=== PATIENT | male | born 1950 | race Caucasian/White ===

== ENCOUNTER 2018-10-26 00:03 | Emergency (ER) | payer OTHER, BC ==
--- OUTSIDE RECORDS SUMMARY | 2018-10-26 00:06 | XMS REPORT | Clinical Summary ---
:1950 Author Organization [facility] Address [address] [place] [id number] Care Team Providers Name Role Phone Unavailable Primary Care Provider Unavailable Allergies Active Allergy Reactions Severity Noted Date Comments Milk Containing Products 07/24/2018 Medications Not on file Active Problems Problem Noted Date Pancreatic cancer 08/27/2018 Encounters Date Type Specialty Care Team Description 08/30/2018 Hospital Encounter Hematology and Iftikhar Perera Malignant neoplasm Oncology MD Alfred of pancreas, unspecified location of malignancy (HCC) (Primary Dx) 08/30/2018 Orders Only Hematology and Iftikhar Perera Oncology MD Alfred after 10/25/2017 Social History Tobacco Use Types Packs/Day Years Used Date Never Assessed Sex Assigned at Date Recorded Not on file Job Start Date Occupation Industry Not on file Not on file Not on file Travel History Travel Start Travel End No recent travel history available. Last Filed Vital Signs Vital Sign Reading Time Taken Blood Pressure 132/77 08/30/2018 1:04 PM CDT Pulse 78 08/30/2018 1:04 PM CDT Temperature 36.4 C (97.5 F) 08/30/2018 1:04 PM CDT Respiratory Rate 17 08/30/2018 1:04 PM CDT Oxygen Saturation 97% 08/30/2018 1:04 PM CDT Inhaled Oxygen Concentration - - Weight 71.7 kg (158 lb 1.1 oz) 08/30/2018 1:04 PM CDT Height 182.9 cm (6') 08/30/2018 1:04 PM CDT Body Mass Index 21.44 08/30/2018 1:04 PM CDT Plan of Treatment Health Maintenance Due Date Last Done Comments COLON CANCER SCREENING 2002 SHINGLES VACCINES (#1) 2002 65+ PNEUMOCOCCAL VACCINE (1 of 2 - PCV13) 2017 PNEUMOCOCCAL POLYSACCHARIDE VACCINE AGE 65 AND OVER 2017 INFLUENZA VACCINE 12/30/2018 Procedures Procedure Name Priority Date/Time Associated Diagnosis Comments HC COMPLETE BLD STAT 08/30/2018 1:02 PM Malignant neoplasm Results for this COUNT W/AUTO DIFF CDT of pancreas, procedure are in unspecified location the results of malignancy (HCC) section. after 10/25/2017 Results CBC with platelet and differential (08/30/2018 1:02 PM CDT) WBC 8.88 4.50 - 11.00 k/uL [facility] RBC 3.68 (L) 4.40 - 6.00 m/uL [facility] HGB 11.0 (L) 14.0 - 18.0 g/dL [facility] HCT 34.0 (L) 41.0 - 51.0 % [facility] MCV 92.4 82.0 - 100.0 fL [facility] MCH 29.9 27.0 - 34.0 pg [facility] MCHC 32.4 31.0 - 37.0 g/dL [facility] RDW - SD 43.5 37.0 - 55.0 fL [facility] MPV 9.6 8.8 - 13.2 fL [facility] Platelet count 216 150 - 400 k/uL [facility] Neutrophils 78.1 (H) 39.0 - 69.0 % [facility] Lymphocytes 12.2 (L) 25.0 - 45.0 % [facility] Monocytes 8.0 0.0 - 10.0 % [facility] Eosinophils 1.2 0.0 - 5.0 % [facility] Basophils 0.5 0.0 - 1.0 % [facility] Specimen Blood Performing Organization Address City/State/Zipcode Phone Number [facility] DEPARTMENT OF PATHOLOGY AND [address] [place] [id number] [facility] [address] [place] [address] after 10/25/2017 Insurance Payer Benefit Plan / Subscriber ID Effective Dates Phone Address Type Group MEDICARE MEDICARE PART A xxxxxxxxxxx 2017-Present [place], [place] Medicare AND B BCBS BCBS PAR/TRAD xxxxxxxxxxxx 2017-Present Indemnity PLAN Advance Directives Patient has advance care planning documents on file. For more information, please contact:Magnus Cheung[address] [place] [address]
--- OUTSIDE RECORDS SUMMARY | 2018-10-26 00:07 | XMS REPORT | Clinical Summary ---
:1950 Author Organization [facility] Address [address] [place] [address] Care Team Providers Name Role Phone Quinn Potts MD Primary Care Provider Allergies Active Allergy Reactions Severity Noted Date Comments Milk Containing Products 07/24/2018 Medications Medication Sig Dispensed Refills Start End Date Status Date levothyroxine Take 100 mcg 0 Active (SYNTHROID, LEVOTHROID) by mouth 100 MCG tablet Every morning on an empty stomach. calcium Take 1 tablet 0 Active carbonate-vitamin D3 by mouth 2 (OSCAL-D) 500 (two) times mg(1,250mg) -200 unit daily with per tablet breakfast and dinner. omega-3 fatty acids-fish Take 1 g by 0 Active oil 340-1,000 mg Cap per mouth daily. capsule aspirin 81 MG EC tablet Take 81 mg by 0 Active mouth daily. cholecalciferol (VITAMIN Take 400 0 Active D3) 400 unit Tab tablet Units by mouth daily. promethazine (PHENERGAN) Take 25 mg by 0 Active 25 MG tablet mouth every 6 (six) hours as needed for Nausea. ondansetron (ZOFRAN) 4 Take 4 mg by 0 Active MG tablet mouth 2 (two) times daily as needed for Nausea. temazepam (RESTORIL) 15 Take 15 mg by 0 Active mg capsule mouth every night as needed for Sleep. irbesartan (AVAPRO) 150 Take 150 mg 0 07/27/19 Discontinued MG tablet by mouth 19 daily. hydroCHLOROthiazide Take 25 mg by 0 07/27/19 Discontinued (HYDRODIURIL) 25 MG mouth daily. 19 tablet rosuvastatin (CRESTOR) 5 Take 5 mg by 0 07/27/19 Discontinued MG tablet mouth daily. 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 Pancreatic mass 07/24/2018 Jaundice 07/24/2018 Encounters Date Type Specialty Care Team Description 10/12/2018 Hospital Encounter Computed Tomography Xavier Velazquez Malignant neoplasm MD [facility] of head of pancreas 1, [facility] (HCC) Ct Room 10/04/2018 Outside Orders Central Scheduling Xavier Velazquez Malignant neoplasm MD [facility] of head of pancreas (HCC) (Primary Dx) 08/09/2018 Hospital Encounter Radiology Cristopher Pena Cancer of head of MD Armando pancreas (HCC) 08/05/2018 Outside Orders Central Scheduling Cristopher Pena Cancer of head of MD Armando pancreas (HCC) (Primary Dx) 07/26/2018 Anesthesia Event Gastroenterology Bernard Larry MD 07/26/2018 Surgery Gastroenterology Kalin Duff, LATASHA GAONA 07/25/2018 Travel 07/24/2018 - Hospital Encounter Oncology Aayush, Ara 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 Last Filed Vital Signs Vital Sign Reading Time Taken Blood Pressure 123/80 08/09/2018 9:30 AM CDT Pulse 60 08/09/2018 9:30 AM CDT Temperature 36.7 C (98.1 F) 08/09/2018 9:15 AM CDT Respiratory Rate 19 08/09/2018 9:30 AM CDT Oxygen Saturation 100% 08/09/2018 9:30 AM CDT Inhaled Oxygen Concentration - - Weight 72.6 kg (160 lb) 07/25/2018 12:25 AM COGENERATION TECHNICIAN Height 182.9 cm (6') 07/25/2018 12:25 AM COGENERATION TECHNICIAN Body Mass Index 21.7 07/25/2018 12:25 AM COGENERATION TECHNICIAN Plan of Treatment Not on file Implants Implanted Type Area Wash Test Checker Device Shelf Model / Identifier Expiration Date Serial / Lot Stent Bili Rx Wallflx 10x80 - [id number] Stents-Pe [employer] [id number] / Implanted: Qty: 1 on 07/26/2018 by Kalin Duff MD ripheral / Procedures Procedure Name Priority Date/Time Associated Comments Diagnosis CT ABDOMEN Routine 10/12/2018 10:43 Malignant neoplasm Results for this WITH/WITHOUT CONTRAST AM CDT of head of pancreas procedure are in (HCC) the results section. POCT-CREATININE Routine 10/12/2018 10:16 Results for this AM CDT procedure are in the results section. IR PORT-A-CATH Routine 08/09/2018 9:05 Cancer of head of Results for this PLACEMENT AM CDT pancreas (HCC) procedure are in the results section. CBC W/PLT COUNT & Routine 08/09/2018 6:35 Results for this AUTO DIFFERENTIAL AM CDT procedure are in the results section. CBC W/PLT COUNT & Routine 08/09/2018 6:35 Results for this AUTO DIFFERENTIAL AM CDT procedure are in the results section. PROTHROMBIN TIME/INR Routine 08/09/2018 6:35 Results for this AM CDT procedure are in the results section. RHYTHM STRIP - SCAN 07/29/2018 2:20 PM COGENERATION TECHNICIAN CBC W/PLT COUNT & Routine 07/27/2018 4:53 Results for this AUTO DIFFERENTIAL AM COGENERATION TECHNICIAN procedure are in the results section. HEPATIC FUNCTION Routine 07/27/2018 4:53 Results for this PANEL AM COGENERATION TECHNICIAN procedure are in the results section. CBC W/PLT COUNT & Routine 07/27/2018 4:53 Results for this AUTO DIFFERENTIAL AM COGENERATION TECHNICIAN procedure are in the results section. MAGNESIUM Routine 07/27/2018 4:53 Results for this AM COGENERATION TECHNICIAN procedure are in the results section. BASIC METABOLIC PANEL Routine 07/27/2018 4:53 Results for this (7) AM COGENERATION TECHNICIAN procedure are in the results section. FL ERCP Routine 07/26/2018 5:15 Results for this PM COGENERATION TECHNICIAN procedure are in the results section. REPORT OF PROCEDURE - 07/26/2018 5:05 ENDOSCOPY URL PM COGENERATION TECHNICIAN REPORT OF PROCEDURE - 07/26/2018 5:02 ENDOSCOPY URL PM COGENERATION TECHNICIAN FINE NEEDLE ASPIRATE Routine 07/26/2018 4:39 Results for this (FNA) REQUEST PM COGENERATION TECHNICIAN procedure are in the results section. FINE NEEDLE AP Routine 07/26/2018 4:39 Results for this ASPIRATION BY PM COGENERATION TECHNICIAN procedure are in CLINICIAN the results section. PROCEDURE W/ C-ARM 07/26/2018 4:00 Bile duct PM COGENERATION TECHNICIAN obstruction UPPER ENDOSCOPY,FNA 07/26/2018 4:00 Bile duct W/ULTRASOUND PM COGENERATION TECHNICIAN obstruction ERCP 07/26/2018 4:00 Bile duct PM COGENERATION TECHNICIAN obstruction CBC W/PLT COUNT & Routine 07/26/2018 3:53 Results for this AUTO DIFFERENTIAL AM COGENERATION TECHNICIAN procedure are in the results section. HEPATIC FUNCTION Routine 07/26/2018 3:53 Results for this PANEL AM COGENERATION TECHNICIAN procedure are in the results section. CBC W/PLT COUNT & Routine 07/26/2018 3:53 Results for this AUTO DIFFERENTIAL AM COGENERATION TECHNICIAN procedure are in the results section. MAGNESIUM Routine 07/26/2018 3:53 Results for this AM COGENERATION TECHNICIAN procedure are in the results section. BASIC METABOLIC PANEL Routine 07/26/2018 3:53 Results for this (7) AM COGENERATION TECHNICIAN procedure are in the results section. CBC W/PLT COUNT & Routine 07/25/2018 4:55 Results for this AUTO DIFFERENTIAL AM COGENERATION TECHNICIAN procedure are in the results section. HEPATIC FUNCTION Routine 07/25/2018 4:55 Results for this PANEL AM COGENERATION TECHNICIAN procedure are in the results section. CBC W/PLT COUNT & Routine 07/25/2018 4:55 Results for this AUTO DIFFERENTIAL AM COGENERATION TECHNICIAN procedure are in the results section. MAGNESIUM Routine 07/25/2018 4:55 Results for this AM COGENERATION TECHNICIAN procedure are in the results section. BASIC METABOLIC PANEL Routine 07/25/2018 4:55 Results for this (7) AM COGENERATION TECHNICIAN procedure are in the results section. CBC W/PLT COUNT & STAT 07/24/2018 6:27 Results for this AUTO DIFFERENTIAL PM COGENERATION TECHNICIAN procedure are in the results section. HEPATIC FUNCTION STAT 07/24/2018 6:27 Results for this PANEL PM COGENERATION TECHNICIAN procedure are in the results section. LIPASE STAT 07/24/2018 6:27 Results for this PM COGENERATION TECHNICIAN procedure are in the results section. BASIC METABOLIC PANEL STAT 07/24/2018 6:27 Results for this (7) PM COGENERATION TECHNICIAN procedure are in the results section. CBC W/PLT COUNT & STAT 07/24/2018 6:27 Results for this AUTO DIFFERENTIAL PM COGENERATION TECHNICIAN procedure are in the results section. after 10/25/[address] abdomen without & with IV contrast (10/12/2018 10:43 AM CDT) Specimen Narrative Performed At FINAL REPORT [facility] EXAM: CT Abdomen WITHOUT and WITH contrast INDICATION: Pancreatic [id number] COMPARISON: Outside CT July 14, 2018 TECHNIQUE:Abdomen was scanned utilizing a multidetector helical scanner from the lung base to the iliac crest before and after administration of IV contrast. Coronal and sagittal reformations were obtained. Pancreas mass protocol was performed. Scan was performed pre- through the liver, arterial phase through the liver and venous phase through the abdomen. IV CONTRAST: 150 mL of Omnipaque 300 ORAL CONTRAST: Water COMPLICATIONS: None RADIATION DOSE: Total DLP: 940 mGy*cm Estimated effective dose: (DLP x 0.015 x size factor) mSv CTDIvol has been reviewed. It is below the limits set by the Radiation Protocol Committee (RPC). FINDINGS: LINES and TUBES: None LOWER THORAX:Emphysematous change. No concerning nodule or mass. HEPATOBILIARY:Pneumobilia. Common bile duct stent with debris in and surrounding the stent. Intrahepatic dilatation. Scattered hypodensities within the liver of which some appear to reflect cysts. In the posterior right hepatic lobe on image 43 a 1 cm lesion indeterminate. GALLBLADDER: Not visualized. SPLEEN: No splenomegaly. PANCREAS: Pancreatic ductal dilatation. Within the body at midline a 1.3 cm cystic lesion and a 0.9 cm cystic lesion seen on image 40 and 44. These have increased in size. Extending inferiorly and medially from the pancreatic head/uncinate process ill-defined 2.5 cm lesion axial image 61 and coronal image 35. Difficult to measure and comparison CT due to phase of contrast. No involvement of the superior mesenteric artery or vein. No involvement of the portal vein. The hepatic arteries arise from the superior mesenteric artery Adenopathy: No enlarged lymph nodes ADRENALS: No adrenal nodules KIDNEYS/URETERS: Kidneys enhance symmetrically.No hydronephrosis. No cystic or solid mass lesions.No stones. GI TRACT: No abnormal distention, wall thickening, or evidence of bowel obstruction. LYMPH NODES: Peripancreatic lymph node adjacent to the SMA axial image 71 measures 0.8 cm in short axis dimension and is increased. Lymph node adjacent to the aorta image 63 measures 1.3 cm in short axis dimension and increased from 1 cm. Lymph node adjacent to the aorta on image 67 measures 1 cm in short axis dimension and increased from 0.8 cm. VESSELS: Unremarkable. PERITONEUM / RETROPERITONEUM: No free air or fluid. BONES: Unremarkable. SOFT TISSUES: Unremarkable. IMPRESSION: 1.Pancreatic adenocarcinoma without vascular involvement. Increase in size of the peripancreatic lymph nodes. 2.Common bile duct stent with luminal debris. Mild intrahepatic dilatation and pneumobilia. 3.Hypodense liver lesions mostly cysts. The 1 cm right hepatic lobe lesion is indeterminate. Signed: Sancho Knight MD Report Verified Date/Time:10/13/2018 11:25:26 Procedure Note Interface, External Ris In - 10/13/2018 11:27 AM CDT FINAL REPORT EXAM: CT Abdomen WITHOUT and WITH contrast INDICATION: Pancreatic adenocarcinoma C25.0 COMPARISON: Outside CT July 14, 2018 TECHNIQUE: Abdomen was scanned utilizing a multidetector helical scanner from the lung base to the iliac crest before and after administration of IV contrast. Coronal and sagittal reformations were obtained. Pancreas mass protocol was performed. Scan was performed pre- through the liver, arterial phase through the liver and venous phase through the abdomen. IV CONTRAST: 150 mL of Omnipaque 300 ORAL CONTRAST: Water COMPLICATIONS: None RADIATION DOSE: Total DLP: 940 mGy*cm Estimated effective dose: (DLP x 0.015 x size factor) mSv CTDIvol has been reviewed. It is below the limits set by the Radiation Protocol Committee (RPC). FINDINGS: LINES and TUBES: None LOWER THORAX: Emphysematous change. No concerning nodule or mass. HEPATOBILIARY: Pneumobilia. Common bile duct stent with debris in and surrounding the stent. Intrahepatic dilatation. Scattered hypodensities within the liver of which some appear to reflect cysts. In the posterior right hepatic lobe on image 43 a 1 cm lesion indeterminate. GALLBLADDER: Not visualized. SPLEEN: No splenomegaly. PANCREAS: Pancreatic ductal dilatation. Within the body at midline a 1.3 cm cystic lesion and a 0.9 cm cystic lesion seen on image 40 and 44. These have increased in size. Extending inferiorly and medially from the pancreatic head/uncinate process ill-defined 2.5 cm lesion axial image 61 and coronal image 35. Difficult to measure and comparison CT due to phase of contrast. No involvement of the superior mesenteric artery or vein. No involvement of the portal vein. The hepatic arteries arise from the superior mesenteric artery Adenopathy: No enlarged lymph nodes ADRENALS: No adrenal nodules KIDNEYS/URETERS: Kidneys enhance symmetrically. No hydronephrosis. No cystic or solid mass lesions. No stones. GI TRACT: No abnormal distention, wall thickening, or evidence of bowel obstruction. LYMPH NODES: Peripancreatic lymph node adjacent to the SMA axial image 71 measures 0.8 cm in short axis dimension and is increased. Lymph node adjacent to the aorta image 63 measures 1.3 cm in short axis dimension and increased from 1 cm. Lymph node adjacent to the aorta on image 67 measures 1 cm in short axis dimension and increased from 0.8 cm. VESSELS: Unremarkable. PERITONEUM / RETROPERITONEUM: No free air or fluid. BONES: Unremarkable. SOFT TISSUES: Unremarkable. IMPRESSION: 1.Pancreatic adenocarcinoma without vascular involvement. Increase in size of the peripancreatic lymph nodes. 2.Common bile duct stent with luminal debris. Mild intrahepatic dilatation and pneumobilia. 3.Hypodense liver lesions mostly cysts. The 1 cm right hepatic lobe lesion is indeterminate. Signed: Sacnho Knight MD Report Verified Date/Time: 10/13/2018 11:25:26 Performing Organization Address City/[facility] Phone Number [employer] POC-Creatinine (10/12/2018 10:16 AM CDT) POC-Creatinine 1.1Comment: TESTED AT [facility] 0.6 - 1.3 mg/dL [facility] [address] [facility] [address] POC-EGFR 67 mL/min/1.73M2 [facility] Specimen Blood Performing Organization Address City/[facility]/Zipcode Phone Number [facility] [address] [place] [address] CENTER IR Port-a-Cath Placement (08/09/2018 9:05 AM CDT) Specimen Narrative Performed At FINAL REPORT [employer] Right internal jugular chest port insertion History: Pancreatic cancer. Modality: Sonography and fluoroscopy. Sedation: Versed 1.0 mg and fentanyl 50 mcg given intravenously for conscious sedation.Vital signs were monitored throughout the procedure by a nurse, and remained stable. Physician intra-service time was 20 minutes. Youth Support Worker:Jozef Pryor MD [employer] Supervisor:None. Approach: Right internal jugular vein Estimated blood loss:< 5 cc. Specimen: None. Fluoroscopy Time: 0.1 min. Reference Air Kerma (Ka, r): 0.1 mGy. Technique: Informed written consent was obtained. Discussion of risks, benefits, and alternatives were made with the patient. The patient expressed understanding and agreed to proceed.A universal timeout was performed prior to starting the procedure.All elements maximal sterile barrier technique was utilized for this procedure, including utilization of sterile scrub solution for skin prep, a large sterile sheet to cover the areas of the patient that were not prepped, and hand hygiene, mask, head covering, and sterile gown for performing radiologist and scrub technologist. The skin was anesthetized with 2% lidocaine.Ultrasound evaluation showed a patent and compressible right internal jugular vein, which was punctured under direct real-time ultrasound guidance with a micropuncture needle.An ultrasound image was saved to PACS. A 0.018 inch wire was placed through the needle into the right atrium. A 4 Tajik micropuncture sheath was placed. A subcutaneous tunnel and pocket were created in the right anterior chest wall by blunt dissection.The pocket was flushed with antibiotic solution. A 6F Bard port was placed within the pocket and the catheter brought through the tunnel. The catheter was cut at 21 cm. A peel-away sheath was placed in the right IJ vein and the catheter was advanced through the sheath, with its distal tip terminating in the cavoatrial junction. The peel-away sheath was removed. The port was flushed and aspirated easily following placement.The skin incision was closed with 3-0 running subcuticular Monocryl and Steri-Strips.The small jugular incision site was closed using Steri-Strips.The patient tolerated the procedure well and left the department in the same condition. Patient received 1 gram of Vancomycin intravenously pre-procedure. Results:Spot radiograph of the chest demonstrates the new right IJ Port-A-Cath to lie in the expected position with its tip overlying the cavoatrial junction. Impression: Successful, uncomplicated placement of a right internal jugular chest port. The port is ready for immediate use. Signed: Jozef Pryor MD Report Verified Date/Time:08/09/2018 11:08:23 Reading Location: [facility] P048 Angio Body Reading Room Procedure Note Interface, External Ris In - 08/09/2018 11:10 AM CDT FINAL REPORT Right internal jugular chest port insertion History: Pancreatic cancer. Modality: Sonography and fluoroscopy. Sedation: Versed 1.0 mg and fentanyl 50 mcg given intravenously for conscious sedation. Vital signs were monitored throughout the procedure by a nurse, and remained stable. Physician intra-service time was 20 minutes. Youth Support Worker: Jozef Pryor MD [employer] Supervisor: None. Approach: Right internal jugular vein Estimated blood loss: < 5 cc. Specimen: None. Fluoroscopy Time: 0.1 min. Reference Air Kerma (Ka, r): 0.1 mGy. Technique: Informed written consent was obtained. Discussion of risks, benefits, and alternatives were made with the patient. The patient expressed understanding and agreed to proceed. A universal timeout was performed prior to starting the procedure. All elements maximal sterile barrier technique was utilized for this procedure, including utilization of sterile scrub solution for skin prep, a large sterile sheet to cover the areas of the patient that were not prepped, and hand hygiene, mask, head covering, and sterile gown for performing radiologist and scrub technologist. The skin was anesthetized with 2% lidocaine. Ultrasound evaluation showed a patent and compressible right internal jugular vein, which was punctured under direct real-time ultrasound guidance with a micropuncture needle. An ultrasound image was saved to PACS. A 0.018 inch wire was placed through the needle into the right atrium. A 4 Tajik micropuncture sheath was placed. A subcutaneous tunnel and pocket were created in the right anterior chest wall by blunt dissection. The pocket was flushed with antibiotic solution. A 6F Bard port was placed within the pocket and the catheter brought through the tunnel. The catheter was cut at 21 cm. A peel-away sheath was placed in the right IJ vein and the catheter was advanced through the sheath, with its distal tip terminating in the cavoatrial junction. The peel-away sheath was removed. The port was flushed and aspirated easily following placement. The skin incision was closed with 3-0 running subcuticular Monocryl and Steri-Strips. The small jugular incision site was closed using Steri-Strips. The patient tolerated the procedure well and left the department in the same condition. Patient received 1 gram of Vancomycin intravenously pre-procedure. Results: Spot radiograph of the chest demonstrates the new right IJ Port-A-Cath to lie in the expected position with its tip overlying the cavoatrial junction. Impression: Successful, uncomplicated placement of a right internal jugular chest port. The port is ready for immediate use. Signed: Jozef Pryor MD Report Verified Date/Time: 08/09/2018 11:08:23 Reading Location: [facility] P048 Angio Body Reading Room Performing Organization Address City/State/Zipcode Phone Number GE RIS CBC with platelet count + automated diff (08/09/2018 6:35 AM CDT)Only the most recent of5 resultswithin the time period is included. WBC 5.6 3.5 - 10.5 K/L [facility] RBC 3.83 (L) 4.63 - 6.08 M/L [facility] Hemoglobin 12.0 (L) 13.7 - 17.5 GM/DL [facility] Hematocrit 36.9 (L) 40.1 - 51.0 % [facility] MCV 96.3 (H) 79.0 - 92.2 fL [facility] MCH 31.3 25.7 - 32.2 pg [facility] MCHC 32.5 32.3 - 36.5 GM/DL [facility] RDW 13.5 11.6 - 14.4 % [facility] Platelets 292 150 - 450 K/CU MM [facility] MPV 8.8 (L) 9.4 - 12.4 fL [facility] nRBC 0 0 - 0 /100 WBC [facility] % Neutros 68 % [facility] % Lymphs 20 % [facility] % Monos 8 % [facility] % Eos 3 % [facility] % Baso 0 % [facility] # Neutros 3.77 1.78 - 5.38 K/L [facility] # Lymphs 1.12 (L) 1.32 - 3.57 K/L [facility] # Monos 0.46 0.30 - 0.82 K/L [facility] # Eos 0.18 0.04 - 0.54 K/L [facility] # Baso 0.01 0.01 - 0.08 K/L [facility] Immature Granulocytes-Relative 0 0 - 1 % [facility] Specimen Blood Performing Organization Address City/[facility] Phone Number [address] [address] CENTER Prothrombin time/INR (08/09/2018 6:35 AM CDT) Protime 13.9 11.7 - 14.7 seconds [facility] INR 1.0 <=5.9 [facility] Specimen Blood Narrative Performed At RECOMMENDED COUMADIN/WARFARIN INR THERAPY [facility] RANGES STANDARD DOSE: 2.0 - 3.0 Includes: PROPHYLAXIS for venous thrombosis, systemic embolization; TREATMENT for venous thrombosis and/or pulmonary embolus. HIGH RISK: Target INR is 2.5-3.5 for patients with mechanical heart valves. Performing Organization Address City/[facility] Phone Number [address] [address] CENTER RHYTHM STRIP - SCAN (07/29/2018 2:20 PM COGENERATION TECHNICIAN) Narrative Performed At Magnesium (07/27/2018 4:53 AM COGENERATION TECHNICIAN)Only the most recent of3 resultswithin the time period is included. Magnesium 2.0 1.6 - 2.6 mg/dL [facility] Specimen Blood Performing Organization Address City/[facility] Hospitalcode Phone Number [address] [address] [place] Hepatic function panel (07/27/2018 4:53 AM COGENERATION TECHNICIAN)Only the most recent of4 resultswithin the time period is included. Protein, Total 5.3 (L) 6.0 - 8.3 gm/dL [facility] Albumin 3.3 (L) 3.5 - 5.0 g/dL [facility] Total Bilirubin 7.9 (H) 0.2 - 1.2 mg/dL [facility] Bilirubin, Direct 5.2 (H) 0.1 - 0.5 mg/dL [facility] Alkaline Phosphatase 231 (H) 40 - 150 U/L [facility] AST 61 (H) 5 - 34 U/L [facility] ALT 264 (H) 6 - 55 U/L [facility] Specimen Blood Narrative Performed At Specimen moderately icteric [facility] [facility] Performing Organization Address City/State/Zipcode Phone Number [address] [phone] [place] Basic Metabolic Panel (07/27/2018 4:53 AM COGENERATION TECHNICIAN)Only the most recent of4 resultswithin the time period is included. Sodium 135 (L) 136 - 145 meq/L [facility] Potassium 4.4 3.5 - 5.1 meq/L [facility] Chloride 107 98 - 107 meq/L [facility] CO2 23 22 - 29 meq/L [facility] BUN 12 7 - 21 mg/dL [facility] Creatinine 1.03 0.57 - 1.25 mg/dL [facility] Glucose 99 70 - 105 mg/dL [facility] Calcium 9.3 8.4 - 10.2 mg/dL [facility] EGFR 72Comment: ESTIMATED GFR IS mL/min/1.73 sq m [facility] NOT ACCURATE CREATININE [facility] CENTER CLEARANCE IN PREDICTING GLOMERULAR FILTRATION RATE. ESTIMATED GFR IS NOT APPLICABLE FOR DIALYSIS PATIENTS. Specimen Blood Narrative Performed At Specimen moderately icteric [facility] Performing Organization Address City/[facility]/Zipcode Phone Number [facility] [address] [place], [place] [phone] CENTER [place] ERCP (07/26/2018 5:15 PM COGENERATION TECHNICIAN) Specimen Narrative Performed At PROCEDURE PERFORMED IN O.R. - PLEASE REFER TO THE INTRAOPERATIVE GE RIS REPORT. Procedure Note Interface, External Ris In - 07/28/2018 12:51 PM COGENERATION TECHNICIAN PROCEDURE PERFORMED IN O.R. - PLEASE REFER TO THE INTRAOPERATIVE REPORT. Performing Organization Address [facility] Phone Number GE RIS REPORT OF PROCEDURE - ENDOSCOPY URL (07/26/2018 5:05 PM COGENERATION TECHNICIAN) Narrative Performed At REPORT OF PROCEDURE - ENDOSCOPY URL (07/26/2018 5:02 PM COGENERATION TECHNICIAN) Narrative Performed At FINE NEEDLE ASPIRATE (FNA) REQUEST (07/26/2018 4:39 PM COGENERATION TECHNICIAN) Cytology See Separate Report [facility] Specimen Fine Needle Aspirate Performing Organization Address [facility]/Zipcode Phone Number [facility] [address] [place] [address] [phone] CENTER Fine Needle Aspirate by Clinician (07/26/2018 4:39 PM COGENERATION TECHNICIAN) Case Report Medical Cytology Report Case: [id number] [facility] Authorizing Provider:Kalin Duff MD Collected: 07/26/2018 1639 [facility] Ordering Location: [address] Received: 07/27/2018 0940 SERVICE Pathologist: Prema Jaquez MD Specimen:Pancreas, pancreas head mass in CRR ADDENDUM 2 The addendum is being issued to report the results MSI testing by PCR performed at the request of oncologist. [facility] The diagnosis remains unchanged. [facility] The testing could not be performed as no suitable normal control was submitted for testing. Please see the scanned report for details. ADDENDUM The addendum is being issued to report the results of immunohistochemistry (IHC) testing for Mismatch Repair (MMR) Proteins, which has been performed at the request of the oncologist. The diagnosis remains unchanged. [facility] IHC testing for all four MMR proteins was performed on selected block with appropriate controls. RESULTS MLH1: Intact nuclear expression MSH2: Intact nuclear expression MSH6: Intact nuclear expression (weak and focal) PMS2: Intact nuclear expression IHC Interpretation No loss of nuclear expression of MMR proteins: low probability of microsatellite instability-high (MSI-H)# Immunohistochemistry disclaimer: The immunohistochemistry test was developed and its performance characteristics determined by [facility], Pathology Laboratory. It has not been cleared or approved by the U.S. Food and Drug Administration. The FDA has determined that such clearance or approval is not necessary. The test is used for clinical purposes. It should not be regarded as investigational or for research. This laboratory is certified under the Clinical Laboratory Improvement Amendments of 1988 (CLIA-88) as qualified to perform high complexity clinical laboratory testing. Additional CPT code: 69512, 86183 x3 DIAGNOSIS PANCREAS HEAD MASS FNA BY CLINICIAN (CYTOSPINS AND CELL BLOCK OF ASPIRATE): [facility] - POSITIVE FOR MALIGNANCY [facility] - ADENOCARCINOMA, SEE COMMENT Signing Pathologist Direct Phone Line: [phone] COMMENT - Cell block shows invasive [facility] moderately to poorly [facility] adenocarcinoma with desmoplastic stroma. CPT Code(s) 90707, 74315 [facility] CLINICAL DATA (3.8 X 3.1 cm) irregular mass [facility] in the pancreatic head [facility] SPECIMEN SOURCE PANCREAS HEAD MASS FNA [facility] GROSS DESCRIPTION 40 mls in cytorich red; 4 cytospins, cell block [facility] Collected: [id number] [facility] Received: [id number] Gross assessment was [facility] performed at [place], Department [facility] Pathology, [address] [place] [phone], Technical component was [facility] performed at [place], Department [facility] Pathology, [address] [place] [phone], Professional component [facility] was performed at [place], Department of [facility] Pathology, [address] [place] [phone], Specimen Fine Needle Aspirate Narrative Performed At Performing Organization Address City/State/Zipcode Phone Number [address] [address] [phone] CENTER Lipase (07/24/2018 6:27 PM COGENERATION TECHNICIAN) Lipase 19 8 - 78 U/L [facility] Specimen Blood Narrative Performed At Specimen markedly icteric [facility] Performing Organization Address City/State/Zipcode Phone Number [address] [address] [phone] [place] after 10/25/2017 Insurance Payer Benefit Plan / Subscriber ID Type Phone Address Group MEDICARE MEDICARE A B xxxxxxxxxxx Medicare BLUE CROSS/BLUE [place] INDEMNITY [place] xxxxxxxxxxxx [facility] [phone] [address] [place] [address] Advance Directives For more information, please contact:[address] [phone] Code Status Date Activated Date Inactivated Comments Full Code 07/24/2018 11:24 PM 07/27/2018 9:45 PM This code status was determined by: Patient
--- OUTSIDE RECORDS SUMMARY | 2018-10-26 00:07 | XMS REPORT ---
:1950 Author Organization [facility] Address [address] [place] [address] Care Team Providers Name Role Phone KETTY BUCHANAN Unavailable Unavailable VIRAL RODARTE Unavailable Unavailable GALEN, FANY URBINA Unavailable Unavailable Problems This patient has no known problems. Allergies, Adverse Reactions, Alerts This patient has no known allergies or adverse reactions. Medications This patient has no known medications. Results Test Description Test Time Test Comments Text Results Atomic Results Result Comments CT, ABDOMEN, / 2018-10-13 11:25:00 FINAL REPORT WITH IV CONTRAST EXAM: CT Abdomen WITHOUT and WITH contrast INDICATION: Pancreatic adenocarcinoma C25.0 COMPARISON: Outside CT July 14, 2018TECHNIQUE: Abdomen was scanned utilizing a multidetector helical [...] Increase in size of the peripancreatic lymph nodes.2.Common bile duct stent with luminal debris. Mild intrahepatic dilatation and pneumobilia.3.Hypodense liver lesions mostly cysts. The 1 cm right hepatic lobe lesion is indeterminate. Signed: Sancho Knight MDReport Verified Date/Time: 10/13/2018 11:25:26 -CREATININE 2018-10-12 10:20:00 Test Item Value Reference Range Comments POC-CREATININE (BEAKER) (test 1.1 mg/dL 0.6-1.3 TESTED AT [facility] 7200 ciaq=6829) [facility] [address] POC-EGFR (BEAKER) (test 67 mL/min/1.73M2 exnm=4880) FINE NEEDLE ASPIRATION BY [id number] 08:47:00Medical Cytology Report Case: [id number] Authorizing Provider: Kalin Duff MD Collected: 2018 1639 Ordering Location: [address] Received : 07/27/2018 0940 SERVICE Pathologist: Prema Jaquez MD Specimen: Pancreas, pancreas head mass in CRR The addendum is being issued to report the results MSI testing by PCR performed at the request of oncologist.The diagnosis remains unchanged. The testing could not be performed as no suitable normal control was submitted for testing. Please see the scanned report for details.Addendum electronically signed by Dru Alcantara MD on 09/03/2018 at 8:47 AMThe addendum is being issued to report the results of immunohistochemistry (IHC) testing for Mismatch Repair (MMR) Proteins, which has been performed at the request of the oncologist. The diagnosis remains unchanged.IHC testing for all four MMR proteins was performed on selected block with appropriate controls.RESULTSMLH1: Intact nuclear expressionMSH2: Intact nuclear expressionMSH6: Intact nuclear expression (weak and focal)PMS2: Intact nuclear expressionIHC InterpretationNo loss of nuclear expression of MMR proteins: low probability of microsatellite instability-high (MSI-H)#Immunohistochemistry disclaimer:The immunohistochemistry test was developed and its performance characteristics determined by [facility], Pathology Laboratory. It has not been cleared [...] qualified to perform high complexity clinical laboratory testing.Additional CPT code:86339, 27150 [id number] electronically signed by Tamanna Salinas MD on 08/13/2018 at12:24 PMPANCREAS HEAD MASS FNA BY CLINICIAN (CYTOSPINS AND CELL BLOCK OF ASPIRATE): - POSITIVE FORMALIGNANCY - ADENOCARCINOMA, SEE COMMENT Signing Pathologist Direct Phone Line: [phone] signed by Prema Jaquez MD on 07/28/2018 at 12:13 PM- Cell block shows invasive moderately to poorly adenocarcinoma with desmoplastic stroma.06261, 69752(3.8 X 3.1 cm) irregular mass in the pancreatic headPANCREAS HEAD MASS FNA40 mls in cytorich red; 4 cytospins, cell blockCollected: [id number]: [id number] [place] [facility], Department of Pathology, [address] [place] [address], [facility] [place] [facility], Department of Pathology, [address] [place] [address], [facility] [place] [facility], Department of Pathology, [address] [place] [address], ORR, TUNNEL CATH CENTRAL INS W/PORT [id number] 11:08: 00Reason for Exam:->C25.0FINAL REPORT Right internal jugular chest port insertion History: Pancreatic cancer. Modality: Sonography and fluoroscopy. Sedation: Versed 1.0 mg and fentanyl 50 mcg given intravenously for conscious sedation. Vital signs were monitored throughout the procedure by a nurse, and remained stable. Physician intra-service time was 20 minutes. Scanner Operator: Jozef Pryor MD Dent Remover: None. Approach: Right internal jugular vein Estimated blood loss: < 5 cc. Specimen: None. Fluoroscopy Time: 0.1 min.Reference Air Kerma (Ka, r): 0.1 mGy. Technique: [...] jugular vein, which was punctured under direct real- time ultrasound guidance with a micropuncture needle. An ultrasound image was saved to PACS. A 0.018 inch wire was placed through the needle into the right atrium. A 4 [place] Konger micropuncture sheath was placed. A subcutaneous tunnel [...] placement. The skin incision was closed with 3- 0 running subcuticular Monocryl and Steri-Strips. Thesmall jugular incision site was closed using Steri-Strips. The patient tolerated the procedure welland left the department in the same condition. Patient received 1 gram of Vancomycin intravenously pre-procedure. Results: Spot radiograph of the chest demonstrates the new right IJ Port-A-Cath to lie in the expected position with its tip overlying the cavoatrial junction. Impression: Successful, uncomplicated placement of a right internal jugular chest port. The port is ready for immediate use. Signed: Jozef Pryor Verified Date/Time: 08/09 11:08:23 Reading Location: [place] [address] Angio Body Reading Room PROTHROMBIN TIME/[id number] 06:55:00 Test Item Value Reference Range Comments PROTIME (BEAKER) (test lkak=252) 13.9 seconds 11.7-14.7 INR (BEAKER) (test ixnv=461) 1.0 <=5.9 RECOMMENDED COUMADIN/WARFARIN INR THERAPY RANGESSTANDARD DOSE: 2.0 - 3.0 Includes: PROPHYLAXIS forvenous thrombosis, systemic embolization; TREATMENT for venous thrombosis and/or pulmonary embolus.HIGH RISK: Target INR is 2.5-3.5 for patients with mechanical heart valves.CBC W/PLT COUNT & AUTO [id number] 06:43:00 Test Item Value Reference Range Comments WHITE BLOOD CELL COUNT (BEAKER) (test fhvn=286) 5.6 K/ L 3.5-10.5 RED BLOOD CELL COUNT (BEAKER) (test rnzf=152) 3.83 M/ L 4.63-6.08 HEMOGLOBIN (BEAKER) (test uqji=570) 12.0 GM/DL 13.7-17.5 HEMATOCRIT (BEAKER) (test ccmn=463) 36.9 % 40.1-51.0 MEAN CORPUSCULAR VOLUME (BEAKER) (test zhai=574) 96.3 fL 79.0-92.2 MEAN CORPUSCULAR HEMOGLOBIN (BEAKER) (test 31.3 pg 25.7-32.2 kfpr=259) MEAN CORPUSCULAR HEMOGLOBIN CONC (BEAKER) (test 32.5 GM/DL 32.3-36.5 bubl=234) RED CELL DISTRIBUTION WIDTH (BEAKER) (test 13.5 % 11.6-14.4 dwne=442) PLATELET COUNT (BEAKER) (test vghw=966) 292 K/CU MM 150-450 MEAN PLATELET VOLUME (BEAKER) (test ibua=215) 8.8 fL 9.4-12.4 NUCLEATED RED BLOOD CELLS (BEAKER) (test 0 /100 WBC 0-0 ieic=521) NEUTROPHILS RELATIVE PERCENT (BEAKER) (test 68 % frzg=174) LYMPHOCYTES RELATIVE PERCENT (BEAKER) (test 20 % qjcg=934) MONOCYTES RELATIVE PERCENT (BEAKER) (test 8 % ukrd=262) EOSINOPHILS RELATIVE PERCENT (BEAKER) (test 3 % fzer=913) BASOPHILS RELATIVE PERCENT (BEAKER) (test 0 % bfgb=366) NEUTROPHILS ABSOLUTE COUNT (BEAKER) (test 3.77 K/ L 1.78-5.38 ahaj=019) LYMPHOCYTES ABSOLUTE COUNT (BEAKER) (test 1.12 K/ L 1.32-3.57 rrbp=960) MONOCYTES ABSOLUTE COUNT (BEAKER) (test 0.46 K/ L 0.30-0.82 vkqm=889) EOSINOPHILS ABSOLUTE COUNT (BEAKER) (test 0.18 K/ L 0.04-0.54 aluh=991) BASOPHILS ABSOLUTE COUNT (BEAKER) (test 0.01 K/ L 0.01-0.08 ovqz=991) IMMATURE GRANULOCYTES-RELATIVE PERCENT (BEAKER) 0 % 0-1 (test kwri=7850) FL, [id number] 12:51:00INTRA OP IMAGINGReason for exam:->ABNORMAL IMAGINGPROCEDURE PERFORMED IN O.R. - PLEASE REFER TO THE INTRAOPERATIVE REPORT. FINE NEEDLE ASPIRATE (FNA) [id number] 11:02:00 Test Item Value Reference Range Comments CYTOLOGY RESULT POINTER (BEAKER) (test See Separate Report evrl=4685) [id number] 05:31:00 Test Item Value Reference Range Comments MAGNESIUM (BEAKER) (test ucfl=838) 2.0 mg/dL 1.6-2.6 BASIC METABOLIC [id number] 05:31:00 Test Item Value Reference Range Comments SODIUM (BEAKER) (test 135 meq/L 136-145 ebli=299) POTASSIUM (BEAKER) (test 4.4 meq/L 3.5-5.1 nqek=759) CHLORIDE (BEAKER) (test 107 meq/L 98-107 nwfh=097) CO2 (BEAKER) (test 23 meq/L 22-29 qaqg=686) BLOOD UREA NITROGEN 12 mg/dL 7-21 (BEAKER) (test hdgb=657) CREATININE (BEAKER) (test 1.03 mg/dL 0.57-1.25 aiuf=751) GLUCOSE RANDOM (BEAKER) 99 mg/dL 70-105 (test clme=545) CALCIUM (BEAKER) (test 9.3 mg/dL 8.4-10.2 sjrb=132) EGFR (BEAKER) (test 72 mL/min/1.73 sq m ESTIMATED GFR IS NOT kmwd=7655) ACCURATE CREATININE CLEARANCE IN PREDICTING GLOMERULAR FILTRATION RATE. ESTIMATED GFR IS NOT APPLICABLE FOR DIALYSIS PATIENTS. Specimen moderately ictericHEPATIC FUNCTION [id number] 05:31:00 Test Item Value Reference Range Comments TOTAL PROTEIN (BEAKER) (test cpzy=842) 5.3 gm/dL 6.0-8.3 ALBUMIN (BEAKER) (test hdwj=9808) 3.3 g/dL 3.5-5.0 BILIRUBIN TOTAL (BEAKER) (test khgn=489) 7.9 mg/dL 0.2-1.2 BILIRUBIN DIRECT (BEAKER) (test utlq=623) 5.2 mg/dL 0.1-0.5 ALKALINE PHOSPHATASE (BEAKER) (test lukz=360) 231 U/L 40-150 AST (SGOT) (BEAKER) (test ycxu=530) 61 U/L 5-34 ALT (SGPT) (BEAKER) (test wrno=868) 264 U/L 6-55 Specimen moderately ictericCBC W/PLT COUNT & AUTO [id number] 05: 07:00 Test Item Value Reference Range Comments WHITE BLOOD CELL COUNT (BEAKER) (test jtrj=904) 3.2 K/ L 3.5-10.5 RED BLOOD CELL COUNT (BEAKER) (test rtep=837) 3.34 M/ L 4.63-6.08 HEMOGLOBIN (BEAKER) (test sxtq=288) 10.5 GM/DL 13.7-17.5 HEMATOCRIT (BEAKER) (test qtkm=087) 32.9 % 40.1-51.0 MEAN CORPUSCULAR VOLUME (BEAKER) (test bmix=278) 98.5 fL 79.0-92.2 MEAN CORPUSCULAR HEMOGLOBIN (BEAKER) (test 31.4 pg 25.7-32.2 lmse=379) MEAN CORPUSCULAR HEMOGLOBIN CONC (BEAKER) (test 31.9 GM/DL 32.3-36.5 nmsr=560) RED CELL DISTRIBUTION WIDTH (BEAKER) (test 14.2 % 11.6-14.4 cmhf=663) PLATELET COUNT (BEAKER) (test ggzt=897) 221 K/CU MM 150-450 MEAN PLATELET VOLUME (BEAKER) (test ucck=987) 10.3 fL 9.4-12.4 NUCLEATED RED BLOOD CELLS (BEAKER) (test 0 /100 WBC 0-0 jrmb=241) NEUTROPHILS RELATIVE PERCENT (BEAKER) (test 74 % vibu=382) LYMPHOCYTES RELATIVE PERCENT (BEAKER) (test 17 % ooyo=561) MONOCYTES RELATIVE PERCENT (BEAKER) (test 8 % xims=373) EOSINOPHILS RELATIVE PERCENT (BEAKER) (test 1 % zpto=309) BASOPHILS RELATIVE PERCENT (BEAKER) (test 0 % jmmu=070) NEUTROPHILS ABSOLUTE COUNT (BEAKER) (test 2.37 K/ L 1.78-5.38 luma=498) LYMPHOCYTES ABSOLUTE COUNT (BEAKER) (test 0.55 K/ L 1.32-3.57 bcrq=400) MONOCYTES ABSOLUTE COUNT (BEAKER) (test 0.26 K/ L 0.30-0.82 zfzz=251) EOSINOPHILS ABSOLUTE COUNT (BEAKER) (test 0.02 K/ L 0.04-0.54 iwhq=429) BASOPHILS ABSOLUTE COUNT (BEAKER) (test 0.01 K/ L 0.01-0.08 wrbl=283) IMMATURE GRANULOCYTES-RELATIVE PERCENT (BEAKER) 0 % 0-1 (test pqtg=2493) [id number] 05:52:00 Test Item Value Reference Range Comments MAGNESIUM (BEAKER) (test acvs=261) 2.1 mg/dL 1.6-2.6 BASIC METABOLIC [id number] 05:52:00 Test Item Value Reference Range Comments SODIUM (BEAKER) (test 136 meq/L 136-145 kxfl=586) POTASSIUM (BEAKER) (test 3.9 meq/L 3.5-5.1 hmcb=702) CHLORIDE (BEAKER) (test 104 meq/L 98-107 yiom=552) CO2 (BEAKER) (test 25 meq/L 22-29 aakx=094) BLOOD UREA NITROGEN 13 mg/dL 7-21 (BEAKER) (test oast=130) CREATININE (BEAKER) (test 1.08 mg/dL 0.57-1.25 dklj=585) GLUCOSE RANDOM (BEAKER) 84 mg/dL 70-105 (test emcs=951) CALCIUM (BEAKER) (test 9.2 mg/dL 8.4-10.2 qedt=413) EGFR (BEAKER) (test 69 mL/min/1.73 sq m ESTIMATED GFR IS NOT ilxm=0975) ACCURATE CREATININE CLEARANCE IN PREDICTING GLOMERULAR FILTRATION RATE. ESTIMATED GFR IS NOT APPLICABLE FOR DIALYSIS PATIENTS. Specimen moderately ictericHEPATIC FUNCTION [id number] 05:52:00 Test Item Value Reference Range Comments TOTAL PROTEIN (BEAKER) (test nxay=597) 5.2 gm/dL 6.0-8.3 ALBUMIN (BEAKER) (test hitz=0354) 3.3 g/dL 3.5-5.0 BILIRUBIN TOTAL (BEAKER) (test xkdc=503) 10.6 mg/dL 0.2-1.2 BILIRUBIN DIRECT (BEAKER) (test gwqx=902) 7.1 mg/dL 0.1-0.5 ALKALINE PHOSPHATASE (BEAKER) (test wiov=705) 242 U/L 40-150 AST (SGOT) (BEAKER) (test gunb=886) 80 U/L 5-34 ALT (SGPT) (BEAKER) (test yqas=747) 321 U/L 6-55 Specimen moderately ictericCBC W/PLT COUNT & AUTO [id number] 05: 35:00 Test Item Value Reference Range Comments WHITE BLOOD CELL COUNT (BEAKER) (test tslv=812) 3.8 K/ L 3.5-10.5 RED BLOOD CELL COUNT (BEAKER) (test cgzz=251) 3.34 M/ L 4.63-6.08 HEMOGLOBIN (BEAKER) (test piai=804) 10.4 GM/DL 13.7-17.5 HEMATOCRIT (BEAKER) (test iqzu=954) 31.9 % 40.1-51.0 MEAN CORPUSCULAR VOLUME (BEAKER) (test vuhw=078) 95.5 fL 79.0-92.2 MEAN CORPUSCULAR HEMOGLOBIN (BEAKER) (test 31.1 pg 25.7-32.2 uxxc=034) MEAN CORPUSCULAR HEMOGLOBIN CONC (BEAKER) (test 32.6 GM/DL 32.3-36.5 dmci=402) RED CELL DISTRIBUTION WIDTH (BEAKER) (test 13.7 % 11.6-14.4 blya=401) PLATELET COUNT (BEAKER) (test nvra=772) 215 K/CU MM 150-450 MEAN PLATELET VOLUME (BEAKER) (test iljp=770) 10.9 fL 9.4-12.4 NUCLEATED RED BLOOD CELLS (BEAKER) (test 0 /100 WBC 0-0 hzaq=119) NEUTROPHILS RELATIVE PERCENT (BEAKER) (test 66 % wsed=796) LYMPHOCYTES RELATIVE PERCENT (BEAKER) (test 19 % pbgx=938) MONOCYTES RELATIVE PERCENT (BEAKER) (test 11 % mfwm=170) EOSINOPHILS RELATIVE PERCENT (BEAKER) (test 3 % oeds=129) BASOPHILS RELATIVE PERCENT (BEAKER) (test 0 % orts=943) NEUTROPHILS ABSOLUTE COUNT (BEAKER) (test 2.52 K/ L 1.78-5.38 gyuk=058) LYMPHOCYTES ABSOLUTE COUNT (BEAKER) (test 0.74 K/ L 1.32-3.57 bbbt=782) MONOCYTES ABSOLUTE COUNT (BEAKER) (test 0.43 K/ L 0.30-0.82 cwtl=434) EOSINOPHILS ABSOLUTE COUNT (BEAKER) (test 0.11 K/ L 0.04-0.54 mwyv=781) BASOPHILS ABSOLUTE COUNT (BEAKER) (test 0.01 K/ L 0.01-0.08 mtng=300) IMMATURE GRANULOCYTES-RELATIVE PERCENT (BEAKER) 0 % 0-1 (test lhoz=1734) [id number] 06:48:00 Test Item Value Reference Range Comments MAGNESIUM (BEAKER) (test lhgj=288) 2.0 mg/dL 1.6-2.6 BASIC METABOLIC [id number] 06:48:00 Test Item Value Reference Range Comments SODIUM (BEAKER) (test 133 meq/L 136-145 bdew=932) POTASSIUM (BEAKER) (test 3.9 meq/L 3.5-5.1 iktz=578) CHLORIDE (BEAKER) (test 98 meq/L 98-107 tgia=933) CO2 (BEAKER) (test 25 meq/L 22-29 fpwi=276) BLOOD UREA NITROGEN 18 mg/dL 7-21 (BEAKER) (test hatj=018) CREATININE (BEAKER) (test 1.09 mg/dL 0.57-1.25 znjv=323) GLUCOSE RANDOM (BEAKER) 78 mg/dL 70-105 (test rtcb=429) CALCIUM (BEAKER) (test 9.5 mg/dL 8.4-10.2 ivyv=664) EGFR (BEAKER) (test 68 mL/min/1.73 sq m ESTIMATED GFR IS NOT riey=5678) ACCURATE CREATININE CLEARANCE IN PREDICTING GLOMERULAR FILTRATION RATE. ESTIMATED GFR IS NOT APPLICABLE FOR DIALYSIS PATIENTS. Specimen moderately ictericHEPATIC FUNCTION [id number] 06:48:00 Test Item Value Reference Range Comments TOTAL PROTEIN (BEAKER) (test vgvb=412) 5.5 gm/dL 6.0-8.3 ALBUMIN (BEAKER) (test omyq=8157) 3.4 g/dL 3.5-5.0 BILIRUBIN TOTAL (BEAKER) (test kcfh=288) 11.6 mg/dL 0.2-1.2 BILIRUBIN DIRECT (BEAKER) (test jbfe=455) 7.7 mg/dL 0.1-0.5 ALKALINE PHOSPHATASE (BEAKER) (test fdqg=890) 275 U/L 40-150 AST (SGOT) (BEAKER) (test hgsm=842) 99 U/L 5-34 ALT (SGPT) (BEAKER) (test azhf=144) 417 U/L 6-55 Specimen moderately ictericCBC W/PLT COUNT & AUTO [id number] 05: 54:00 Test Item Value Reference Range Comments WHITE BLOOD CELL COUNT (BEAKER) (test ypfx=215) 5.3 K/ L 3.5-10.5 RED BLOOD CELL COUNT (BEAKER) (test iure=774) 3.95 M/ L 4.63-6.08 HEMOGLOBIN (BEAKER) (test rwcl=110) 12.2 GM/DL 13.7-17.5 HEMATOCRIT (BEAKER) (test kbai=494) 37.2 % 40.1-51.0 MEAN CORPUSCULAR VOLUME (BEAKER) (test cxwf=452) 94.2 fL 79.0-92.2 MEAN CORPUSCULAR HEMOGLOBIN (BEAKER) (test 30.9 pg 25.7-32.2 xcik=682) MEAN CORPUSCULAR HEMOGLOBIN CONC (BEAKER) (test 32.8 GM/DL 32.3-36.5 hvnb=639) RED CELL DISTRIBUTION WIDTH (BEAKER) (test 13.3 % 11.6-14.4 pbrd=493) PLATELET COUNT (BEAKER) (test bswm=347) 231 K/CU MM 150-450 MEAN PLATELET VOLUME (BEAKER) (test jqmh=922) 10.7 fL 9.4-12.4 NUCLEATED RED BLOOD CELLS (BEAKER) (test 0 /100 WBC 0-0 nkdi=413) NEUTROPHILS RELATIVE PERCENT (BEAKER) (test 70 % lbgv=176) LYMPHOCYTES RELATIVE PERCENT (BEAKER) (test 18 % oexr=407) MONOCYTES RELATIVE PERCENT (BEAKER) (test 10 % etli=369) EOSINOPHILS RELATIVE PERCENT (BEAKER) (test 2 % ayii=230) BASOPHILS RELATIVE PERCENT (BEAKER) (test 0 % jlsw=760) NEUTROPHILS ABSOLUTE COUNT (BEAKER) (test 3.75 K/ L 1.78-5.38 btri=074) LYMPHOCYTES ABSOLUTE COUNT (BEAKER) (test 0.93 K/ L 1.32-3.57 vnwj=689) MONOCYTES ABSOLUTE COUNT (BEAKER) (test 0.53 K/ L 0.30-0.82 kgpi=681) EOSINOPHILS ABSOLUTE COUNT (BEAKER) (test 0.08 K/ L 0.04-0.54 ojzx=469) BASOPHILS ABSOLUTE COUNT (BEAKER) (test 0.02 K/ L 0.01-0.08 mvgd=562) IMMATURE GRANULOCYTES-RELATIVE PERCENT (BEAKER) 0 % 0-1 (test xvjc=0893) BASIC METABOLIC [id number] 21:28:00 Test Item Value Reference Range Comments SODIUM (BEAKER) (test 129 meq/L 136-145 eqay=397) POTASSIUM (BEAKER) (test 3.8 meq/L 3.5-5.1 zxzb=110) CHLORIDE (BEAKER) (test 91 meq/L 98-107 esbt=842) CO2 (BEAKER) (test 23 meq/L 22-29 wovd=017) BLOOD UREA NITROGEN 21 mg/dL 7-21 (BEAKER) (test zmnq=019) CREATININE (BEAKER) (test 1.22 mg/dL 0.57-1.25 ucxb=064) GLUCOSE RANDOM (BEAKER) 86 mg/dL 70-105 (test vjbu=640) CALCIUM (BEAKER) (test 10.5 mg/dL 8.4-10.2 lvjb=796) EGFR (BEAKER) (test 60 mL/min/1.73 sq m ESTIMATED GFR IS NOT vlfq=3317) ACCURATE CREATININE CLEARANCE IN PREDICTING GLOMERULAR FILTRATION RATE. ESTIMATED GFR IS NOT APPLICABLE FOR DIALYSIS PATIENTS. Specimen markedly ictericHEPATIC FUNCTION [id number] 21:28:00 Test Item Value Reference Range Comments TOTAL PROTEIN (BEAKER) (test gxvc=381) 6.8 gm/dL 6.0-8.3 ALBUMIN (BEAKER) (test dplp=7892) 4.1 g/dL 3.5-5.0 BILIRUBIN TOTAL (BEAKER) (test fewa=006) 13.9 mg/dL 0.2-1.2 BILIRUBIN DIRECT (BEAKER) (test mbef=257) 8.9 mg/dL 0.1-0.5 ALKALINE PHOSPHATASE (BEAKER) (test wevc=531) 337 U/L 40-150 AST (SGOT) (BEAKER) (test hfnm=198) 135 U/L 5-34 ALT (SGPT) (BEAKER) (test zesq=411) 556 U/L 6-55 Specimen markedly [id number] 21:28:00 Test Item Value Reference Range Comments LIPASE (BEAKER) (test azid=629) 19 U/L 8-78 Specimen markedly ictericCBC W/PLT COUNT & AUTO [id number] 20:58 :00 Test Item Value Reference Range Comments WHITE BLOOD CELL COUNT (BEAKER) (test nslx=674) 6.3 K/ L 3.5-10.5 RED BLOOD CELL COUNT (BEAKER) (test jfjx=044) 4.18 M/ L 4.63-6.08 HEMOGLOBIN (BEAKER) (test hcak=611) 13.0 GM/DL 13.7-17.5 HEMATOCRIT (BEAKER) (test jskq=493) 38.6 % 40.1-51.0 MEAN CORPUSCULAR VOLUME (BEAKER) (test qpyg=751) 92.3 fL 79.0-92.2 MEAN CORPUSCULAR HEMOGLOBIN (BEAKER) (test 31.1 pg 25.7-32.2 zylu=789) MEAN CORPUSCULAR HEMOGLOBIN CONC (BEAKER) (test 33.7 GM/DL 32.3-36.5 nxlo=168) RED CELL DISTRIBUTION WIDTH (BEAKER) (test 13.3 % 11.6-14.4 tjyi=138) PLATELET COUNT (BEAKER) (test okpm=505) 296 K/CU MM 150-450 MEAN PLATELET VOLUME (BEAKER) (test dfqp=904) 11.4 fL 9.4-12.4 NUCLEATED RED BLOOD CELLS (BEAKER) (test 0 /100 WBC 0-0 stmq=588) NEUTROPHILS RELATIVE PERCENT (BEAKER) (test 78 % qhej=178) LYMPHOCYTES RELATIVE PERCENT (BEAKER) (test 11 % klcg=742) MONOCYTES RELATIVE PERCENT (BEAKER) (test 9 % mchl=492) EOSINOPHILS RELATIVE PERCENT (BEAKER) (test 1 % zyml=286) BASOPHILS RELATIVE PERCENT (BEAKER) (test 0 % hnqg=802) NEUTROPHILS ABSOLUTE COUNT (BEAKER) (test 4.92 K/ L 1.78-5.38 xilh=548) LYMPHOCYTES ABSOLUTE COUNT (BEAKER) (test 0.72 K/ L 1.32-3.57 yxvg=968) MONOCYTES ABSOLUTE COUNT (BEAKER) (test 0.59 K/ L 0.30-0.82 plbl=499) EOSINOPHILS ABSOLUTE COUNT (BEAKER) (test 0.03 K/ L 0.04-0.54 inwu=012) BASOPHILS ABSOLUTE COUNT (BEAKER) (test 0.02 K/ L 0.01-0.08 mmgx=705) IMMATURE GRANULOCYTES-RELATIVE PERCENT (BEAKER) 0 % 0-1 (test zgmq=9051)
[2018-10-26] MEDS ORDERED: ONDANSETRON 4 MG/2 ML VIAL ONE (00:49)
[2018-10-26] MEDS ORDERED: NA CHLORIDE 0.9% 1,000 ML ONE ×2 (00:49→04:02)
[2018-10-26 01:24] LABS: Urine Blood NEGATIVE (NEG); Urine Glucose NEGATIVE (NEG); Urine Protein NEGATIVE (NEG)
[2018-10-26 01:29] LABS: Absolute Lymphocytes (CBC) 0.4 K/uL (0.7-4.9); Absolute Monocytes 0.9 K/uL (0.1-1.3); Absolute Neutrophil 23.7 K/uL (1.8-8.0); Basophils % 0.9 % (0-1.3); Hematocrit 35.4 % (39.6-49.0); Lymphocytes % 1.8 % (15.3-44.8); MPV 7.7 fL (7.6-11.3); Monocytes % 3.6 % (3.3-12.3); RBC Red Blood Cell Count 3.87 M/uL (4.33-5.43)
[2018-10-26 01:32] LABS: Urine Bacteria <20 /HPF (NONE SEEN); Urine Culture Reflex Order NOT NEEDED; Urine RBC <5 /HPF (NONE SEEN)
[2018-10-26 01:38] LABS: Albumin 3.4 g/dL (3.4-5.0); Bilirubin Direct 0.8 mg/dL (0-0.2); Bilirubin Total 1.6 mg/dL (0.2-1.0); Potassium 3.4 mmol/L (3.5-5.1)
[2018-10-26 01:41] LABS: Platelet Estimate ADEQ
[2018-10-26 01:42] LABS: Blood Morphology Comment NOT SEEN (NOT SEEN)
--- NOTE | 2018-10-26 03:36 | ER ---
Nurse's Notes [facility] Name: Mario Santos Age: 68 yrs Sex: Male : 1950 Arrival Date: 10/26/2018 Time: 00:04 Bed 6 Private MD: Quinn Potts T Diagnosis: Upper abdominal pain, unspecified;Abnormal findings on diagnostic imaging of liver and biliary tract Presentation: 10/26 00:18 Presenting complaint: Patient states: i have pancreatic CA and on chemotherapy. i had mg2 chemo session was October 19, 2018. tonight after eating dinner, had some chocolate ice cream i started to vomit and my stomach hurts. i took reglan pills but to no avail. Transition of care: patient was not received from another setting of care. Onset of symptoms was October 25, 2018 at 19:00. Risk Assessment: Do you want to hurt yourself or someone else? Patient reports no desire to harm self or others. Initial Sepsis Screen: Does the patient meet any 2 criteria? No. Patient's initial sepsis screen is negative. Does the patient have a suspected source of infection? No. Patient's initial sepsis screen is negative. Care prior to arrival: None. 00:18 Method Of Arrival: Ambulatory mg2 00:18 Acuity: AJ 3 mg2 Triage Assessment: 03:30 General: Appears in no apparent distress. comfortable. GI: Reports vomiting. cc3 Historical: - Allergies: 00:25 lactose; mg2 - Home Meds: 00:25 Letitia 180 mg Oral tab [Active]; aspirin 81 mg Oral TbEC [Active]; atorvastatin 10 mg mg2 Oral tab [Active]; hydrochlorothiazide 25 mg Oral tab [Active]; levothyroxine 100 mcg tab [Active]; valsartan 160 mg Oral tab [Active]; - PMHx: 00:25 Hyperlipidemia; Hypertension; Hypothyroidism; mg2 - PSHx: 00:25 Cholecystectomy; wrist surgery; mg2 - Immunization history:: Flu vaccine is up to date. - Social history:: Smoking status: Patient/guardian denies using tobacco, Patient/guardian denies using alcohol, street drugs, IV drugs. - Ebola Screening: : No symptoms or risks identified at this time. Screenin:44 Abuse screen: Denies threats or abuse. Denies injuries from another. Nutritional rr5 screening: No deficits noted. Tuberculosis screening: No symptoms or risk factors identified. Fall Risk IV access (20 points). Total Lopez Fall Scale indicates No Risk (0-24 pts). Assessment: 01:34 General: Appears uncomfortable, Behavior is calm, cooperative, appropriate for age. ea Pain: Denies pain. Neuro: Level of Consciousness is awake, alert, obeys commands, Oriented to person, place, time, situation. Cardiovascular: Patient's skin is warm and dry. Respiratory: Airway is patent Respiratory effort is even, unlabored, Respiratory pattern is regular, symmetrical. GI: Abdomen is non-distended. Derm: Skin is dry, Skin is pale, Skin temperature is warm. Musculoskeletal: Circulation, motion, and sensation intact. 01:40 Reassessment: laboratory staff jack called relayed WBC 25.3. ED provider aware. rr5 02:00 Reassessment: Patient appears in no apparent distress at this time. Patient and/or rr5 family updated on plan of care and expected duration. Pain level reassessed. Patient is alert, oriented x 3, equal unlabored respirations, skin warm/dry/pink. reassess by ED provider, explained the plan of care. 03:00 Reassessment: Patient appears in no apparent distress at this time. No changes from rr5 previously documented assessment. awaiting for accepting facility for transfer. asleep on bed comfortably. 04:05 Reassessment: Patient appears in no apparent distress at this time. Patient and/or cc3 family updated on plan of care and expected duration. Pain level reassessed. Patient is alert, oriented x 3, equal unlabored respirations, skin warm/dry/pink. Patient for transfer to [facility], report called and handed over to RN Maria T Mercado for continuity of care. 04:30 Reassessment: Patient appears in no apparent distress at this time. Patient and/or cc3 family updated on plan of care and expected duration. Pain level reassessed. Patient is alert, oriented x 3, equal unlabored respirations, skin warm/dry/pink. [facility] came for patient transport. Patient left ER vitally stable by EMS stretcher. Patient denies pain at this time. Patient states feeling better. Vital Signs: 00:21 BP 108 / 71; Pulse 73; Resp 18; Temp 98.1; Pulse Ox 100% on R/A; Weight 63.5 kg; Height mg2 6 ft. 0 in. (182.88 cm); Pain 3/10; 01:45 BP 163 / 65; Pulse 89; Resp 19; Pulse Ox 97% ; rr5 03:00 BP 150 / 96; Pulse 97; Resp 16; Pulse Ox 97% on R/A; rr5 00:21 Body Mass Index 18.99 (63.50 kg, 182.88 cm) mg2 ED Course: 00:04 Patient arrived in ED. es 00:06 Quinn Potts MD is Private Physician. es 00:10 Emanuel Johnson, MELLISA is Primary Nurse. mg2 00:13 Gustabo Becker MD is Attending Physician. gs 00:21 Triage completed. mg2 00:25 Arm band placed on. mg2 01:09 CT Stone Protocol In Process Unspecified. EDMS 01:15 Initial lab(s) drawn, by me, sent to lab. Inserted saline lock: 20 gauge in right rr5 forearm, using aseptic technique. Blood collected. 03:30 Patient has correct armband on for positive identification. Placed in gown. Bed in low cc3 position. Call light in reach. Side rails up X2. quality assurance monitor body on. Pulse ox on. NIBP on. 04:05 No provider procedures requiring assistance completed. Patient transferred, IV remains cc3 in place. Administered Medications: 01:15 Drug: NS 0.9% 1000 ml Route: IV; Rate: 1 bolus; Site: right forearm; rr5 01:18 Drug: Zofran 4 mg Route: IVP; Site: right antecubital; ea 03:30 Follow up: Response: No adverse reaction; Nausea is decreased cc3 03:50 Drug: NS 0.9% 1000 ml Route: IV; Rate: 125 ml/hr; Site: right forearm; cc3 04:30 Follow up: Response: No adverse reaction; IV Status: Infusion continued upon transfer; cc3 IV Intake: 125ml 03:55 Drug: cefOXitin 1 grams Route: IVPB; Infused Over: 30 mins; Site: right forearm; cc3 04:05 Follow up: Response: No adverse reaction; IV Status: Completed infusion; IV Intake: [id number] Intake: 04:05 IV: 10ml; Total: 10ml. cc3 04:30 IV: 125ml; Total: 135ml. cc3 Outcome: 03:34 ER care complete, transfer ordered by . 04:30 Transferred by ground EMS to [facility], [facility], Transfer form completed. cc3 04:30 Condition: stable 04:30 Instructed on the need for transfer, Demonstrated understanding of instructions. 04:49 Patient left the ED. cc3 Signatures: Dispatcher [employer] Naomi Luna Elena RN RN Gustabo Silva MD MD gs Gardose, Michele, RN RN mg2 Cordel, Charlene cc3 Desean Hdz RN RN rr5
--- NOTE | 2018-10-26 03:36 | EDPHYS ---
Physician Documentation [facility] Name: Mario Santos Age: 68 yrs Sex: Male : 1950 Arrival Date: 10/26/2018 Time: 00:04 Bed 6 Private MD: Quinn Potts T ED Physician Gustabo Becker HPI: 10/26 03:23 This 68 yrs old Male presents to ER via Ambulatory with complaints of gs Vomiting. 03:23 The patient presents to the emergency department with nausea, vomiting, abdominal pain. gs 03:27 Onset: The symptoms/episode began/occurred acutely, just prior to arrival. Possible gs causes: unknown. The symptoms are aggravated by nothing. The symptoms are alleviated by nothing. Associated signs and symptoms: Pertinent negatives: dysuria, fever, GI bleeding. Severity of symptoms: At their worst the symptoms were severe in the emergency department the symptoms are unchanged. The patient has not experienced similar symptoms in the past. treated for pancreatic cancer last chemo 1 month ago, biliary stent 07/20. Historical: - Allergies: 00:25 lactose; mg2 - Home Meds: 00:25 Letitia 180 mg Oral tab [Active]; aspirin 81 mg Oral TbEC [Active]; atorvastatin 10 mg mg2 Oral tab [Active]; hydrochlorothiazide 25 mg Oral tab [Active]; levothyroxine 100 mcg tab [Active]; valsartan 160 mg Oral tab [Active]; - PMHx: 00:25 Hyperlipidemia; Hypertension; Hypothyroidism; mg2 - PSHx: 00:25 Cholecystectomy; wrist surgery; mg2 - Immunization history:: Flu vaccine is up to date. - Social history:: Smoking status: Patient/guardian denies using tobacco, Patient/guardian denies using alcohol, street drugs, IV drugs. - Ebola Screening: : No symptoms or risks identified at this time. ROS: 03:27 All other systems are negative. gs Exam: 03:27 Head/Face: Normocephalic, atraumatic. Eyes: Pupils equal round and reactive to light, gs extra-ocular motions intact. Lids and lashes normal. Conjunctiva and sclera are non-icteric and not injected. Cornea within normal limits. Periorbital areas with no swelling, redness, or edema. ENT: Nares patent. No nasal discharge, no septal abnormalities noted. Tympanic membranes are normal and external auditory canals are clear. Oropharynx with no redness, swelling, or masses, exudates, or evidence of obstruction, uvula midline. Mucous membranes moist. Neck: Trachea midline, no thyromegaly or masses palpated, and no cervical lymphadenopathy. Supple, full range of motion without nuchal rigidity, or vertebral point tenderness. No Meningismus. Chest/axilla: Normal chest wall appearance and motion. Nontender with no deformity. No lesions are appreciated. Cardiovascular: Regular rate and rhythm with a normal S1 and S2. No gallops, murmurs, or rubs. Normal PMI, no JVD. No pulse deficits. Respiratory: Lungs have equal breath sounds bilaterally, clear to auscultation and percussion. No rales, rhonchi or wheezes noted. No increased work of breathing, no retractions or nasal flaring. Abdomen/GI: Soft, non-tender, with normal bowel sounds. No distension or tympany. No guarding or rebound. No evidence of tenderness throughout. Back: No spinal tenderness. No costovertebral tenderness. Full range of motion. Skin: Warm, dry with normal turgor. Normal color with no rashes, no lesions, and no evidence of cellulitis. MS/ Extremity: Pulses equal, no cyanosis. Neurovascular intact. Full, normal range of motion. Neuro: Awake and alert, GCS 15, oriented to person, place, time, and situation. Cranial nerves II-XII grossly intact. Motor strength 5/5 in all extremities. Sensory grossly intact. Cerebellar exam normal. Normal gait. 03:27 Constitutional: The patient appears alert, awake, uncomfortable. Vital Signs: 00:21 BP 108 / 71; Pulse 73; Resp 18; Temp 98.1; Pulse Ox 100% on R/A; Weight 63.5 kg; Height mg2 6 ft. 0 in. (182.88 cm); Pain 3/10; 01:45 BP 163 / 65; Pulse 89; Resp 19; Pulse Ox 97% ; rr5 03:00 BP 150 / 96; Pulse 97; Resp 16; Pulse Ox 97% on R/A; rr5 00:21 Body Mass Index 18.99 (63.50 kg, 182.88 cm) mg2 MDM: 00:26 Patient medically screened. 03:27 Differential diagnosis: gastritis, cholecystitis, pancreatitis, gastroenteritis. Data gs reviewed: vital signs, nurses notes, lab test result(s), radiologic studies. Response to treatment: the patient's symptoms have mildly improved after treatment. ED course: possible malfunction biliary stent will send to [facility] for eval dr paula will see at [facility]. 10/26 00:27 Order name: Basic Metabolic Panel; Complete Time: 01:39 10/26 00:27 Order name: CBC with Diff; Complete Time: 01:47 10/26 00:27 Order name: Hepatic Function; Complete Time: :39 10/26 00:27 Order name: Lipase; Complete Time: 01:39 10/26 00:27 Order name: Urine Microscopic Only; Complete Time: :39 10/26 01:14 Order name: Urine Dipstick--Ancillary (enter results); Complete Time: :39 mw2 10/26 00:27 Order name: IV Saline Lock; Complete Time: 01:19 10/26 00:27 Order name: Labs collected and sent; Complete Time: 01:19 10/26 00:27 Order name: CT Stone Protocol 10/26 01:43 Order name: Manual Differential; Complete Time: 01:47 EDMS 10/26 00:27 Order name: Urine Dipstick-Ancillary (obtain specimen); Complete Time: 01:20 gs Administered Medications: 01:15 Drug: NS 0.9% 1000 ml Route: IV; Rate: 1 bolus; Site: right forearm; rr5 01:18 Drug: Zofran 4 mg Route: IVP; Site: right antecubital; ea 03:30 Follow up: Response: No adverse reaction; Nausea is decreased cc3 03:50 Drug: NS 0.9% 1000 ml Route: IV; Rate: 125 ml/hr; Site: right forearm; cc3 04:30 Follow up: Response: No adverse reaction; IV Status: Infusion continued upon transfer; cc3 IV Intake: 125ml 03:55 Drug: cefOXitin 1 grams Route: IVPB; Infused Over: 30 mins; Site: right forearm; cc3 04:05 Follow up: Response: No adverse reaction; IV Status: Completed infusion; IV Intake: [id number] Disposition: 10/26/18 03:[address] [facility]. Diagnosis are Upper abdominal pain, unspecified, Abnormal findings on diagnostic imaging of liver and biliary tract. - Reason for transfer: Higher level of care. - Accepting physician is timmy. - Condition is Stable. - Problem is new. - Symptoms have improved. Signatures: Dispatcher [employer] Aleyda Sánchez, RN Gustabo Grier ea, MD MD gs Gardose, Michele, RN RN [facility] Meghan Chavez cc3 Desean Hdz RN RN rr5 Corrections: (The following items were deleted from the chart) 04:49 03:34 10/26/2018 03:[address] [facility]. Diagnosis is cc3 Upper abdominal pain, unspecified; Abnormal findings on diagnostic imaging of liver and biliary tract. Reason for transfer: Higher level of care. Accepting physician is timmy. Condition is Stable. Problem is new. Symptoms have improved. gs
[2018-10-26] MEDS ORDERED: CEFOXITIN/SWI 1gm 1 GM/10 ML SYR ONE (04:01)
--- NOTE | 2018-10-26 10:07 | RAD REPORT ---
EXAM DESCRIPTION: CT - Stone Protocol - 10/26/2018 1:06 am ADDENDUM #1 ADDENDUM: THIS REPORT CONTAINS FINDINGS THAT MAY BE CRITICAL TO PATIENT'S CARE: The findings were verbally discussed via telephone conference with Gustabo Becker by Dr. Licea on 1:34 AM CDT. The results were acknowledged and understood. Electronically signed by: Sarbjit Licea DO 10/26/2018 1:34 AM CDT End of Addendum EXAM DESCRIPTION: CT Abdomen and Pelvis Without Intravenous Contrast CLINICAL HISTORY: The patient is 68 years old and is Male; ABD PAIN TECHNIQUE: Axial computed tomography images of the abdomen and pelvis without intravenous contrast. Sagittal and coronal reformatted images were created and reviewed. This CT exam was performed usi ng one or more of the following dose reduction techniques: automated exposure control, adjustment o f the mA and/or kV according to patient size, and/or use of iterative reconstruction technique. COMPARISON: CT abdomen and pelvis with IV contrast dated July 14, 2018. FINDINGS: LUNG BASES: Unremarkable. No mass. No consolidation. ABDOMEN: LIVER: Periportal edema is also present. GALLBLADDER AND BILE DUCTS: Interval placement of biliary stent with advanced biliary ductal dilat ation and pneumobilia the stents appears to extend from the mid CBD into the duodenum. There is a Prior cholecystectomy. PANCREAS: Unremarkable. No ductal dilation. SPLEEN: Unremarkable. No splenomegaly. ADRENALS: Unremarkable. No mass. KIDNEYS AND URETERS: Unremarkable. No obstructing stones. No hydronephrosis. STOMACH AND BOWEL: Colonic diverticulosis without CT evidence of acute diverticulitis. Mild to moderate stool burden. No obstruction. PELVIS: APPENDIX: No findings to suggest acute appendicitis. BLADDER: The bladder is decompressed. No stones. REPRODUCTIVE: Unremarkable as visualized. ABDOMEN and PELVIS: INTRAPERITONEAL SPACE: Unremarkable. No free air. No significant fluid collection. BONES/JOINTS: Advanced bilateral hip osteoarthritis. No acute fracture. No dislocation. SOFT TISSUES: Unremarkable. VASCULATURE: Unremarkable. No abdominal aortic aneurysm. LYMPH NODES: Unremarkable. No enlarged lymph nodes. IMPRESSION: 1. Interval placement of biliary stent with advanced biliary ductal dilatation, pneumo bilia and periportal edema. Correlate with appropriate stent placement. 2. Moderate stool burden. Cortical constipation. 3. Mild colonic diverticulosis without CT evidence of acute diverticulitis. 4. Advanced bilateral hip osteoarthritis. Electronically signed by: Sarbjit Licea DO 10/26/2018 1:29 AM CDT Due to temporary technical issues with the PACS/Fluency reporting system, reports are being signed by the in house radiologist as a courtesy to ensure prompt reporting. The interpreting radiologist is f ully responsible for the content of the report.
== END 2018-10-26 04:49 | disposition short-term general hospital (02) ==
LOC: ER 00:03
DX: R10.10 Upper abdominal pain, unspecified (principal); R93.2 Abnormal findings on diagnostic imaging of liver and biliary tract; R11.2 Nausea with vomiting, unspecified; E78.5 Hyperlipidemia, unspecified; E03.9 Hypothyroidism, unspecified; I10 Essential (primary) hypertension
CPT/HCPCS: 85025; 80048; 36415; 80076; 83690; 76377; 74176; 99285; J7030 ×2; J2405; 81003; 81015

== ENCOUNTER 2019-06-23 17:33 | Emergency (ER) | payer OTHER, BC ==
--- OUTSIDE RECORDS SUMMARY | 2019-06-23 17:40 | XMS REPORT ---
:1950 [facility] [address] [place] [address] Care Team Providers Name Role Phone VIRAL MEDINA Unavailable Unavailable REG SALVADOR Unavailable Unavailable MARGARITA MOFFETT Unavailable Unavailable JAZMIN REYES Unavailable Unavailable KETTY BUCHANAN Unavailable Unavailable VIRAL PENA Unavailable Unavailable JESSICA WELLER Unavailable Unavailable GALEN, FANY CIARA Unavailable Unavailable Problems This patient has no known problems. Allergies, Adverse Reactions, Alerts This patient has no known allergies or adverse reactions. Medications This patient has no known medications. Results Test Description Test Time Test Comments Text Results Atomic Results Result Comments CBC W/PLT COUNT & AUTO DIFFERENTIAL 2019-06-15 07:17:00 Test Item Value Reference Range Comments WHITE BLOOD CELL COUNT (BEAKER) (test jfuf=138) 7.2 K/ L 3.5-10.5 RED BLOOD CELL COUNT (BEAKER) (test jwen=208) 3.89 M/ L 4.63-6.08 HEMOGLOBIN (BEAKER) (test ozzv=864) 12.3 GM/DL 13.7-17.5 HEMATOCRIT (BEAKER) (test pqfh=556) 37.5 % 40.1-51.0 MEAN CORPUSCULAR VOLUME (BEAKER) (test slge=109) 96.4 fL 79.0-92.2 MEAN CORPUSCULAR HEMOGLOBIN (BEAKER) (test ckqt=663) 31.6 pg 25.7-32.2 MEAN CORPUSCULAR HEMOGLOBIN CONC (BEAKER) (test wjjh=808) 32.8 GM/DL 32.3- 36.5 RED CELL DISTRIBUTION WIDTH (BEAKER) (test wxkd=006) 16.4 % 11.6-14.4 PLATELET COUNT (BEAKER) (test fpzf=973) 318 K/CU MM 150-450 MEAN PLATELET VOLUME (BEAKER) (test qxax=655) 8.9 fL 9.4-12.4 NUCLEATED RED BLOOD CELLS (BEAKER) (test akik=093) 0 /100 WBC 0-0 NEUTROPHILS RELATIVE PERCENT (BEAKER) (test tqqs=100) 81 % LYMPHOCYTES RELATIVE PERCENT (BEAKER) (test gcwg=926) 13 % MONOCYTES RELATIVE PERCENT (BEAKER) (test ybfn=852) 6 % EOSINOPHILS RELATIVE PERCENT (BEAKER) (test cwxx=188) 0 % BASOPHILS RELATIVE PERCENT (BEAKER) (test ajyp=242) 0 % NEUTROPHILS ABSOLUTE COUNT (BEAKER) (test vhbp=212) 5.79 K/ L 1.78-5.38 LYMPHOCYTES ABSOLUTE COUNT (BEAKER) (test puou=405) 0.94 K/ L 1.32-3.57 MONOCYTES ABSOLUTE COUNT (BEAKER) (test lvzq=258) 0.40 K/ L 0.30-0.82 EOSINOPHILS ABSOLUTE COUNT (BEAKER) (test kkqs=685) 0.01 K/ L 0.04-0.54 BASOPHILS ABSOLUTE COUNT (BEAKER) (test sirg=941) 0.01 K/ L 0.01-0.08 IMMATURE GRANULOCYTES-RELATIVE PERCENT (BEAKER) (test 0 % 0-1 hdbv=5502) [id number] 07:09:00 Test Item Value Reference Range Comments PARTIAL THROMBOPLASTIN TIME (BEAKER) (test 29.8 seconds 22.5-36.0 xtnc=984) PROTHROMBIN TIME/[id number] 07:08:00 Test Item Value Reference Range Comments PROTIME (BEAKER) (test ziqz=429) 16.0 seconds 11.9-14.2 INR (BEAKER) (test pofw=784) 1.3 <=5.9 Effective 10/27/2018: PT Reference Range ChangeNew: 11.9-14.2 Previous: 11.7- 14.7RECOMMENDED COUMADIN/WARFARIN INR THERAPY RANGESSTANDARD DOSE: 2.0-3.0 Includes: PROPHYLAXIS for venous thrombosis, systemic embolization; TREATMENT for venous thrombosis and/or pulmonary embolus.HIGH RISK: Target INR is2.5-3.5 for patients wiht mechanical heart valves.FUNGUS CULTURE + [id number] 11: 37:00 Test Item Value Reference Range Comments CULTURE (BEAKER) (test orsl=3344) 3+ [place] glabrata FUNGUS SMEAR (BEAKER) (test No fungi seen ggzp=3063) BODY FLUID CULTURE + GRAM [id number] 13:48:00 Test Item Value Reference Range Comments CULTURE (BEAKER) (test [place] GLABRATA 2+ [place] teyo=1994) glabrata 5-Flurocytosine (test Susceptible 0-4 , pjxw=572) Intermediate <0 or >4 , Resistant >16 Amphotericin B (test Susceptible >0-0 , No ryht=618) Interpretations Established <=0 or >0 Caspofungin acetate Susceptible 0-0.12 , Non (test jdan=556) Fluconazole (test Susceptible 0-0 , Dose pibo=082) Dependent Susceptible <0 or >0 , Resi Itraconazole (test Susceptible 0-0.125 , zvgj=963) Dose Dependent Susceptible <0 or >.125 Micafungin (test Susceptible 0-0.06 , Non xqjs=624) Posaconazole (test Susceptible >0-0 , No drvd=951) Interpretations Established <=0 or >0 Voriconazole (test ikxa=430) CULTURE (BEAKER) (test [place] ALBICANS <1+ [place] eeqr=7382) albicans 5-Flurocytosine (test Susceptible 0-4 , dpzr=458) Intermediate <0 or >4 , Resistant >16 Amphotericin B (test Susceptible >0-0 , No trwv=6164) Interpretations Established <=0 or >0 Caspofungin acetate Susceptible 0-0.25 , Non (test itzj=503) Fluconazole (test Susceptible 0-2 , Dose fhox=670) Dependent Susceptible <0 or >2 , Resi Itraconazole (test Susceptible 0-0.125 , gtos=835) Dose Dependent Susceptible <0 or >.125 Micafungin (test Susceptible 0-0.25 , Non gxsp=570) Posaconazole (test Susceptible >0-0 , No jqnd=8260) Interpretations Established <=0 or >0 Voriconazole (test Susceptible 0-0.12 , Dose jvlo=212) Dependent Susceptible <0 or >.12 , GRAM STAIN RESULT 3+ White blood (BEAKER) (test cells seen rmab=7937) GRAM STAIN RESULT No organisms seen (BEAKER) (test blik=[id number]) BASIC METABOLIC [id number] 07:09:00 Test Item Value Reference Range Comments SODIUM (BEAKER) (test 135 meq/L 136-145 bxsz=893) POTASSIUM (BEAKER) (test 3.8 meq/L 3.5-5.1 Specimen slightly fxjn=609) hemolyzed CHLORIDE (BEAKER) (test 103 meq/L 98-107 uwvz=388) CO2 (BEAKER) (test 27 meq/L 22-29 znja=744) BLOOD UREA NITROGEN 9 mg/dL 7-21 (BEAKER) (test hoht=024) CREATININE (BEAKER) (test 0.74 mg/dL 0.57-1.25 Specimen slightly ocxo=117) hemolyzed GLUCOSE RANDOM (BEAKER) 114 mg/dL 70-105 (test xgny=142) CALCIUM (BEAKER) (test 8.7 mg/dL 8.4-10.2 wuwl=593) EGFR (BEAKER) (test 106 mL/min/1.73 sq m ESTIMATED GFR IS NOT sdlb=9254) ACCURATE CREATININE CLEARANCE IN PREDICTING GLOMERULAR FILTRATION RATE. ESTIMATED GFR IS NOT APPLICABLE FOR DIALYSIS PATIENTS. CBC W/PLT COUNT & AUTO [id number] 06:35:00 Test Item Value Reference Range Comments WHITE BLOOD CELL COUNT (BEAKER) (test kxyt=230) 4.7 K/ L 3.5-10.5 RED BLOOD CELL COUNT (BEAKER) (test ovtv=147) 3.04 M/ L 4.63-6.08 HEMOGLOBIN (BEAKER) (test zzci=815) 9.6 GM/DL 13.7-17.5 HEMATOCRIT (BEAKER) (test avcj=131) 29.0 % 40.1-51.0 MEAN CORPUSCULAR VOLUME (BEAKER) (test ctgs=113) 95.4 fL 79.0-92.2 MEAN CORPUSCULAR HEMOGLOBIN (BEAKER) (test 31.6 pg 25.7-32.2 ycix=832) MEAN CORPUSCULAR HEMOGLOBIN CONC (BEAKER) (test 33.1 GM/DL 32.3-36.5 jjbb=759) RED CELL DISTRIBUTION WIDTH (BEAKER) (test 15.0 % 11.6-14.4 slcz=091) PLATELET COUNT (BEAKER) (test mgya=820) 234 K/CU MM 150-450 MEAN PLATELET VOLUME (BEAKER) (test fjzo=547) 9.6 fL 9.4-12.4 NUCLEATED RED BLOOD CELLS (BEAKER) (test 0 /100 WBC 0-0 adpn=866) NEUTROPHILS RELATIVE PERCENT (BEAKER) (test 67 % auxx=074) LYMPHOCYTES RELATIVE PERCENT (BEAKER) (test 25 % qncc=480) MONOCYTES RELATIVE PERCENT (BEAKER) (test 6 % hgye=604) EOSINOPHILS RELATIVE PERCENT (BEAKER) (test 1 % zyin=105) BASOPHILS RELATIVE PERCENT (BEAKER) (test 1 % nkkv=899) NEUTROPHILS ABSOLUTE COUNT (BEAKER) (test 3.16 K/ L 1.78-5.38 idpv=727) LYMPHOCYTES ABSOLUTE COUNT (BEAKER) (test 1.18 K/ L 1.32-3.57 zpyi=106) MONOCYTES ABSOLUTE COUNT (BEAKER) (test 0.26 K/ L 0.30-0.82 gumt=617) EOSINOPHILS ABSOLUTE COUNT (BEAKER) (test 0.06 K/ L 0.04-0.54 enwz=534) BASOPHILS ABSOLUTE COUNT (BEAKER) (test 0.03 K/ L 0.01-0.08 fqaa=461) IMMATURE GRANULOCYTES-RELATIVE PERCENT (BEAKER) 0 % 0-1 (test bacl=2830) BASIC METABOLIC [id number] 07:10:00 Test Item Value Reference Range Comments SODIUM (BEAKER) (test 134 meq/L 136-145 cflu=584) POTASSIUM (BEAKER) (test 3.7 meq/L 3.5-5.1 ehvt=020) CHLORIDE (BEAKER) (test 102 meq/L 98-107 owju=226) CO2 (BEAKER) (test 28 meq/L 22-29 mity=913) BLOOD UREA NITROGEN 8 mg/dL 7-21 (BEAKER) (test ommn=392) CREATININE (BEAKER) (test 0.75 mg/dL 0.57-1.25 myjp=944) GLUCOSE RANDOM (BEAKER) 92 mg/dL 70-105 (test cyja=545) CALCIUM (BEAKER) (test 9.0 mg/dL 8.4-10.2 pxmq=110) EGFR (BEAKER) (test 104 mL/min/1.73 sq m ESTIMATED GFR IS NOT rehc=8063) ACCURATE CREATININE CLEARANCE IN PREDICTING GLOMERULAR FILTRATION RATE. ESTIMATED GFR IS NOT APPLICABLE FOR DIALYSIS PATIENTS. CBC W/PLT COUNT & AUTO [id number] 06:51:00 Test Item Value Reference Range Comments WHITE BLOOD CELL COUNT (BEAKER) (test addz=834) 4.8 K/ L 3.5-10.5 RED BLOOD CELL COUNT (BEAKER) (test mjyg=586) 3.09 M/ L 4.63-6.08 HEMOGLOBIN (BEAKER) (test ibsm=348) 9.6 GM/DL 13.7-17.5 HEMATOCRIT (BEAKER) (test vjae=279) 30.0 % 40.1-51.0 MEAN CORPUSCULAR VOLUME (BEAKER) (test ynnp=404) 97.1 fL 79.0-92.2 MEAN CORPUSCULAR HEMOGLOBIN (BEAKER) (test 31.1 pg 25.7-32.2 jshp=229) MEAN CORPUSCULAR HEMOGLOBIN CONC (BEAKER) (test 32.0 GM/DL 32.3-36.5 yapv=245) RED CELL DISTRIBUTION WIDTH (BEAKER) (test 15.1 % 11.6-14.4 sugl=657) PLATELET COUNT (BEAKER) (test sicm=541) 264 K/CU MM 150-450 MEAN PLATELET VOLUME (BEAKER) (test wpwf=426) 9.9 fL 9.4-12.4 NUCLEATED RED BLOOD CELLS (BEAKER) (test 0 /100 WBC 0-0 gzfl=239) NEUTROPHILS RELATIVE PERCENT (BEAKER) (test 64 % yypm=077) LYMPHOCYTES RELATIVE PERCENT (BEAKER) (test 30 % lxnc=866) MONOCYTES RELATIVE PERCENT (BEAKER) (test 4 % nnjj=560) EOSINOPHILS RELATIVE PERCENT (BEAKER) (test 2 % jupi=579) BASOPHILS RELATIVE PERCENT (BEAKER) (test 0 % rwdd=376) NEUTROPHILS ABSOLUTE COUNT (BEAKER) (test 3.09 K/ L 1.78-5.38 wqpo=533) LYMPHOCYTES ABSOLUTE COUNT (BEAKER) (test 1.45 K/ L 1.32-3.57 fllr=045) MONOCYTES ABSOLUTE COUNT (BEAKER) (test 0.19 K/ L 0.30-0.82 jflm=052) EOSINOPHILS ABSOLUTE COUNT (BEAKER) (test 0.08 K/ L 0.04-0.54 azfh=848) BASOPHILS ABSOLUTE COUNT (BEAKER) (test 0.01 K/ L 0.01-0.08 pnop=210) IMMATURE GRANULOCYTES-RELATIVE PERCENT (BEAKER) 0 % 0-1 (test xgci=0950) CBC W/PLT COUNT & AUTO [id number] 06:34:00 Test Item Value Reference Range Comments WHITE BLOOD CELL COUNT (BEAKER) (test omdo=089) 5.1 K/ L 3.5-10.5 RED BLOOD CELL COUNT (BEAKER) (test msqr=662) 3.12 M/ L 4.63-6.08 HEMOGLOBIN (BEAKER) (test xxeq=133) 9.7 GM/DL 13.7-17.5 HEMATOCRIT (BEAKER) (test lgux=194) 30.2 % 40.1-51.0 MEAN CORPUSCULAR VOLUME (BEAKER) (test tsde=057) 96.8 fL 79.0-92.2 MEAN CORPUSCULAR HEMOGLOBIN (BEAKER) (test 31.1 pg 25.7-32.2 lbdr=094) MEAN CORPUSCULAR HEMOGLOBIN CONC (BEAKER) (test 32.1 GM/DL 32.3-36.5 hbwg=064) RED CELL DISTRIBUTION WIDTH (BEAKER) (test 15.1 % 11.6-14.4 nify=880) PLATELET COUNT (BEAKER) (test nbuk=014) 259 K/CU MM 150-450 MEAN PLATELET VOLUME (BEAKER) (test znnd=783) 9.7 fL 9.4-12.4 NUCLEATED RED BLOOD CELLS (BEAKER) (test 0 /100 WBC 0-0 gfnx=590) NEUTROPHILS RELATIVE PERCENT (BEAKER) (test 75 % uhhh=298) LYMPHOCYTES RELATIVE PERCENT (BEAKER) (test 20 % gpet=395) MONOCYTES RELATIVE PERCENT (BEAKER) (test 2 % ezad=710) EOSINOPHILS RELATIVE PERCENT (BEAKER) (test 2 % htam=719) BASOPHILS RELATIVE PERCENT (BEAKER) (test 0 % aasl=184) NEUTROPHILS ABSOLUTE COUNT (BEAKER) (test 3.84 K/ L 1.78-5.38 blts=864) LYMPHOCYTES ABSOLUTE COUNT (BEAKER) (test 1.04 K/ L 1.32-3.57 utnp=302) MONOCYTES ABSOLUTE COUNT (BEAKER) (test 0.10 K/ L 0.30-0.82 gcyg=670) EOSINOPHILS ABSOLUTE COUNT (BEAKER) (test 0.09 K/ L 0.04-0.54 kxff=921) BASOPHILS ABSOLUTE COUNT (BEAKER) (test 0.02 K/ L 0.01-0.08 lqnz=762) IMMATURE GRANULOCYTES-RELATIVE PERCENT (BEAKER) 0 % 0-1 (test gego=0346) BASIC METABOLIC [id number] 06:30:00 Test Item Value Reference Range Comments SODIUM (BEAKER) (test 135 meq/L 136-145 hvew=399) POTASSIUM (BEAKER) (test 3.7 meq/L 3.5-5.1 tzyg=430) CHLORIDE (BEAKER) (test 104 meq/L 98-107 hokb=658) CO2 (BEAKER) (test 23 meq/L 22-29 takw=517) BLOOD UREA NITROGEN 6 mg/dL 7-21 (BEAKER) (test hwzc=174) CREATININE (BEAKER) (test 0.69 mg/dL 0.57-1.25 iktw=265) GLUCOSE RANDOM (BEAKER) 86 mg/dL 70-105 (test cikh=165) CALCIUM (BEAKER) (test 9.1 mg/dL 8.4-10.2 fiow=262) EGFR (BEAKER) (test 115 mL/min/1.73 sq m ESTIMATED GFR IS NOT plvl=7047) ACCURATE CREATININE CLEARANCE IN PREDICTING GLOMERULAR FILTRATION RATE. ESTIMATED GFR IS NOT APPLICABLE FOR DIALYSIS PATIENTS. [id number] 12:52:00 Test Item Value Reference Range Comments PARTIAL THROMBOPLASTIN TIME (BEAKER) (test 91.2 seconds 22.5-36.0 kpwk=746) BASIC METABOLIC [id number] 07:11:00 Test Item Value Reference Range Comments SODIUM (BEAKER) (test 136 meq/L 136-145 noly=490) POTASSIUM (BEAKER) (test 3.7 meq/L 3.5-5.1 gtdy=278) CHLORIDE (BEAKER) (test 105 meq/L 98-107 igfk=022) CO2 (BEAKER) (test 27 meq/L 22-29 rogh=751) BLOOD UREA NITROGEN 9 mg/dL 7-21 (BEAKER) (test yzsh=145) CREATININE (BEAKER) (test 0.70 mg/dL 0.57-1.25 kdkp=803) GLUCOSE RANDOM (BEAKER) 84 mg/dL 70-105 (test worb=842) CALCIUM (BEAKER) (test 8.7 mg/dL 8.4-10.2 miqd=612) EGFR (BEAKER) (test 113 mL/min/1.73 sq m ESTIMATED GFR IS NOT ksrt=2452) ACCURATE CREATININE CLEARANCE IN PREDICTING GLOMERULAR FILTRATION RATE. ESTIMATED GFR IS NOT APPLICABLE FOR DIALYSIS PATIENTS. PT/[id number] 06:27:00 Test Item Value Reference Range Comments PROTIME (BEAKER) (test tyzj=346) 14.2 seconds 11.9-14.2 INR (BEAKER) (test icbq=671) 1.2 <=5.9 PARTIAL THROMBOPLASTIN TIME (BEAKER) (test 84.0 seconds 22.5-36.0 cwje=421) Effective 10/27/2018: PT Reference Range ChangeNew: 11.9-14.2 Previous: 11.7- 14.7RECOMMENDED COUMADIN/WARFARIN INR THERAPY RANGESSTANDARD DOSE: 2.0-3.0 Includes: PROPHYLAXIS for venous thrombosis, systemic embolization; TREATMENT for venous thrombosis and/or pulmonary embolus.HIGH RISK: Target INR is2.5-3.5 for patients wiht mechanical heart valves.CBC W/PLT COUNT & AUTO [id number] 06:12:00 Test Item Value Reference Range Comments WHITE BLOOD CELL COUNT (BEAKER) (test noew=748) 5.1 K/ L 3.5-10.5 RED BLOOD CELL COUNT (BEAKER) (test xaum=485) 2.95 M/ L 4.63-6.08 HEMOGLOBIN (BEAKER) (test nzjv=410) 9.2 GM/DL 13.7-17.5 HEMATOCRIT (BEAKER) (test hfqj=858) 29.1 % 40.1-51.0 MEAN CORPUSCULAR VOLUME (BEAKER) (test lqiz=043) 98.6 fL 79.0-92.2 MEAN CORPUSCULAR HEMOGLOBIN (BEAKER) (test 31.2 pg 25.7-32.2 oquo=135) MEAN CORPUSCULAR HEMOGLOBIN CONC (BEAKER) (test 31.6 GM/DL 32.3-36.5 tiwv=542) RED CELL DISTRIBUTION WIDTH (BEAKER) (test 15.5 % 11.6-14.4 gmnf=100) PLATELET COUNT (BEAKER) (test iezv=290) 260 K/CU MM 150-450 MEAN PLATELET VOLUME (BEAKER) (test puxm=877) 9.6 fL 9.4-12.4 NUCLEATED RED BLOOD CELLS (BEAKER) (test 0 /100 WBC 0-0 gcwm=499) NEUTROPHILS RELATIVE PERCENT (BEAKER) (test 75 % sryn=942) LYMPHOCYTES RELATIVE PERCENT (BEAKER) (test 21 % amwx=615) MONOCYTES RELATIVE PERCENT (BEAKER) (test 2 % mzhu=797) EOSINOPHILS RELATIVE PERCENT (BEAKER) (test 1 % gdbm=811) BASOPHILS RELATIVE PERCENT (BEAKER) (test 0 % teeq=039) NEUTROPHILS ABSOLUTE COUNT (BEAKER) (test 3.83 K/ L 1.78-5.38 dgsa=432) LYMPHOCYTES ABSOLUTE COUNT (BEAKER) (test 1.05 K/ L 1.32-3.57 pieh=817) MONOCYTES ABSOLUTE COUNT (BEAKER) (test 0.11 K/ L 0.30-0.82 jfrz=272) EOSINOPHILS ABSOLUTE COUNT (BEAKER) (test 0.07 K/ L 0.04-0.54 mtci=142) BASOPHILS ABSOLUTE COUNT (BEAKER) (test 0.02 K/ L 0.01-0.08 isww=795) IMMATURE GRANULOCYTES-RELATIVE PERCENT (BEAKER) 0 % 0-1 (test dsuo=3032) [id number] 23:51:00 Test Item Value Reference Range Comments PARTIAL THROMBOPLASTIN TIME (BEAKER) (test 58.0 seconds 22.5-36.0 ionw=740) [id number] 17:03:00 Test Item Value Reference Range Comments PARTIAL THROMBOPLASTIN TIME (BEAKER) (test 33.0 seconds 22.5-36.0 zttj=316) U/S, DRAINAGE, W/ CATH [id number] 16:20:00Reason for exam:-> perihepatic abscess - ID requests aspiration to be sent for culture and drain placement.FINAL REPORT PROCEDURE: Drain Placement CLINICAL HISTORY: perihepatic abscess- ID requests aspiration to be sent for culture and drain placement. QUARTER INSPECTOR: Jefferson Swift DO, JD ANESTHESIA: Conscious sedation was provided by radiology nursing using constant hemodynamic monitoring for 7 Minutes. Versed IV 1 mg, Fentanyl IV 50 mcg. DEVICE: 12 Fr Drainage Catheter DOSE REDUCTION: The examination was performed according to the departmental dose-optimization program, which includes automated exposure control, adjustment of the mA and/or kV according to patient size and/or useof iterative reconstruction technique. Estimated Blood Loss: < 5cc Samples : As below. PROCEDURE: The risks, benefits, and alternatives to the procedure were discussed with the patient/healthcare proxy. All questions were answered and informed consent was obtained. A universal timeout was performed prior to starting the procedure. For the prevention of infection all elements of maximal sterile barrier technique, hand hygiene, skin preparation and sterile techniques were followed. Preliminary ultrasound imaging of the perihepatic collection was performed to delineate a safe path to the areaof interest. Lidocaine was used for cutaneous anesthesia. Under imaging guidance the drain was advanced into the collection. Approximately 70 mL of pus was aspirated and a sample sent for analysis. Thedrain was thoroughly irrigated with normal saline. The drain was connected to drainage and secured to the skin with a suture and a dry sterile dressing was applied. The patient tolerated the procedure well and was returned to the holding area/floor in stable condition. IMPRESSION:Successful ultrasoundguided perihepatic collection drain placement. Signed: Jefferson Swift MDReport Verified Date/Time: 05/20/2019 16:20:35 Reading Location: [place] [address] Angio Body Reading Room [id number] 06:56:00 Test Item Value Reference Range Comments PARTIAL THROMBOPLASTIN TIME (BEAKER) (test 80.6 seconds 22.5-36.0 qtah=359) [id number] 03:46:00 Test Item Value Reference Range Comments PARTIAL THROMBOPLASTIN TIME (BEAKER) (test 122.8 seconds 22.5-36.0 zgca=890) [id number] 03:45:00 Test Item Value Reference Range Comments MAGNESIUM (BEAKER) (test snjv=020) 2.2 mg/dL 1.6-2.6 BASIC METABOLIC [id number] 03:45:00 Test Item Value Reference Range Comments SODIUM (BEAKER) (test 137 meq/L 136-145 tcrj=586) POTASSIUM (BEAKER) (test 3.4 meq/L 3.5-5.1 vyoo=840) CHLORIDE (BEAKER) (test 103 meq/L 98-107 xhwc=122) CO2 (BEAKER) (test 28 meq/L 22-29 ejse=561) BLOOD UREA NITROGEN 15 mg/dL 7-21 (BEAKER) (test kdlb=749) CREATININE (BEAKER) (test 0.77 mg/dL 0.57-1.25 glty=182) GLUCOSE RANDOM (BEAKER) 100 mg/dL 70-105 (test xwcp=424) CALCIUM (BEAKER) (test 8.9 mg/dL 8.4-10.2 qglq=406) EGFR (BEAKER) (test 101 mL/min/1.73 sq m ESTIMATED GFR IS NOT ixje=3166) ACCURATE CREATININE CLEARANCE IN PREDICTING GLOMERULAR FILTRATION RATE. ESTIMATED GFR IS NOT APPLICABLE FOR DIALYSIS PATIENTS. PROTHROMBIN [id number] 03:42:00 Test Item Value Reference Range Comments PROTIME (BEAKER) (test ltju=980) 15.0 seconds 11.9-14.2 INR (BEAKER) (test ascp=843) 1.2 <=5.9 Effective 10/27/2018: PT Reference Range ChangeNew: 11.9-14.2 Previous: 11.7- 14.7RECOMMENDED COUMADIN/WARFARIN INR THERAPY RANGESSTANDARD DOSE: 2.0-3.0 Includes: PROPHYLAXIS for venous thrombosis, systemic embolization; TREATMENT for venous thrombosis and/or pulmonary embolus.HIGH RISK: Target INR is2.5-3.5 for patients wiht mechanical heart valves.CBC W/PLT COUNT & AUTO [id number] 03:29:00 Test Item Value Reference Range Comments WHITE BLOOD CELL COUNT (BEAKER) (test kkob=210) 6.0 K/ L 3.5-10.5 RED BLOOD CELL COUNT (BEAKER) (test zcse=000) 2.99 M/ L 4.63-6.08 HEMOGLOBIN (BEAKER) (test ngvi=246) 9.4 GM/DL 13.7-17.5 HEMATOCRIT (BEAKER) (test wnyj=798) 28.7 % 40.1-51.0 MEAN CORPUSCULAR VOLUME (BEAKER) (test zkrh=741) 96.0 fL 79.0-92.2 MEAN CORPUSCULAR HEMOGLOBIN (BEAKER) (test 31.4 pg 25.7-32.2 gfys=216) MEAN CORPUSCULAR HEMOGLOBIN CONC (BEAKER) (test 32.8 GM/DL 32.3-36.5 mhyi=521) RED CELL DISTRIBUTION WIDTH (BEAKER) (test 15.5 % 11.6-14.4 kyns=563) PLATELET COUNT (BEAKER) (test xuef=463) 281 K/CU MM 150-450 MEAN PLATELET VOLUME (BEAKER) (test cnsb=132) 9.6 fL 9.4-12.4 NUCLEATED RED BLOOD CELLS (BEAKER) (test 0 /100 WBC 0-0 biye=227) NEUTROPHILS RELATIVE PERCENT (BEAKER) (test 78 % ryps=386) LYMPHOCYTES RELATIVE PERCENT (BEAKER) (test 17 % tgky=913) MONOCYTES RELATIVE PERCENT (BEAKER) (test 4 % zxfl=637) EOSINOPHILS RELATIVE PERCENT (BEAKER) (test 0 % aekj=095) BASOPHILS RELATIVE PERCENT (BEAKER) (test 0 % pkvj=173) NEUTROPHILS ABSOLUTE COUNT (BEAKER) (test 4.71 K/ L 1.78-5.38 pwgw=035) LYMPHOCYTES ABSOLUTE COUNT (BEAKER) (test 1.02 K/ L 1.32-3.57 hqaj=821) MONOCYTES ABSOLUTE COUNT (BEAKER) (test 0.26 K/ L 0.30-0.82 kyba=603) EOSINOPHILS ABSOLUTE COUNT (BEAKER) (test 0.01 K/ L 0.04-0.54 hebq=170) BASOPHILS ABSOLUTE COUNT (BEAKER) (test 0.02 K/ L 0.01-0.08 dtwk=193) IMMATURE GRANULOCYTES-RELATIVE PERCENT (BEAKER) 0 % 0-1 (test ptyk=8310) [id number] 20:27:00 Test Item Value Reference Range Comments PARTIAL THROMBOPLASTIN TIME (BEAKER) (test 71.3 seconds 22.5-36.0 kcnh=577) [id number] 19:21:00 Test Item Value Reference Range Comments PARTIAL THROMBOPLASTIN TIME (BEAKER) (test 126.0 seconds 22.5-36.0 lrdr=839) [id number] 17:32:00 Test Item Value Reference Range Comments PARTIAL THROMBOPLASTIN TIME (BEAKER) (test 142.3 seconds 22.5-36.0 wixw=669) CT, [id number] 16:40:00FINAL REPORT TECHNIQUE: CT of the abdomen and pelvis WITH intravenous contrast and WITHOUT oral contrast. Dose modulation, iterative reconstruction, and/or weight-based adjustment of the mA/kV was utilized to reduce the radiation dose to as low as reasonably achievable. INDICATION: evaluation of perihepatic abscess prior to IR drainage - discussed with radiology. COMPARISON: [facility] 05/05/2019. FINDINGS: LOWER THORAX: The interventricular septum is mildly thickened. Bibasilar emphysema. HEPATOBILIARY: Prior cholecystomy. A plastic and metallic common bile duct stents are in place. There are multiple (greater than 30 masses scattered throughout the liver, majority of which have increased in size with examples as follow:*A segment VII mass measures 1.7 cm on axial image 14, previously 1.5 cm. *A mass in segment measures 2.7 cm on axial image 19, previously 2.2 cm.*A mass in segment measures 1.5 cm on axial image 26, previously 1.2 cm. The subcapsular fluid collection measures 6.4 x 6.8 x 4 cm, previously 8 x 7.4 x 4.7 cm. SPLEEN: No splenomegaly.PANCREAS: There is pancreatic ductal dilation and pancreatic atrophy with a likely pancreatic head mass which measures 1.7 x 2.7 cm, essentially unchanged. A cystic area off of the pancreatic body measures 1.5 cm and is unchanged. ADRENALS: No adrenal nodules.KIDNEYS/URETERS: No hydronephrosis or masses. A right lower pole nonobstructing stone is punctate. A left lower pole simple renal cyst measures 1.3 cm. PELVIC ORGANS/ BLADDER: Unremarkable. PERITONEUM/RETROPERITONEUM: Trace free fluid in the pelvis. No free air.LYMPH NODES: No lymphadenopathy.VESSELS: Unremarkable. GI TRACT: The third portion of the duodenum is thickened with a stent in place. The thickening is more apparent than on the prior examination. BONES AND SOFT TISSUES: Moderate to severe degenerative changes of the hips. Moderate degenerative disc changesat L5-S1. IMPRESSION: 1.The subcapsular hepatic abscess has decreased in size to 6.4 x 6.8 x 4 cm from 8 x 7.4 x 4.7 cm. 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 3.The pancreatic head mass is unchanged. There is new wall thickening around the stent in the third portion of the duodenum. 4.Plastic and metallic common bile duct stents are in place with pneumobilia which suggests patency. 5.A right lower pole nonobstructing renal stone is punctate. Signed: Timoteo Maria MDReport Verified Date/Time: 2018 16:40:08 Reading Location: [facility] C013Y CT Body Reading Room [id number] 10:54:00 Test Item Value Reference Range Comments PARTIAL THROMBOPLASTIN TIME (BEAKER) (test 35.3 seconds 22.5-36.0 udsb=292) [id number] 02:54:00 Test Item Value Reference Range Comments MAGNESIUM (BEAKER) (test lfcu=349) 2.4 mg/dL 1.6-2.6 BASIC METABOLIC [id number] 02:54:00 Test Item Value Reference Range Comments SODIUM (BEAKER) (test 135 meq/L 136-145 yyzl=838) POTASSIUM (BEAKER) (test 4.8 meq/L 3.5-5.1 hnfj=983) CHLORIDE (BEAKER) (test 96 meq/L 98-107 zgpo=409) CO2 (BEAKER) (test 31 meq/L 22-29 qbmt=551) BLOOD UREA NITROGEN 28 mg/dL 7-21 (BEAKER) (test rpie=821) CREATININE (BEAKER) (test 1.15 mg/dL 0.57-1.25 roid=976) GLUCOSE RANDOM (BEAKER) 113 mg/dL 70-105 (test lmlm=224) CALCIUM (BEAKER) (test 9.9 mg/dL 8.4-10.2 xwoz=058) EGFR (BEAKER) (test 64 mL/min/1.73 sq m ESTIMATED GFR IS NOT znzt=8667) ACCURATE CREATININE CLEARANCE IN PREDICTING GLOMERULAR FILTRATION RATE. ESTIMATED GFR IS NOT APPLICABLE FOR DIALYSIS PATIENTS. [id number] 02:51:00 Test Item Value Reference Range Comments PARTIAL THROMBOPLASTIN TIME (BEAKER) (test 45.7 seconds 22.5-36.0 phcc=817) 6 hours after starting heparin infusion and as indicated per sliding scaleCBC W/ PLT COUNT & AUTO [id number] 02:43:00 Test Item Value Reference Range Comments WHITE BLOOD CELL COUNT (BEAKER) (test mhxw=490) 13.4 K/ L 3.5-10.5 RED BLOOD CELL COUNT (BEAKER) (test rbmr=627) 3.46 M/ L 4.63-6.08 HEMOGLOBIN (BEAKER) (test tjue=262) 10.8 GM/DL 13.7-17.5 HEMATOCRIT (BEAKER) (test obsv=411) 32.6 % 40.1-51.0 MEAN CORPUSCULAR VOLUME (BEAKER) (test xkvf=780) 94.2 fL 79.0-92.2 MEAN CORPUSCULAR HEMOGLOBIN (BEAKER) (test 31.2 pg 25.7-32.2 sjha=037) MEAN CORPUSCULAR HEMOGLOBIN CONC (BEAKER) (test 33.1 GM/DL 32.3-36.5 qykn=611) RED CELL DISTRIBUTION WIDTH (BEAKER) (test 15.5 % 11.6-14.4 hlmo=334) PLATELET COUNT (BEAKER) (test lxnf=080) 451 K/CU MM 150-450 MEAN PLATELET VOLUME (BEAKER) (test icst=373) 9.6 fL 9.4-12.4 NUCLEATED RED BLOOD CELLS (BEAKER) (test 0 /100 WBC 0-0 edjj=907) NEUTROPHILS RELATIVE PERCENT (BEAKER) (test 77 % iuaw=872) LYMPHOCYTES RELATIVE PERCENT (BEAKER) (test 14 % wyeo=371) MONOCYTES RELATIVE PERCENT (BEAKER) (test 8 % zvxw=310) EOSINOPHILS RELATIVE PERCENT (BEAKER) (test 0 % newc=290) BASOPHILS RELATIVE PERCENT (BEAKER) (test 0 % hpdh=332) NEUTROPHILS ABSOLUTE COUNT (BEAKER) (test 10.36 K/ L 1.78-5.38 syuv=571) LYMPHOCYTES ABSOLUTE COUNT (BEAKER) (test 1.87 K/ L 1.32-3.57 stqx=895) MONOCYTES ABSOLUTE COUNT (BEAKER) (test 1.08 K/ L 0.30-0.82 qeti=423) EOSINOPHILS ABSOLUTE COUNT (BEAKER) (test 0.00 K/ L 0.04-0.54 hkvs=569) BASOPHILS ABSOLUTE COUNT (BEAKER) (test 0.02 K/ L 0.01-0.08 vdxa=165) IMMATURE GRANULOCYTES-RELATIVE PERCENT (BEAKER) 0 % 0-1 (test bwic=3242) [id number] 18:35:00 Test Item Value Reference Range Comments PARTIAL THROMBOPLASTIN TIME (BEAKER) (test 33.2 seconds 22.5-36.0 ycbx=098) PROTHROMBIN TIME/[id number] 18:34:00 Test Item Value Reference Range Comments PROTIME (BEAKER) (test yxel=434) 17.9 seconds 11.9-14.2 INR (BEAKER) (test lhzy=187) 1.6 <=5.9 Effective 10/27/2018: PT Reference Range ChangeNew: 11.9-14.2 Previous: 11.7- 14.7RECOMMENDED COUMADIN/WARFARIN INR THERAPY RANGESSTANDARD DOSE: 2.0-3.0 Includes: PROPHYLAXIS for venous thrombosis, systemic embolization; TREATMENT for venous thrombosis and/or pulmonary embolus.HIGH RISK: Target INR is2.5-3.5 for patients wiht mechanical heart valves.[id number] 18:33:00 Test Item Value Reference Range Comments MAGNESIUM (BEAKER) (test 2.3 mg/dL 1.6-2.6 Specimen slightly hemolyzed tnca=785) [id number] 18:33:00 Test Item Value Reference Range Comments PHOSPHORUS (BEAKER) (test 3.6 mg/dL 2.3-4.7 Specimen slightly hemolyzed opyp=403) COMPREHENSIVE METABOLIC [id number] 18:33:00 Test Item Value Reference Range Comments TOTAL PROTEIN (BEAKER) 7.0 gm/dL 6.0-8.3 Specimen slightly (test vtpw=025) hemolyzed ALBUMIN (BEAKER) (test 3.7 g/dL 3.5-5.0 Specimen slightly miin=9768) hemolyzed ALKALINE PHOSPHATASE 114 U/L 40-150 (BEAKER) (test oyfb=931) BILIRUBIN TOTAL (BEAKER) 1.2 mg/dL 0.2-1.2 Specimen slightly (test oihw=225) hemolyzed SODIUM (BEAKER) (test 132 meq/L 136-145 ofdr=771) POTASSIUM (BEAKER) (test 4.9 meq/L 3.5-5.1 Specimen slightly xwzb=229) hemolyzed CHLORIDE (BEAKER) (test 93 meq/L 98-107 tzzz=960) CO2 (BEAKER) (test 26 meq/L 22-29 ozsk=509) BLOOD UREA NITROGEN 30 mg/dL 7-21 (BEAKER) (test feme=297) CREATININE (BEAKER) (test 1.20 mg/dL 0.57-1.25 Specimen slightly ndwg=963) hemolyzed GLUCOSE RANDOM (BEAKER) 106 mg/dL 70-105 (test lkgz=156) CALCIUM (BEAKER) (test 10.4 mg/dL 8.4-10.2 dwgt=646) AST (SGOT) (BEAKER) (test 20 U/L 5-34 Specimen slightly zrtc=954) hemolyzed ALT (SGPT) (BEAKER) (test 7 U/L 6-55 Specimen slightly mklw=687) hemolyzed EGFR (BEAKER) (test 61 mL/min/1.73 sq m ESTIMATED GFR IS NOT reyh=6224) ACCURATE CREATININE CLEARANCE IN PREDICTING GLOMERULAR FILTRATION RATE. ESTIMATED GFR IS NOT APPLICABLE FOR DIALYSIS PATIENTS. CBC W/PLT COUNT & AUTO [id number] 18:16:00 Test Item Value Reference Range Comments WHITE BLOOD CELL COUNT (BEAKER) (test ibnp=013) 11.9 K/ L 3.5-10.5 RED BLOOD CELL COUNT (BEAKER) (test hdvj=654) 3.63 M/ L 4.63-6.08 HEMOGLOBIN (BEAKER) (test ljna=183) 11.4 GM/DL 13.7-17.5 HEMATOCRIT (BEAKER) (test ffky=749) 34.4 % 40.1-51.0 MEAN CORPUSCULAR VOLUME (BEAKER) (test asqf=082) 94.8 fL 79.0-92.2 MEAN CORPUSCULAR HEMOGLOBIN (BEAKER) (test 31.4 pg 25.7-32.2 xlmm=347) MEAN CORPUSCULAR HEMOGLOBIN CONC (BEAKER) (test 33.1 GM/DL 32.3-36.5 chho=328) RED CELL DISTRIBUTION WIDTH (BEAKER) (test 15.3 % 11.6-14.4 rqmj=507) PLATELET COUNT (BEAKER) (test srvl=576) 578 K/CU MM 150-450 MEAN PLATELET VOLUME (BEAKER) (test lgyu=298) 9.4 fL 9.4-12.4 NUCLEATED RED BLOOD CELLS (BEAKER) (test 0 /100 WBC 0-0 antu=348) NEUTROPHILS RELATIVE PERCENT (BEAKER) (test 78 % hixp=905) LYMPHOCYTES RELATIVE PERCENT (BEAKER) (test 11 % gvfh=620) MONOCYTES RELATIVE PERCENT (BEAKER) (test 11 % msxx=532) EOSINOPHILS RELATIVE PERCENT (BEAKER) (test 0 % ejio=312) BASOPHILS RELATIVE PERCENT (BEAKER) (test 0 % izeo=060) NEUTROPHILS ABSOLUTE COUNT (BEAKER) (test 9.28 K/ L 1.78-5.38 gaoq=432) LYMPHOCYTES ABSOLUTE COUNT (BEAKER) (test 1.31 K/ L 1.32-3.57 ceea=653) MONOCYTES ABSOLUTE COUNT (BEAKER) (test 1.26 K/ L 0.30-0.82 qrga=602) EOSINOPHILS ABSOLUTE COUNT (BEAKER) (test 0.00 K/ L 0.04-0.54 tgdf=051) BASOPHILS ABSOLUTE COUNT (BEAKER) (test 0.01 K/ L 0.01-0.08 ffcf=985) IMMATURE GRANULOCYTES-RELATIVE PERCENT (BEAKER) 1 % 0-1 (test qqou=0891) CT, [id number] 13:21:00FINAL REPORT CT of the chest, abdomen and pelvis, with contrast Clinical History: Adenocarcinoma of head of pancreas Technique: CT of the chest, abdomen and pelvis is performedwith intravenous contrast administration. This exam was performed according to our departmental dose optimization program which includes automated exposure control, adjustment of the mA and/or kV according to patient' s size and/or use of iterative reconstructive technique. Comparison Film: March 24, 2019, March 05, 2019 Discussion: A filling defect is seen in the distal right main pulmonary artery extending to the right lower lobar arteries. There is also a small eccentrically located embolus straddling the bifurcation of the left main pulmonary artery. There is a right-sided Port-A-Cath. Visualized thyroid gland is normal. No supraclavicular, axillary, or mediastinal lymphadenopathy. Heart and pericardium are unremarkable. There is mhpu-ht-bwzmibek pulmonary emphysema. No new consolidation.There are a few nonspecific tiny pulmonary nodules, without significant interval change. No pleural effusion. Central airways are patent. Interval placement of two new biliary stents extending into theleft and right hepatic ducts. Pneumobilia is again seen, without significant ductal dilatation. There are multiple hypoenhancing lesions in the liver, compatible with metastasis and they have become larger since the previous exam. For example, a 2.1 cm lesion in the posterior right lobe (image 59, series 3) previously measured 1.5 cm a perihepatic air and fluid collection is larger, now measuring 5 x7.3 cm. Hepatic vasculature is patent. A stent has been placed in the transverse portion of the duodenum. Ill-defined uncinate process and head mass is again seen. Unchanged pancreatic body and tail parenchymal atrophy and main duct dilatation. Stable cyst in the pancreatic body. Spleen, adrenal glands are unremarkable. Kidneys demonstrate no hydronephrosis, mass or radiopaque stone. No bowel obstruction. However, there is a large amount of fecal content in the left colon, suggesting constipation. Small bowel is nonspecifically fluid- filled. No significant bowel wall thickening is identified. In the pelvis, bladder, prostate and seminal vesicles are unremarkable. No new adenopathy. No ascites. No suspicious bony lesion is identified. Impression: Interval development of bilateral pulmonary emboli,as described, the one in the left main pulmonary artery appears subacute. This finding is discussed with Dr. Buchanan at 5:10 PM, May 05, 2019. Interval progression of hepatic metastasis. Two additional biliary stents have been placed, no significant ductal dilatation. Interval enlargement of right perihepatic abscess. Grossly unchanged appearance of infiltrative mass in the pancreatic head and uncinate process. Interval placement of stent in transverse duodenum. No evidence of bowel obstruction. Findings suggest constipation. Signed: Deuce Hamm MDRort Verified Date/Time: 05/06/2019 13:21:26 Reading Location: [facility] C013X [facility] Consult Reading Room Electronically signed by: DEUCE HAMM M.D. on 2018 01:21 PMCT, CHEST, WITH IV [id number] 13:21:00FINAL REPORT CT of the chest, abdomen and pelvis, with contrast Clinical History: Adenocarcinoma of head of pancreas Technique: CT of the chest, abdomen and pelvis is performedwith intravenous contrast administration. This exam was performed according to our departmental dose optimization program which includes automated exposure control, adjustment of the mA and/or kV according to patient's size and/or use of iterative reconstructive technique. Comparison Film: March 24, 2019, March 05, 2019 Discussion: A filling defect is seen in the distal right main pulmonary artery extending to the right lower lobar arteries. There is also a small eccentrically located embolus straddling the bifurcation of the left main pulmonary artery. There is a right- sided Port-A-Cath. Visualized thyroid gland is normal. No supraclavicular, axillary, or mediastinal lymphadenopathy. Heart and pericardium are unremarkable. There is oubp-ab-extovnoi pulmonary emphysema. No new consolidation.There are a few nonspecific tiny pulmonary nodules, without significant interval change. No pleural effusion. Central airways are patent. Interval placement of two new biliary stents extending into theleft and right hepatic ducts. Pneumobilia is again seen, without significant ductal dilatation. There are multiple hypoenhancing lesions in the liver, compatible with metastasis and they have become larger since the previous exam. For example , a 2.1 cm lesion in the posterior right lobe (image 59, series 3) previously measured 1.5 cm a perihepatic air and fluid collection is larger, now measuring 5 x7.3 cm. Hepatic vasculature is patent. A stent has been placed in the transverse portion of the duodenum. Ill-defined uncinate process and head mass is again seen. Unchanged pancreatic body and tail parenchymal atrophy and main duct dilatation. Stable cyst in the pancreatic body. Spleen, adrenal glands are unremarkable. Kidneys demonstrate no hydronephrosis, mass or radiopaque stone. No bowel obstruction. However, there is a large amount of fecal content in the left colon, suggesting constipation. Small bowel is nonspecifically fluid- filled. No significant bowel wall thickening is identified. In the pelvis, bladder, prostate and seminal vesicles are unremarkable. No new adenopathy. No ascites. No suspicious bony lesion is identified. Impression: Interval development of bilateral pulmonary emboli,as described, the one in the left main pulmonary artery appears subacute. This finding is discussed with Dr. Buchanan at 5:10 PM, May 05, 2019. Interval progression of hepatic metastasis. Two additional biliary stents have been placed, no significant ductal dilatation. Interval enlargement of right perihepatic abscess. Grossly unchanged appearance of infiltrative mass in the pancreatic head and uncinate process. Interval placement of stent in transverse duodenum. No evidence of bowel obstruction. Findings suggest constipation. Signed: Deuce Hammepcox north Verified Date/Time: 05/06/2019 13:21:26 Reading Location: [facility] B1 C013X Ortho Consult Reading Room Electronically signed by: DEUCE HAMM M.D. on 2018 01:21 PMFL, [id number] 15:48:00Reason for exam:->pncreatic cancerFINAL REPORT A fluoroscopic unit was utilized for a procedure performed in the operating room. No interpretation was requested. Please refer to the operative report regarding findings. Please refer to PACS for patient radiation dose information. Signed: Walker Mars MDReport Verified Date/Time: 04/07/2019 15:48:51 Reading Location: [address] Radiology Reading Room CT, [id number] 15:52:00Reason for Exam:-> C25.0FINAL REPORT TECHNIQUE: CT of the chest WITH intravenous contrast. CT of the abdomen and pelvis WITHOUT and WITH intravenous contrast and WITHOUT oral contrast. Dose modulation, iterative reconstruction, and/or weight-based adjustment of the mA/kV was utilized to reduce the radiation dose to as low as reasonably achievable. INDICATION: 68-year-old man with malignant neoplasm ofhead of pancreas. COMPARISON: Chest CT 01/13/2019; abdomen and pelvis CT 03/17/2019, 03/01/2019, and 01/13/2019. FINDINGS: LINES/ TUBES: Unchanged right internal jugular chest port. LUNGS AND AIRWAYS: Central airways are patent. Unchanged mild emphysema. Unchanged 2-3 mm nodules in the right upper lobe (axial lung window series images 36, 39, and 98). Unchanged 2- 4 mm nodules in the left upper lobe (axial lung window series images 81, 89, 125 , 139, 147, 159, and 164). 2 mm nodule in the superior segment of the left lower lobe, not clearly visualized on prior exam (axial lung window series image 81). Persistent linear atelectasis and/or scarring in both lung bases.PLEURA: The pleural spaces are clear.HEART AND MEDIASTINUM: The visualized thyroid gland is normal. Mildly increased size of subcentimeterprevascular and paraesophageal lymph nodes, which now measure up to 0.9 cm. Some of the prevascular lymph nodes have developed central hypodensity, suspicious for necrosis (for example, axial series image 29). Slightly increased size of multiple paraesophageal lymph nodes which measure up to 0.9 cm. The heart and pericardium are within normal limits. Unchanged ectatic ascending thoracic aorta measures approximately 4 cm in diameter. HEPATOBILIARY: Scattered hypodense lesions in both lobes of the liver are not significantly changed since 03/01/2019, but are increased in number and size since 01/13/2019. For example, the largest lesion in segment currently measures 1.7 x 1.8 cm and previously measured 1.1 x 1.1 cm on 01/13/2019. Unchanged scattered hepatic cysts measure up to 1.5 x 1.1 cm. Increased severe intrahepatic and extrahepatic biliary ductal dilatation since 03/17/2019 despite the presence of a metallic common duct stent, which appears in expected position. Persistent pneumobilia. Prior cholecystectomy.SPLEEN: No splenomegaly.PANCREAS: Unchanged ill-defined 2.6 x 2.9 cm hypodense mass in the pancreatic head and uncinate process abuts the third duodenal segment. Unchanged upstream pancreatic ductal dilatation up to 1 cm in diameter. No significant change in scattered cystic lesions in the pancreatic body and tail, the largest measures 1.5 x 1.6 cm. ADRENALS: No adrenal nodules.KIDNEYS/URETERS : No hydronephrosis or stones. Unchanged 1.1 x 1.4 cm left renal cyst. Unchanged subcentimeter hypodensities in both kidneys are too small to characterize, but are also likely cysts.PELVIC ORGANS/BLADDER: Bladder is underdistended. Prostate and seminal vesicles are grossly unremarkable. PERITONEUM/RETROPERITONEUM: The air and fluid-containing collection along the capsule of hepatic segment IV has slightly decreased in size from 3.8 x 1.9 x 4.5 cm to 3.5 x 1.8 x 3.7 cm. Trace ascites. No free air.LYMPH NODES: Unchanged mildly prominent and centrally necrotic left retroperitoneal lymph nodes measure up to 1.1 cm.VESSELS: Peripancreatic vessels are patent. Atherosclerotic vascular calcifications in the abdominal aorta and bilateral iliac arteries without aneurysm. GI TRACT: The second duodenal segment is distended with fluid up to 4.2 cm in diameter with apparent luminal narrowing in the third duodenal segment, in the region of the pancreatic mass. Moderate stool throughout the colon. BONESAND SOFT TISSUES: Degenerative changes of the visualized spine and both hips. Soft tissues are unremarkable. IMPRESSION: Chest CT:*New 2 mm pulmonary nodule in the left lower lobe. Other 2-4 mm bilateral pulmonary nodules have not significantly changed.*Mildly increased size of mediastinal lymph nodes with new central necrosis, suspicious for metastases. Abdomen and pelvis CT:*Mildly decreased sizeof the subcapsular hepatic abscess.*Increased severe biliary ductal dilatation since 03/17/2019 withunchanged position of the metallic common duct stent. ERCP may be obtained for further evaluation.*No significant change since 01/13/2019 of the pancreatic head/uncinate process mass as well as retroperitoneal lymphadenopathy. Unchanged cystic lesions in the pancreatic body and tail.*No significant change since 03/17/2019 of the hypodense hepatic lesions, which are suspicious for metastases. These lesions have increased in size and number since 01/13/2019.* Distention of the second duodenal segment with apparent luminal narrowing in the region of the third duodenal segment, in the region of the pancreatic mass. Partial obstruction by the mass cannot be excluded. Signed: Walker Mars MDReport Verified Date/Time: 03/24/2019 15:52:43 Reading Location: [address] Radiology Reading Room CT, CHEST, WITH [id number] 15:52:00Reason for Exam:->C25.0FINAL REPORT TECHNIQUE: CT of the chest WITH intravenous contrast. CT of the abdomen and pelvis WITHOUT and WITH intravenous contrast and WITHOUT oral contrast. Dose modulation, iterative reconstruction, and/or weight-based adjustment of the mA/kV was utilized to reduce the radiation dose to as low as reasonably achievable. INDICATION: 68- year-old man with malignant neoplasm ofhead of pancreas. COMPARISON: Chest CT ; abdomen and pelvis CT 03/17/2019, 03/01/2019, and 01/13/2019. FINDINGS: LINES/TUBES: Unchanged right internal jugular chest port. LUNGS AND AIRWAYS: Central airways are patent. Unchanged mild emphysema. Unchanged 2-3 mm nodules in the right upper lobe (axial lung window series images 36, 39, and 98). Unchanged 2-4 mm nodules in the left upper lobe (axial lung window series images 81, 89, 125, 139, 147, 159, and 164). 2 mm nodule in the superior segment of the left lower lobe, not clearly visualized on prior exam (axial lung window series image 81). Persistent linear atelectasis and/or scarring in both lung bases.PLEURA: The pleural spaces are clear.HEART AND MEDIASTINUM: The visualized thyroid gland is normal. Mildly increased size of subcentimeterprevascular and paraesophageal lymph nodes, which now measure up to 0.9 cm. Some of the prevascular lymph nodes have developed central hypodensity, suspicious for necrosis (for example, axial series image 29). Slightly increased size of multiple paraesophageal lymph nodes which measure up to 0.9 cm. The heart and pericardium are within normal limits. Unchanged ectatic ascending thoracic aorta measures approximately 4 cm in diameter. HEPATOBILIARY: Scattered hypodense lesions in both lobes of the liver are not significantly changed since 03/01/2019, but are increased in number and size since 01/13/2019. For example, the largest lesion in segment currently measures 1.7 x 1.8 cm and previously measured 1.1 x 1.1 cm on 01/13/2019. Unchanged scattered hepatic cysts measure up to 1.5 x 1.1 cm. Increased severe intrahepatic and extrahepatic biliary ductal dilatation since 03/17/2019 despite the presence of a metallic common duct stent, which appears in expected position. Persistent pneumobilia. Prior cholecystectomy.SPLEEN: No splenomegaly.PANCREAS: Unchanged ill-defined 2.6 x 2.9 cm hypodense mass in the pancreatic head and uncinate process abuts the third duodenal segment. Unchanged upstream pancreatic ductal dilatation up to 1 cm in diameter. No significant change in scattered cystic lesions in the pancreatic body and tail, the largest measures 1.5 x 1.6 cm. ADRENALS: No adrenal nodules.KIDNEYS/URETERS : No hydronephrosis or stones. Unchanged 1.1 x 1.4 cm left renal cyst. Unchanged subcentimeter hypodensities in both kidneys are too small to characterize, but are also likely cysts.PELVIC ORGANS/BLADDER: Bladder is underdistended. Prostate and seminal vesicles are grossly unremarkable. PERITONEUM/RETROPERITONEUM: The air and fluid-containing collection along the capsule of hepatic segment IV has slightly decreased in size from 3.8 x 1.9 x 4.5 cm to 3.5 x 1.8 x 3.7 cm. Trace ascites. No free air.LYMPH NODES: Unchanged mildly prominent and centrally necrotic left retroperitoneal lymph nodes measure up to 1.1 cm.VESSELS: Peripancreatic vessels are patent. Atherosclerotic vascular calcifications in the abdominal aorta and bilateral iliac arteries without aneurysm. GI TRACT: The second duodenal segment is distended with fluid up to 4.2 cm in diameter with apparent luminal narrowing in the third duodenal segment, in the region of the pancreatic mass. Moderate stool throughout the colon. BONESAND SOFT TISSUES: Degenerative changes of the visualized spine and both hips. Soft tissues are unremarkable. IMPRESSION: Chest CT:*New 2 mm pulmonary nodule in the left lower lobe. Other 2-4 mm bilateral pulmonary nodules have not significantly changed.*Mildly increased size of mediastinal lymph nodes with new central necrosis, suspicious for metastases. Abdomen and pelvis CT:*Mildly decreased sizeof the subcapsular hepatic abscess.*Increased severe biliary ductal dilatation since 03/17/2019 withunchanged position of the metallic common duct stent. ERCP may be obtained for further evaluation.*No significant change since 01/13/2019 of the pancreatic head/uncinate process mass as well as retroperitoneal lymphadenopathy. Unchanged cystic lesions in the pancreatic body and tail.*No significant change since 03/17/2019 of the hypodense hepatic lesions, which are suspicious for metastases. These lesions have increased in size and number since 01/13/2019.* Distention of the second duodenal segment with apparent luminal narrowing in the region of the third duodenal segment, in the region of the pancreatic mass. Partial obstruction by the mass cannot be excluded. Signed: Walker Mars MDReport Verified Date/Time: 03/24/2019 15:52:43 Reading Location: [address] Radiology Reading Room ANAEROBIC [id number] 19:03:00 Test Item Value Reference Range Comments CULTURE (BEAKER) (test kelu=7607) 1+ [place] glabrata No anaerobes isolatedURINALYSIS W/ REFLEX URINE [id number] 04:46:00 Test Item Value Reference Range Comments COLOR (BEAKER) (test tdwm=567) Yellow CLARITY (BEAKER) (test wzvh=175) Clear SPECIFIC GRAVITY UA (BEAKER) (test bxzb=331) 1.036 1.001-1.035 PH UA (BEAKER) (test gdmy=533) 6.0 5.0-8.0 PROTEIN UA (BEAKER) (test kdhv=878) Negative Negative GLUCOSE UA (BEAKER) (test ybgu=909) Negative Negative KETONES UA (BEAKER) (test pxni=511) 10 mg/dL Negative BILIRUBIN UA (BEAKER) (test izsm=459) Negative Negative BLOOD UA (BEAKER) (test wecn=571) Negative Negative NITRITE UA (BEAKER) (test uxtx=622) Negative Negative LEUKOCYTE ESTERASE UA (BEAKER) (test jmjj=486) Negative Negative UROBILINOGEN UA (BEAKER) (test iovk=761) 0.2 mg/dL 0.2-1.0 RBC UA (BEAKER) (test potf=911) < /HPF WBC UA (BEAKER) (test xark=821) 3 /HPF MUCUS (BEAKER) (test jkhb=2336) Rare SQUAMOUS EPITHELIAL (BEAKER) (test ieuv=890) < /HPF SOURCE(BEAKER) (test cpce=7281) CT, [id number] 02:06:00Reason for exam:->pancreatic adeno. prior abscess drainageWhat is the patient's sedation requirement?->No SedationFINAL REPORT CT, ABDOMEN \\T\\ PELVIS, WITH IV CONTRAST CLINICAL HISTORY: Abdominal infection suspectedpancreatic adeno. prior abscess drainage TECHNIQUE: Multiple axial images ofthe abdomen and pelvis were performed after the uncomplicated administration of IV contrast. [place] sagittal reformats obtained. Oral contrast was not administered. This exam was performed according to our departmental dose-optimization program , which includes automated exposure control, adjustment of the mA and/or kV according to patient size and/or use of the iterative reconstruction technique. COMPARISON: CT abdomen March 05, 2019, CT abdomen pelvis March 01, 2019. FINDINGS:LOWER CHEST: Stable emphysematous changes and bibasilar scarring. LIVER : Multiple hypodense liver lesions, right lobe 1.7 cm lesion, stable. Left lobe 1.4 cm lesion, stable, additional smaller lesions are similar in appearance. No new liver lesions. Subhepatic gas and fluid collection is reduced in size, now 4 x 2 x 3 cm.BILIARY SYSTEM: Intrahepatic ductal dilatation with biliary. Extra hepatic biliary stent.PANCREAS: Pancreatic ductal dilatation with side branch cystic dilatation versus lesion, 1.3 cm. Pancreatic head mixed density lesion with ill-defined borders is similar prior examination, roughly 2 cm in diameter.SPLEEN: No acute findings.ADRENAL GLANDS: Unremarkable.KIDNEYS URETERS : No acute findings. Left kidney lower pole 1.2 cm cyst. GASTROINTESTINAL/ MESENTERY: No bowel obstruction or abnormal wall thickening. Large volume of retained fecal material. No evidence of acute appendicitis. URINARY BLADDER: Enhancing versus hyperdense lesion adjacent to the right UVJ, 2.1 cmREPRODUCTIVE ORGANS: No acute findings. PERITONEUM/RETROPERITONEUM: No free air or free fluid VESSELS: No acute findings. LYMPH NODES:Peripancreatic and periaortic lymphadenopathy including left periaortic 3.2 x 2.7 x 1.1 cm matted lymphadenopathy.SOFT TISSUES: No acute findings.BONES: No suspicious osseous lesion. Stable lumbar spondylosis. Other: None IMPRESSION:Stable pancreatic head mixed density ill-defined lesion, cystic components estimated at 2 cm. There is pancreatic ductal dilatation, regional pathologic lymphadenopathy and stable hepatic lesions concerning for metastasis. Hepatic subcapsular abscess is reduced in size,4 x 3 x 2 cm. New urinary bladder lesion, 2.1 cm, possibly malignancy versus blood clot. Ultrasound may be of benefit for further characterization. Alternatively direct endoscopic visualization should be considered. Correlate for constipation. Signed: Ahsan Wright MDReport Verified Date/Time: 03/17/2019 02:06:52 [id number] 01:04:00 Test Item Value Reference Range Comments LIPASE (BEAKER) (test bsbs=901) 44 U/L 8-78 [id number] 01:04:00 Test Item Value Reference Range Comments AMYLASE (BEAKER) (test fkfe=994) 70 U/L 25-125 BASIC METABOLIC [id number] 01:04:00 Test Item Value Reference Range Comments SODIUM (BEAKER) (test 131 meq/L 136-145 bsla=871) POTASSIUM (BEAKER) (test 3.9 meq/L 3.5-5.1 kevt=598) CHLORIDE (BEAKER) (test 96 meq/L 98-107 eajn=908) CO2 (BEAKER) (test 24 meq/L 22-29 iipt=139) BLOOD UREA NITROGEN 21 mg/dL 7-21 (BEAKER) (test edug=518) CREATININE (BEAKER) (test 1.02 mg/dL 0.57-1.25 clwi=530) GLUCOSE RANDOM (BEAKER) 84 mg/dL 70-105 (test btcr=890) CALCIUM (BEAKER) (test 10.0 mg/dL 8.4-10.2 pzpl=358) EGFR (BEAKER) (test 73 mL/min/1.73 sq m ESTIMATED GFR IS NOT uxst=6699) ACCURATE CREATININE CLEARANCE IN PREDICTING GLOMERULAR FILTRATION RATE. ESTIMATED GFR IS NOT APPLICABLE FOR DIALYSIS PATIENTS. HEPATIC FUNCTION [id number] 01:04:00 Test Item Value Reference Range Comments TOTAL PROTEIN (BEAKER) (test qeqh=834) 7.1 gm/dL 6.0-8.3 ALBUMIN (BEAKER) (test pams=3368) 3.4 g/dL 3.5-5.0 BILIRUBIN TOTAL (BEAKER) (test xktj=040) 1.3 mg/dL 0.2-1.2 BILIRUBIN DIRECT (BEAKER) (test hmxz=194) 0.5 mg/dL 0.1-0.5 ALKALINE PHOSPHATASE (BEAKER) (test urrh=487) 196 U/L 40-150 AST (SGOT) (BEAKER) (test etus=468) 17 U/L 5-34 ALT (SGPT) (BEAKER) (test fzpb=157) 8 U/L 6-55 CBC W/PLT COUNT & AUTO [id number] 00:38:00 Test Item Value Reference Range Comments WHITE BLOOD CELL COUNT (BEAKER) (test ngcx=504) 7.5 K/ L 3.5-10.5 RED BLOOD CELL COUNT (BEAKER) (test wiom=140) 3.44 M/ L 4.63-6.08 HEMOGLOBIN (BEAKER) (test bsot=984) 10.1 GM/DL 13.7-17.5 HEMATOCRIT (BEAKER) (test ltza=519) 31.8 % 40.1-51.0 MEAN CORPUSCULAR VOLUME (BEAKER) (test jbcv=038) 92.4 fL 79.0-92.2 MEAN CORPUSCULAR HEMOGLOBIN (BEAKER) (test 29.4 pg 25.7-32.2 tofz=919) MEAN CORPUSCULAR HEMOGLOBIN CONC (BEAKER) (test 31.8 GM/DL 32.3-36.5 zuah=700) RED CELL DISTRIBUTION WIDTH (BEAKER) (test 19.4 % 11.6-14.4 chto=083) PLATELET COUNT (BEAKER) (test curf=086) 537 K/CU MM 150-450 MEAN PLATELET VOLUME (BEAKER) (test trqi=865) 9.0 fL 9.4-12.4 NUCLEATED RED BLOOD CELLS (BEAKER) (test 0 /100 WBC 0-0 amyc=780) NEUTROPHILS RELATIVE PERCENT (BEAKER) (test 67 % rrqd=997) LYMPHOCYTES RELATIVE PERCENT (BEAKER) (test 20 % kytn=237) MONOCYTES RELATIVE PERCENT (BEAKER) (test 12 % uelb=683) EOSINOPHILS RELATIVE PERCENT (BEAKER) (test 1 % pfdt=219) BASOPHILS RELATIVE PERCENT (BEAKER) (test 1 % rhhg=341) NEUTROPHILS ABSOLUTE COUNT (BEAKER) (test 5.06 K/ L 1.78-5.38 rvbf=285) LYMPHOCYTES ABSOLUTE COUNT (BEAKER) (test 1.46 K/ L 1.32-3.57 mjge=459) MONOCYTES ABSOLUTE COUNT (BEAKER) (test 0.86 K/ L 0.30-0.82 qjfl=398) EOSINOPHILS ABSOLUTE COUNT (BEAKER) (test 0.06 K/ L 0.04-0.54 tsxh=592) BASOPHILS ABSOLUTE COUNT (BEAKER) (test 0.04 K/ L 0.01-0.08 bdho=230) IMMATURE GRANULOCYTES-RELATIVE PERCENT (BEAKER) 0 % 0-1 (test zdjw=1480) BASIC METABOLIC [id number] 06:32:00 Test Item Value Reference Range Comments SODIUM (BEAKER) (test 134 meq/L 136-145 ehxm=560) POTASSIUM (BEAKER) (test 3.8 meq/L 3.5-5.1 quxt=931) CHLORIDE (BEAKER) (test 101 meq/L 98-107 dlac=621) CO2 (BEAKER) (test 28 meq/L 22-29 rqlm=464) BLOOD UREA NITROGEN 7 mg/dL 7-21 (BEAKER) (test gngi=463) CREATININE (BEAKER) (test 0.71 mg/dL 0.57-1.25 napd=863) GLUCOSE RANDOM (BEAKER) 92 mg/dL 70-105 (test cojw=674) CALCIUM (BEAKER) (test 8.9 mg/dL 8.4-10.2 uxuv=546) EGFR (BEAKER) (test 111 mL/min/1.73 sq m ESTIMATED GFR IS NOT bslz=3240) ACCURATE CREATININE CLEARANCE IN PREDICTING GLOMERULAR FILTRATION RATE. ESTIMATED GFR IS NOT APPLICABLE FOR DIALYSIS PATIENTS. CBC W/PLT COUNT & AUTO [id number] 05:40:00 Test Item Value Reference Range Comments WHITE BLOOD CELL COUNT (BEAKER) (test ibdx=652) 8.9 K/ L 3.5-10.5 RED BLOOD CELL COUNT (BEAKER) (test fydd=757) 2.98 M/ L 4.63-6.08 HEMOGLOBIN (BEAKER) (test ojom=928) 8.4 GM/DL 13.7-17.5 HEMATOCRIT (BEAKER) (test hwvg=493) 27.4 % 40.1-51.0 MEAN CORPUSCULAR VOLUME (BEAKER) (test wbyt=577) 91.9 fL 79.0-92.2 MEAN CORPUSCULAR HEMOGLOBIN (BEAKER) (test 28.2 pg 25.7-32.2 evfj=364) MEAN CORPUSCULAR HEMOGLOBIN CONC (BEAKER) (test 30.7 GM/DL 32.3-36.5 uarm=648) RED CELL DISTRIBUTION WIDTH (BEAKER) (test 18.7 % 11.6-14.4 brfh=078) PLATELET COUNT (BEAKER) (test vjvw=778) 309 K/CU MM 150-450 MEAN PLATELET VOLUME (BEAKER) (test wunh=015) 9.1 fL 9.4-12.4 NUCLEATED RED BLOOD CELLS (BEAKER) (test 0 /100 WBC 0-0 gzfz=235) NEUTROPHILS RELATIVE PERCENT (BEAKER) (test 72 % zyct=088) LYMPHOCYTES RELATIVE PERCENT (BEAKER) (test 15 % faum=065) MONOCYTES RELATIVE PERCENT (BEAKER) (test 10 % jyez=914) EOSINOPHILS RELATIVE PERCENT (BEAKER) (test 1 % moha=760) BASOPHILS RELATIVE PERCENT (BEAKER) (test 0 % jznc=948) NEUTROPHILS ABSOLUTE COUNT (BEAKER) (test 6.42 K/ L 1.78-5.38 skiw=744) LYMPHOCYTES ABSOLUTE COUNT (BEAKER) (test 1.37 K/ L 1.32-3.57 ncka=357) MONOCYTES ABSOLUTE COUNT (BEAKER) (test 0.84 K/ L 0.30-0.82 tjks=800) EOSINOPHILS ABSOLUTE COUNT (BEAKER) (test 0.09 K/ L 0.04-0.54 trkw=078) BASOPHILS ABSOLUTE COUNT (BEAKER) (test 0.02 K/ L 0.01-0.08 odov=620) IMMATURE GRANULOCYTES-RELATIVE PERCENT (BEAKER) 2 % 0-1 (test oqbd=9175) CBC W/PLT COUNT & AUTO [id number] 12:20:00 Test Item Value Reference Range Comments WHITE BLOOD CELL COUNT (BEAKER) (test romg=714) 7.0 K/ L 3.5-10.5 RED BLOOD CELL COUNT (BEAKER) (test atan=995) 3.13 M/ L 4.63-6.08 HEMOGLOBIN (BEAKER) (test stjf=565) 8.8 GM/DL 13.7-17.5 HEMATOCRIT (BEAKER) (test vjyz=427) 28.8 % 40.1-51.0 MEAN CORPUSCULAR VOLUME (BEAKER) (test xbix=335) 92.0 fL 79.0-92.2 MEAN CORPUSCULAR HEMOGLOBIN (BEAKER) (test 28.1 pg 25.7-32.2 vpov=179) MEAN CORPUSCULAR HEMOGLOBIN CONC (BEAKER) (test 30.6 GM/DL 32.3-36.5 nket=469) RED CELL DISTRIBUTION WIDTH (BEAKER) (test 18.5 % 11.6-14.4 dmxb=333) PLATELET COUNT (BEAKER) (test bsyt=931) 276 K/CU MM 150-450 MEAN PLATELET VOLUME (BEAKER) (test wnmf=063) 9.1 fL 9.4-12.4 NUCLEATED RED BLOOD CELLS (BEAKER) (test 0 /100 WBC 0-0 niac=143) (MANUAL DIFFERENTIAL)2019-03-09 12:20:00 Test Item Value Reference Range Comments NEUTROPHILS - REL (DIFF) (BEAKER) (test kyma=1977) 67 % LYMPHOCYTES - REL (DIFF) (BEAKER) (test jaiq=5137) 15 % MONOCYTES - REL (DIFF) (BEAKER) (test firo=0896) 13 % EOSINOPHILS - REL (DIFF) (BEAKER) (test udha=9779) 2 % BASOPHILS - REL (DIFF) (BEAKER) (test rnen=8562) 0 % METAMYELOCYTES-REL (DIFF) (BEAKER) (test oijh=822) 1 % 0-0 MYELOCYTES-REL (DIFF) (BEAKER) (test pnfq=6204) 2 % 0-0 NEUTROPHILS - ABS (DIFF) (BEAKER) (test awhs=8108) 4.69 K/ L 1.80-8.00 LYMPHOCYTES - ABS (DIFF) (BEAKER) (test qpay=1675) 1.05 K/ L 1.48-4.50 MONOCYTES - ABS (DIFF) (BEAKER) (test ppqt=0461) 0.91 K/ L 0.00-1.30 EOSINOPHILS - ABS (DIFF) (BEAKER) (test lbis=6214) 0.14 K/ L 0.00-0.50 BASOPHILS - ABS (DIFF) (BEAKER) (test dmrc=1839) 0.00 K/ L 0.00-0.20 METAMYELOCTYES - ABS (DIFF) (BEAKER) (test 0.07 K/ L 0.00-0.00 mymx=478) MYELOCYTES-ABS (DIFF) (BEAKER) (test tamc=8988) 0.14 K/ L 0.00-0.00 TOTAL COUNTED (BEAKER) (test gtlo=5480) 100 WBC MORPHOLOGY (BEAKER) (test wqab=472) Normal PLT MORPHOLOGY (BEAKER) (test bxli=729) Normal ANISOCYTOSIS (BEAKER) (test ysie=346) 1+ few ELLIPTOCYTES (BEAKER) (test pajm=799) 1+ few BODY FLUID CULTURE + GRAM [id number] 10:31:00 Test Item Value Reference Range Comments CULTURE (BEAKER) (test ESCHERICHIA COLI 4+ Escherichia coli aonu=3678) Amikacin (test code=1) Ampicillin + Sulbactam (test code=6) Aztreonam (test code=32) Cefepime (test code=51) Cefoxitin (test code=68) Ceftazidime (test code=27) Ceftriaxone (test code=52) Ertapenem (test code=38) Gentamicin (test code=18) Levofloxacin (test code=22) Meropenem (test code=34) Nitrofurantoin (test code=23) Piperacillin + Tazobactam (test code=29) Tetracycline (test code=2) Tobramycin (test code=25) Trimethoprim + Sulfamethoxazole (test code=47) CULTURE (BEAKER) (test 4+ Streptococcus uqlq=9124) anginosus GRAM STAIN RESULT (BEAKER) 1+ WBCs (test kdaf=4235) GRAM STAIN RESULT (BEAKER) No organisms seen (test xwjp=142050) BASIC METABOLIC [id number] 06:40:00 Test Item Value Reference Range Comments SODIUM (BEAKER) (test 136 meq/L 136-145 cjdj=885) POTASSIUM (BEAKER) (test 3.7 meq/L 3.5-5.1 rbrp=097) CHLORIDE (BEAKER) (test 103 meq/L 98-107 jggb=563) CO2 (BEAKER) (test 28 meq/L 22-29 kphw=493) BLOOD UREA NITROGEN 7 mg/dL 7-21 (BEAKER) (test spnw=254) CREATININE (BEAKER) (test 0.74 mg/dL 0.57-1.25 whlh=779) GLUCOSE RANDOM (BEAKER) 105 mg/dL 70-105 (test hhbn=244) CALCIUM (BEAKER) (test 8.9 mg/dL 8.4-10.2 yibw=581) EGFR (BEAKER) (test 106 mL/min/1.73 sq m ESTIMATED GFR IS NOT ecyj=3817) ACCURATE CREATININE CLEARANCE IN PREDICTING GLOMERULAR FILTRATION RATE. ESTIMATED GFR IS NOT APPLICABLE FOR DIALYSIS PATIENTS. CBC W/PLT COUNT & AUTO [id number] 08:03:00 Test Item Value Reference Range Comments WHITE BLOOD CELL COUNT (BEAKER) (test knjc=554) 7.2 K/ L 3.5-10.5 RED BLOOD CELL COUNT (BEAKER) (test bzzz=488) 3.13 M/ L 4.63-6.08 HEMOGLOBIN (BEAKER) (test mbha=293) 8.9 GM/DL 13.7-17.5 HEMATOCRIT (BEAKER) (test tons=535) 28.4 % 40.1-51.0 MEAN CORPUSCULAR VOLUME (BEAKER) (test lobh=038) 90.7 fL 79.0-92.2 MEAN CORPUSCULAR HEMOGLOBIN (BEAKER) (test 28.4 pg 25.7-32.2 nzpe=254) MEAN CORPUSCULAR HEMOGLOBIN CONC (BEAKER) (test 31.3 GM/DL 32.3-36.5 afym=738) RED CELL DISTRIBUTION WIDTH (BEAKER) (test 18.6 % 11.6-14.4 rvpj=592) PLATELET COUNT (BEAKER) (test bypy=083) 279 K/CU MM 150-450 MEAN PLATELET VOLUME (BEAKER) (test hyip=555) 9.0 fL 9.4-12.4 NUCLEATED RED BLOOD CELLS (BEAKER) (test 0 /100 WBC 0-0 lctv=789) (CELLAVISION MANUAL DIFF)2019-03-08 08:03:00 Test Item Value Reference Range Comments NEUTROPHILS - REL (CELLAVISION)(BEAKER) (test 70 % zmaf=8271) LYMPHOCYTES - REL (CELLAVISION)(BEAKER) (test 15 % quld=5359) MONOCYTES - REL (CELLAVISION)(BEAKER) (test 8 % lqci=3904) EOSINOPHILS - REL (CELLAVISION)(BEAKER) (test 1 % bumh=6684) METAMYELOCYTES - REL (CELLAVISION)(BEAKER) (test 2 % 0-0 qdgo=6122) MYELOCYTES - REL (CELLAVISION)(BEAKER) (test 2 % 0-0 oess=6253) BANDS - REL (CELLAVISION)(BEAKER) (test 1 % 0-10 tcrk=6134) NEUTROPHILS - ABS (CELLAVISION)(BEAKER) (test 5.04 K/ul 1.78-5.38 ljif=3199) LYMPHOCYTES - ABS (CELLAVISION)(BEAKER) (test 1.08 K/ul 1.32-3.57 dasc=3888) MONOCYTES - ABS (CELLAVISION)(BEAKER) (test 0.58 K/uL 0.30-0.82 clfp=5389) EOSINOPHILS - ABS (CELLAVISION)(BEAKER) (test 0.07 K/uL 0.04-0.54 rcdq=6303) METAMYELOCYTES - ABS (CELLAVISION)(BEAKER) (test 0.14 K/uL 0.00-0.00 cokp=1555) MYELOCYTES-ABS (CELLAVISION)(BEAKER) (test 0.14 K/uL 0.00-0.00 iwyo=9734) BANDS - ABS (CELLAVISION)(BEAKER) (test 0.07 K/uL 0.00-0.80 tslk=0228) TOTAL COUNTED (BEAKER) (test jtwx=9095) 100 WBC MORPHOLOGY (BEAKER) (test llrt=401) Normal PLT MORPHOLOGY (BEAKER) (test kkej=580) Normal ANISOCYTOSIS (BEAKER) (test ztyw=454) 2+ moderate MICROCYTES (BEAKER) (test qmeq=764) 2+ moderate POIKILOCYTES (BEAKER) (test iycn=222) 1+ few OVALOCYTES (BEAKER) (test bsil=347) 1+ few ARTIFACT (CELLAVISION)(BEAKER) (test gzqf=1488) Present PLATELET CONCENTRATION (CELLAVISION)(BEAKER) Adequate (test mnzk=0917) Received comment: User comments: Slide comments:BASIC METABOLIC [id number] 07:30:00 Test Item Value Reference Range Comments SODIUM (BEAKER) (test 135 meq/L 136-145 ftfe=591) POTASSIUM (BEAKER) (test 4.0 meq/L 3.5-5.1 dfgi=961) CHLORIDE (BEAKER) (test 102 meq/L 98-107 hhjf=159) CO2 (BEAKER) (test 28 meq/L 22-29 pwjh=055) BLOOD UREA NITROGEN 8 mg/dL 7-21 (BEAKER) (test hwbj=457) CREATININE (BEAKER) (test 0.75 mg/dL 0.57-1.25 mqhr=735) GLUCOSE RANDOM (BEAKER) 87 mg/dL 70-105 (test bwwx=793) CALCIUM (BEAKER) (test 9.0 mg/dL 8.4-10.2 upnw=377) EGFR (BEAKER) (test 104 mL/min/1.73 sq m ESTIMATED GFR IS NOT sqxv=2839) ACCURATE CREATININE CLEARANCE IN PREDICTING GLOMERULAR FILTRATION RATE. ESTIMATED GFR IS NOT APPLICABLE FOR DIALYSIS PATIENTS. U/S, ASPIRATION/[id number] 17:48:00Reason for exam:->aspiration of liver abscess, please send for aerobic and anaerobic culturesFINAL REPORT Ultrasound-guided right hepatic abscess aspiration. History: Hepatic abscess. Modality: Ultrasound Sedation: Versed 1.0 mg and fentanyl 50 mcg was given intravenously for conscious sedation. Vital signs were monitored throughout the procedure by a nurse, and remained stable. Physician intra-service time was 15 minutes. Anesthesia: Two percent Lidocaine without epinephrine. Approach: Right hepatic lobe Estimated blood loss:< 5 cc. Specimen: 100 mL of purulent material. carbon furnace operator: Jozef Pryor MD. [employer] Operations Engineer: None. Technique: Informed written consent was obtained. Discussion of risks, benefits, and alternatives were made with the patient. The patient expressed understanding and agreed to proceed. A universal timeout was performed prior to starting the procedure. Scratch that A pulmonary ultrasound of thepatient's liver was performed which revealed approximately 5.3 x 6.6 cm complex fluid collection in the right hepatic lobe. This fluid collection was targeted for ultrasound-guided aspiration. The patient 's skin was marked, prepped with correcting, draped in usual sterile fashion. Local anesthesia wasachieved with lidocaine 2%. Under direct ultrasound guidance a 5 [place] one-step centesis catheter was advanced into the collection via a subcostal approach approach. Once the one-step catheter was within the collection inner stylette was removed and 100 mL of purulent material was aspirated and sent for culture. The catheter was then removed. The patient tolerated the procedure well. The skin entry site was dressed with sterile Band- Aid. Impression: Technically successful and uncomplicated ultrasound guided right hepatic abscess aspiration. Signed: Jozef Pryor MDReport Verified Date/ Time: 03/07/2019 17:48:07 Reading Location: [place] [address] Angio Body Reading Room [facility] METABOLIC [id number] 09:54:00 Test Item Value Reference Range Comments SODIUM (BEAKER) (test 134 meq/L 136-145 exit=716) POTASSIUM (BEAKER) (test 3.4 meq/L 3.5-5.1 naxt=516) CHLORIDE (BEAKER) (test 99 meq/L 98-107 nasj=933) CO2 (BEAKER) (test 27 meq/L 22-29 lnuv=909) BLOOD UREA NITROGEN 6 mg/dL 7-21 (BEAKER) (test zvts=889) CREATININE (BEAKER) (test 0.77 mg/dL 0.57-1.25 msxe=279) GLUCOSE RANDOM (BEAKER) 88 mg/dL 70-105 (test urcq=738) CALCIUM (BEAKER) (test 8.9 mg/dL 8.4-10.2 hypo=746) EGFR (BEAKER) (test 101 mL/min/1.73 sq m ESTIMATED GFR IS NOT zvmo=6211) ACCURATE CREATININE CLEARANCE IN PREDICTING GLOMERULAR FILTRATION RATE. ESTIMATED GFR IS NOT APPLICABLE FOR DIALYSIS PATIENTS. CREATINE KINASE (CK)2019-03-07 09:54:00 Test Item Value Reference Range Comments CREATINE KINASE TOTAL (BEAKER) (test vvke=878) 20 U/L 29-200 CBC W/PLT COUNT & AUTO [id number] 09:43:00 Test Item Value Reference Range Comments WHITE BLOOD CELL COUNT (BEAKER) (test wnsg=872) 10.8 K/ L 3.5-10.5 RED BLOOD CELL COUNT (BEAKER) (test wrwp=970) 3.31 M/ L 4.63-6.08 HEMOGLOBIN (BEAKER) (test pgit=589) 9.4 GM/DL 13.7-17.5 HEMATOCRIT (BEAKER) (test lvkx=057) 29.7 % 40.1-51.0 MEAN CORPUSCULAR VOLUME (BEAKER) (test xfgi=176) 89.7 fL 79.0-92.2 MEAN CORPUSCULAR HEMOGLOBIN (BEAKER) (test 28.4 pg 25.7-32.2 segb=321) MEAN CORPUSCULAR HEMOGLOBIN CONC (BEAKER) (test 31.6 GM/DL 32.3-36.5 fuqn=052) RED CELL DISTRIBUTION WIDTH (BEAKER) (test 18.0 % 11.6-14.4 flqu=051) PLATELET COUNT (BEAKER) (test rvqy=103) 285 K/CU MM 150-450 MEAN PLATELET VOLUME (BEAKER) (test rzbx=342) 9.2 fL 9.4-12.4 NUCLEATED RED BLOOD CELLS (BEAKER) (test 0 /100 WBC 0-0 mfqu=790) (CELLAVISION MANUAL DIFF)2019-03-07 09:43:00 Test Item Value Reference Range Comments NEUTROPHILS - REL (CELLAVISION)(BEAKER) (test 75 % ylsq=2969) LYMPHOCYTES - REL (CELLAVISION)(BEAKER) (test 8 % gosg=5322) MONOCYTES - REL (CELLAVISION)(BEAKER) (test 16 % egxh=7242) EOSINOPHILS - REL (CELLAVISION)(BEAKER) (test 1 % chai=6249) NEUTROPHILS - ABS (CELLAVISION)(BEAKER) (test 8.10 K/ul 1.78-5.38 slcw=2563) LYMPHOCYTES - ABS (CELLAVISION)(BEAKER) (test 0.86 K/ul 1.32-3.57 dauj=5659) MONOCYTES - ABS (CELLAVISION)(BEAKER) (test 1.73 K/uL 0.30-0.82 finm=0199) EOSINOPHILS - ABS (CELLAVISION)(BEAKER) (test 0.11 K/uL 0.04-0.54 xxbg=8702) TOTAL COUNTED (BEAKER) (test ialf=7858) 100 MANUAL NRBC PER 100 CELLS (BEAKER) (test 1 /100 WBC 0-0 rzda=2086) WBC MORPHOLOGY (BEAKER) (test awsq=357) Normal PLT MORPHOLOGY (BEAKER) (test jkqa=300) Normal POLYCHROMATOPHILLIC RBCS(BEAKER) (test ixyc=027) 1+ few OVALOCYTES (BEAKER) (test rwlv=168) 1+ few ARTIFACT (CELLAVISION)(BEAKER) (test jark=4920) Present PLATELET CONCENTRATION (CELLAVISION)(BEAKER) Adequate (test kwqv=3952) Received comment: User comments: Slide comments:BLOOD [id number] 02:02:00 Test Item Value Reference Range Comments CULTURE (BEAKER) (test aykj=8409) No growth in 5 days BLOOD [id number] 02:02:00 Test Item Value Reference Range Comments CULTURE (BEAKER) (test umpd=1468) No growth in 5 days [id number] 15:37:00 Test Item Value Reference Range Comments PROTIME (BEAKER) (test ckji=736) 14.3 seconds 11.9-14.2 INR (BEAKER) (test mbnq=319) 1.2 <=5.9 PARTIAL THROMBOPLASTIN TIME (BEAKER) (test 37.3 seconds 22.5-36.0 ydbi=007) Effective 10/27/2018: PT Reference Range ChangeNew: 11.9-14.2 Previous: 11.7- 14.7RECOMMENDED COUMADIN/WARFARIN INR THERAPY RANGESSTANDARD DOSE: 2.0-3.0 Includes: PROPHYLAXIS for venous thrombosis, systemic embolization; TREATMENT for venous thrombosis and/or pulmonary embolus.HIGH RISK: Target INR is2.5-3.5 for patients wiht mechanical heart valves.CBC W/PLT COUNT & AUTO [id number] 07:59:00 Test Item Value Reference Range Comments WHITE BLOOD CELL COUNT (BEAKER) (test fwif=640) 12.3 K/ L 3.5-10.5 RED BLOOD CELL COUNT (BEAKER) (test xmot=324) 3.11 M/ L 4.63-6.08 HEMOGLOBIN (BEAKER) (test ojle=214) 8.9 GM/DL 13.7-17.5 HEMATOCRIT (BEAKER) (test jcyk=354) 27.2 % 40.1-51.0 MEAN CORPUSCULAR VOLUME (BEAKER) (test cstf=243) 87.5 fL 79.0-92.2 MEAN CORPUSCULAR HEMOGLOBIN (BEAKER) (test 28.6 pg 25.7-32.2 sdlf=274) MEAN CORPUSCULAR HEMOGLOBIN CONC (BEAKER) (test 32.7 GM/DL 32.3-36.5 nthp=227) RED CELL DISTRIBUTION WIDTH (BEAKER) (test 17.7 % 11.6-14.4 ryxk=471) PLATELET COUNT (BEAKER) (test ssva=019) 283 K/CU MM 150-450 MEAN PLATELET VOLUME (BEAKER) (test jkti=535) 9.3 fL 9.4-12.4 NUCLEATED RED BLOOD CELLS (BEAKER) (test 0 /100 WBC 0-0 pdrm=926) (CELLAVISION MANUAL DIFF)2019-03-06 07:59:00 Test Item Value Reference Range Comments NEUTROPHILS - REL (CELLAVISION)(BEAKER) (test 80 % pixb=2203) LYMPHOCYTES - REL (CELLAVISION)(BEAKER) (test 9 % rpxg=7709) MONOCYTES - REL (CELLAVISION)(BEAKER) (test 10 % eevi=6225) MYELOCYTES - REL (CELLAVISION)(BEAKER) (test 1 % 0-0 wbht=2597) NEUTROPHILS - ABS (CELLAVISION)(BEAKER) (test 9.84 K/ul 1.78-5.38 dhxt=8356) LYMPHOCYTES - ABS (CELLAVISION)(BEAKER) (test 1.11 K/ul 1.32-3.57 lbyo=7350) MONOCYTES - ABS (CELLAVISION)(BEAKER) (test 1.23 K/uL 0.30-0.82 kgwu=1205) MYELOCYTES-ABS (CELLAVISION)(BEAKER) (test 0.12 K/uL 0.00-0.00 gond=8408) TOTAL COUNTED (BEAKER) (test fbpl=0307) 100 WBC MORPHOLOGY (BEAKER) (test ppuc=922) Normal PLT MORPHOLOGY (BEAKER) (test vwum=320) Normal POLYCHROMATOPHILLIC RBCS(BEAKER) (test chcj=716) 1+ few POIKILOCYTES (BEAKER) (test qria=746) 1+ few OVALOCYTES (BEAKER) (test utvl=170) 1+ few ARTIFACT (CELLAVISION)(BEAKER) (test qflb=9625) Present PLATELET CONCENTRATION (CELLAVISION)(BEAKER) (test Adequate deyl=9973) Received comment: User comments: Slide comments:BASIC METABOLIC [id number] 06:47:00 Test Item Value Reference Range Comments SODIUM (BEAKER) (test 136 meq/L 136-145 youn=032) POTASSIUM (BEAKER) (test 3.7 meq/L 3.5-5.1 Specimen slightly gjjn=311) hemolyzed CHLORIDE (BEAKER) (test 101 meq/L 98-107 nmdy=301) CO2 (BEAKER) (test 28 meq/L 22-29 ksnq=813) BLOOD UREA NITROGEN 7 mg/dL 7-21 (BEAKER) (test hrol=519) CREATININE (BEAKER) (test 0.83 mg/dL 0.57-1.25 Specimen slightly qjvl=126) hemolyzed GLUCOSE RANDOM (BEAKER) 92 mg/dL 70-105 (test jyqa=092) CALCIUM (BEAKER) (test 8.8 mg/dL 8.4-10.2 wsza=672) EGFR (BEAKER) (test 93 mL/min/1.73 sq m ESTIMATED GFR IS NOT dgxb=2120) ACCURATE CREATININE CLEARANCE IN PREDICTING GLOMERULAR FILTRATION RATE. ESTIMATED GFR IS NOT APPLICABLE FOR DIALYSIS PATIENTS. CT, ABDOMEN, WITH [id number] 16:22:00Reason for exam:->Follow-up liver abscessFINAL REPORT INDICATION:Follow-up for liver abscess. COMPARISON: March 01, [id number] TECHNIQUE: CT of the Abdomen WITH intravenous contrast. Enteric contrast was used.The exam was performed according to our department dose-optimization protocol, which includes automated exposure control, adjustments of mA and kV according to patient size. Iterative reconstructions are also sometimes employed. FINDINGS: Liver anterior segment subcapsular collection with subtle surrounding edema has increased in size. It now measures 6.0 x 4.2 cm and measured 4.9 x 3.1 cm on March 01. Pancreatic head mass, representing known pancreas cancer, is partially obscured by metallic stent in the common bile duct. Pancreatic ductal dilatation and atrophy again noted and in keeping with pancreas cancer. In the liver posterior segment there is a 1.4 cm hypodensity with slight surrounding edema suspicious for liver metastasis. It has increased in size from 1.0 cm compared to January 13. Central to the anterior segment liver abscess is a 0.9 cm hypodensity which is new since January 13 and suspicious for new liver metastasis. Mild intrahepatic biliary ductal dilatation again demonstrated. Spleen, adrenal glands, and kidneys unremarkable. Increase in stool burden in the colon noted. Lower thorax notable for emphysema and tiny right pleural effusion. No suspicious osseous lesion demonstrated. IMPRESSION: Enlarging liver anterior segment abscess, now measuring 6 cm. Pancreas cancer with worsening liver metastases. Signed: Joseph Rincon MDReport Verified Date/Time : 03/05/2019 16:22:16 Reading Location: [facility] [id number] [facility] Consult Reading Room 04: 22 PMCBC W/PLT COUNT & AUTO [id number] 09:40:00 Test Item Value Reference Range Comments WHITE BLOOD CELL COUNT (BEAKER) (test intw=332) 10.2 K/ L 3.5-10.5 RED BLOOD CELL COUNT (BEAKER) (test qnsh=095) 2.99 M/ L 4.63-6.08 HEMOGLOBIN (BEAKER) (test lymq=077) 8.5 GM/DL 13.7-17.5 HEMATOCRIT (BEAKER) (test oqkt=014) 26.2 % 40.1-51.0 MEAN CORPUSCULAR VOLUME (BEAKER) (test rdgw=192) 87.6 fL 79.0-92.2 MEAN CORPUSCULAR HEMOGLOBIN (BEAKER) (test 28.4 pg 25.7-32.2 qezd=485) MEAN CORPUSCULAR HEMOGLOBIN CONC (BEAKER) (test 32.4 GM/DL 32.3-36.5 nwpt=520) RED CELL DISTRIBUTION WIDTH (BEAKER) (test 17.3 % 11.6-14.4 htzl=077) PLATELET COUNT (BEAKER) (test grei=093) 252 K/CU MM 150-450 MEAN PLATELET VOLUME (BEAKER) (test bkmq=586) 9.3 fL 9.4-12.4 NUCLEATED RED BLOOD CELLS (BEAKER) (test 0 /100 WBC 0-0 eeow=336) (CELLAVISION MANUAL DIFF)2019-03-05 09:40:00 Test Item Value Reference Range Comments NEUTROPHILS - REL (CELLAVISION)(BEAKER) (test 83 % xuym=4367) LYMPHOCYTES - REL (CELLAVISION)(BEAKER) (test 4 % smri=0461) MONOCYTES - REL (CELLAVISION)(BEAKER) (test 11 % gavj=2334) BANDS - REL (CELLAVISION)(BEAKER) (test wghu=1038) 2 % 0-10 NEUTROPHILS - ABS (CELLAVISION)(BEAKER) (test 8.47 K/ul 1.78-5.38 jcda=2131) LYMPHOCYTES - ABS (CELLAVISION)(BEAKER) (test 0.41 K/ul 1.32-3.57 nztd=8046) MONOCYTES - ABS (CELLAVISION)(BEAKER) (test 1.12 K/uL 0.30-0.82 uiod=7300) BANDS - ABS (CELLAVISION)(BEAKER) (test yyiw=4974) 0.20 K/uL 0.00-0.80 TOTAL COUNTED (BEAKER) (test oevv=7561) 100 WBC MORPHOLOGY (BEAKER) (test xkug=239) Normal PLT MORPHOLOGY (BEAKER) (test xbzr=827) Normal POIKILOCYTES (BEAKER) (test rusk=294) 1+ few OVALOCYTES (BEAKER) (test irgt=182) 1+ few BASOPHILIC STIPPLING (BEAKER) (test kgll=543) Present ARTIFACT (CELLAVISION)(BEAKER) (test qbnp=5903) Present PLATELET CONCENTRATION (CELLAVISION)(BEAKER) (test Adequate mtvl=5863) Received comment: User comments: Slide comments:BASIC METABOLIC [id number] 06:32:00 Test Item Value Reference Range Comments SODIUM (BEAKER) (test 132 meq/L 136-145 ajgz=011) POTASSIUM (BEAKER) (test 3.6 meq/L 3.5-5.1 pmit=421) CHLORIDE (BEAKER) (test 99 meq/L 98-107 aefs=386) CO2 (BEAKER) (test 28 meq/L 22-29 rceg=485) BLOOD UREA NITROGEN 7 mg/dL 7-21 (BEAKER) (test spau=508) CREATININE (BEAKER) (test 0.81 mg/dL 0.57-1.25 gcaw=025) GLUCOSE RANDOM (BEAKER) 93 mg/dL 70-105 (test fkjd=758) CALCIUM (BEAKER) (test 9.1 mg/dL 8.4-10.2 gcdi=569) EGFR (BEAKER) (test 95 mL/min/1.73 sq m ESTIMATED GFR IS NOT wbej=3550) ACCURATE CREATININE CLEARANCE IN PREDICTING GLOMERULAR FILTRATION RATE. ESTIMATED GFR IS NOT APPLICABLE FOR DIALYSIS PATIENTS. VANCOMYCIN LEVEL, [id number] 08:40:00 Test Item Value Reference Range Comments VANCOMYCIN TROUGH (BEAKER) (test qeos=701) 13.1 ug/mL 10.0-20.0 IMMEDIATELY PRIOR TO NEXT DOSECBC W/PLT COUNT & AUTO [id number] 07:15:00 Test Item Value Reference Range Comments WHITE BLOOD CELL COUNT (BEAKER) (test foih=562) 7.9 K/ L 3.5-10.5 RED BLOOD CELL COUNT (BEAKER) (test kiua=326) 3.00 M/ L 4.63-6.08 HEMOGLOBIN (BEAKER) (test uhkm=641) 8.6 GM/DL 13.7-17.5 HEMATOCRIT (BEAKER) (test yuoi=459) 26.7 % 40.1-51.0 MEAN CORPUSCULAR VOLUME (BEAKER) (test wymc=159) 89.0 fL 79.0-92.2 MEAN CORPUSCULAR HEMOGLOBIN (BEAKER) (test 28.7 pg 25.7-32.2 vpmx=452) MEAN CORPUSCULAR HEMOGLOBIN CONC (BEAKER) (test 32.2 GM/DL 32.3-36.5 mzwt=173) RED CELL DISTRIBUTION WIDTH (BEAKER) (test 17.2 % 11.6-14.4 mtqo=459) PLATELET COUNT (BEAKER) (test wwce=756) 257 K/CU MM 150-450 MEAN PLATELET VOLUME (BEAKER) (test plai=882) 9.2 fL 9.4-12.4 NUCLEATED RED BLOOD CELLS (BEAKER) (test 0 /100 WBC 0-0 jllh=021) (CELLAVISION MANUAL DIFF)2019-03-04 07:15:00 Test Item Value Reference Range Comments NEUTROPHILS - REL (CELLAVISION)(BEAKER) (test 77 % fjky=0677) LYMPHOCYTES - REL (CELLAVISION)(BEAKER) (test 6 % hakl=4179) MONOCYTES - REL (CELLAVISION)(BEAKER) (test 13 % fucn=6982) BASOPHILS - REL (CELLAVISION)(BEAKER) (test 1 % wcdw=8604) BANDS - REL (CELLAVISION)(BEAKER) (test qccm=6820) 3 % 0-10 NEUTROPHILS - ABS (CELLAVISION)(BEAKER) (test 6.08 K/ul 1.78-5.38 cnul=7540) LYMPHOCYTES - ABS (CELLAVISION)(BEAKER) (test 0.47 K/ul 1.32-3.57 slzf=1884) MONOCYTES - ABS (CELLAVISION)(BEAKER) (test 1.03 K/uL 0.30-0.82 aykq=6376) BASOPHILS - ABS (CELLAVISION)(BEAKER) (test 0.08 K/uL 0.01-0.08 waib=3582) BANDS - ABS (CELLAVISION)(BEAKER) (test stbc=6661) 0.24 K/uL 0.00-0.80 TOTAL COUNTED (BEAKER) (test edsm=2776) 100 WBC MORPHOLOGY (BEAKER) (test isbr=018) Normal PLT MORPHOLOGY (BEAKER) (test jikd=328) Normal POIKILOCYTES (BEAKER) (test kkub=518) 1+ few OVALOCYTES (BEAKER) (test kzpo=324) 1+ few ARTIFACT (CELLAVISION)(BEAKER) (test unie=9890) Present PLATELET CONCENTRATION (CELLAVISION)(BEAKER) (test Adequate dbnr=4799) Received comment: User comments: Slide comments:COMPREHENSIVE METABOLIC [id number] 06:15:00 Test Item Value Reference Range Comments TOTAL PROTEIN (BEAKER) 5.5 gm/dL 6.0-8.3 (test olao=768) ALBUMIN (BEAKER) (test 2.8 g/dL 3.5-5.0 wrij=5773) ALKALINE PHOSPHATASE 202 U/L 40-150 (BEAKER) (test kzmj=565) BILIRUBIN TOTAL (BEAKER) 0.6 mg/dL 0.2-1.2 (test vvrm=356) SODIUM (BEAKER) (test 132 meq/L 136-145 jqon=173) POTASSIUM (BEAKER) (test 3.8 meq/L 3.5-5.1 attp=603) CHLORIDE (BEAKER) (test 99 meq/L 98-107 agup=621) CO2 (BEAKER) (test 27 meq/L 22-29 psrn=977) BLOOD UREA NITROGEN 10 mg/dL 7-21 (BEAKER) (test nqga=127) CREATININE (BEAKER) (test 0.85 mg/dL 0.57-1.25 njus=149) GLUCOSE RANDOM (BEAKER) 85 mg/dL 70-105 (test ubvp=024) CALCIUM (BEAKER) (test 8.9 mg/dL 8.4-10.2 qdqv=852) AST (SGOT) (BEAKER) (test 36 U/L 5-34 uxtu=959) ALT (SGPT) (BEAKER) (test 33 U/L 6-55 amoa=050) EGFR (BEAKER) (test 90 mL/min/1.73 sq m ESTIMATED GFR IS NOT xuhr=0142) ACCURATE CREATININE CLEARANCE IN PREDICTING GLOMERULAR FILTRATION RATE. ESTIMATED GFR IS NOT APPLICABLE FOR DIALYSIS PATIENTS. TSH/FREE T4 IF [id number] 07:39:00 Test Item Value Reference Range Comments THYROID STIMULATING HORMONE (BEAKER) (test 4.92 uIU/mL 0.35-4.94 oqtw=963) [id number] 07:19:00 Test Item Value Reference Range Comments PHOSPHORUS (BEAKER) (test oter=518) 3.1 mg/dL 2.3-4.7 [id number] 07:19:00 Test Item Value Reference Range Comments MAGNESIUM (BEAKER) (test kdst=605) 1.8 mg/dL 1.6-2.6 COMPREHENSIVE METABOLIC [id number] 07:19:00 Test Item Value Reference Range Comments TOTAL PROTEIN (BEAKER) 5.4 gm/dL 6.0-8.3 (test bdjp=326) ALBUMIN (BEAKER) (test 2.8 g/dL 3.5-5.0 xrcl=0559) ALKALINE PHOSPHATASE 178 U/L 40-150 (BEAKER) (test ydbw=123) BILIRUBIN TOTAL (BEAKER) 0.7 mg/dL 0.2-1.2 (test hjnk=528) SODIUM (BEAKER) (test 132 meq/L 136-145 xgrq=537) POTASSIUM (BEAKER) (test 3.9 meq/L 3.5-5.1 cjil=520) CHLORIDE (BEAKER) (test 102 meq/L 98-107 mzoh=683) CO2 (BEAKER) (test 26 meq/L 22-29 qorj=599) BLOOD UREA NITROGEN 11 mg/dL 7-21 (BEAKER) (test lkpe=008) CREATININE (BEAKER) (test 0.85 mg/dL 0.57-1.25 vsmr=780) GLUCOSE RANDOM (BEAKER) 84 mg/dL 70-105 (test spcz=261) CALCIUM (BEAKER) (test 9.0 mg/dL 8.4-10.2 tihr=337) AST (SGOT) (BEAKER) (test 21 U/L 5-34 betw=814) ALT (SGPT) (BEAKER) (test 25 U/L 6-55 feog=099) EGFR (BEAKER) (test 90 mL/min/1.73 sq m ESTIMATED GFR IS NOT drwx=4005) ACCURATE CREATININE CLEARANCE IN PREDICTING GLOMERULAR FILTRATION RATE. ESTIMATED GFR IS NOT APPLICABLE FOR DIALYSIS PATIENTS. CBC W/PLT COUNT & AUTO [id number] 06:23:00 Test Item Value Reference Range Comments WHITE BLOOD CELL COUNT (BEAKER) (test wudu=472) 7.0 K/ L 3.5-10.5 RED BLOOD CELL COUNT (BEAKER) (test glel=641) 2.88 M/ L 4.63-6.08 HEMOGLOBIN (BEAKER) (test apqc=470) 8.2 GM/DL 13.7-17.5 HEMATOCRIT (BEAKER) (test koks=784) 25.5 % 40.1-51.0 MEAN CORPUSCULAR VOLUME (BEAKER) (test pwqf=244) 88.5 fL 79.0-92.2 MEAN CORPUSCULAR HEMOGLOBIN (BEAKER) (test 28.5 pg 25.7-32.2 mykl=039) MEAN CORPUSCULAR HEMOGLOBIN CONC (BEAKER) (test 32.2 GM/DL 32.3-36.5 kzhb=128) RED CELL DISTRIBUTION WIDTH (BEAKER) (test 17.6 % 11.6-14.4 ybmb=803) PLATELET COUNT (BEAKER) (test teyn=055) 311 K/CU MM 150-450 MEAN PLATELET VOLUME (BEAKER) (test jirg=445) 9.6 fL 9.4-12.4 NUCLEATED RED BLOOD CELLS (BEAKER) (test 0 /100 WBC 0-0 bbij=607) NEUTROPHILS RELATIVE PERCENT (BEAKER) (test 70 % gqsu=971) LYMPHOCYTES RELATIVE PERCENT (BEAKER) (test 12 % itnz=622) MONOCYTES RELATIVE PERCENT (BEAKER) (test 15 % seph=728) EOSINOPHILS RELATIVE PERCENT (BEAKER) (test 0 % iksm=004) BASOPHILS RELATIVE PERCENT (BEAKER) (test 0 % balp=300) NEUTROPHILS ABSOLUTE COUNT (BEAKER) (test 4.93 K/ L 1.78-5.38 evug=113) LYMPHOCYTES ABSOLUTE COUNT (BEAKER) (test 0.86 K/ L 1.32-3.57 zszz=440) MONOCYTES ABSOLUTE COUNT (BEAKER) (test 1.08 K/ L 0.30-0.82 wkpl=408) EOSINOPHILS ABSOLUTE COUNT (BEAKER) (test 0.00 K/ L 0.04-0.54 oppm=700) BASOPHILS ABSOLUTE COUNT (BEAKER) (test 0.02 K/ L 0.01-0.08 lzfw=639) IMMATURE GRANULOCYTES-RELATIVE PERCENT (BEAKER) 2 % 0-1 (test ggij=3879) URINALYSIS W/ REFLEX URINE [id number] 00:35:00 Test Item Value Reference Range Comments COLOR (BEAKER) (test ynci=100) Yellow CLARITY (BEAKER) (test vzhj=710) Cloudy SPECIFIC GRAVITY UA (BEAKER) (test hgof=621) 1.014 1.001-1.035 PH UA (BEAKER) (test enyu=602) 8.5 5.0-8.0 PROTEIN UA (BEAKER) (test rbtl=971) 20 mg/dL Negative GLUCOSE UA (BEAKER) (test wqih=314) Negative Negative KETONES UA (BEAKER) (test rnfg=371) Negative Negative BILIRUBIN UA (BEAKER) (test shkg=171) Negative Negative BLOOD UA (BEAKER) (test zwqt=815) Negative Negative NITRITE UA (BEAKER) (test kmni=859) Negative Negative LEUKOCYTE ESTERASE UA (BEAKER) (test iypo=186) Negative Negative UROBILINOGEN UA (BEAKER) (test edxn=441) 0.2 mg/dL 0.2-1.0 RBC UA (BEAKER) (test cscy=282) 0 /HPF WBC UA (BEAKER) (test jasg=227) 0 /HPF MUCUS (BEAKER) (test cvjd=1608) Occasional SQUAMOUS EPITHELIAL (BEAKER) (test gwju=063) < /HPF CALCIUM OXALATE CRYSTALS (BEAKER) (test ytit=530) Moderate AMORPHOUS CRYSTALS (BEAKER) (test xvxq=0736) Occasional YEAST (BEAKER) (test oxde=9572) Many SOURCE(BEAKER) (test jbkr=1334) CT, [id number] 00:30:00Reason for exam:->FEVERReason for exam:-> NAUSEAWhat is the patient's sedation requirement?->No SedationFINAL REPORT CT, ABDOMEN \\T\\ PELVIS, WITH IV CONTRAST INDICATION: Abdominal infection suspectedFEVERNAUSEA COMPARISON: CT abdomen pelvis dated . TECHNIQUE:Post contrast abdomen and pelvis CT. Coronal and sagittal reformatted images obtained. DOSE REDUCTION: Dose modulation, iterative reconstruction, and/or weight-based adjustment of the mA/kV was utilized to reduce the radiation dose to as low as reasonably achievable. FINDINGS: Lower thorax: Moderate paraseptal andcentrilobular emphysematous changes. Discoid atelectasis bilateral lower lobes. Left lingula pulmonary nodule measuring 4 mm. No pleural effusion. Trace pericardial effusion. Heart is normal in size. Liver: Again seen are multiple hypodense hepatic lesions not significantly changed in the interval concerning for metastatic disease. Some of the hypodense hepatic lesions likely represents simple hepatic cysts.. Interval increase in size of the loculated subcapsular fluid collection containing air- fluid level in multiple foci of gas measuring 4.7 x 3.4 x 7.2 cm concerning for subcapsular abscess formation.Gallbladder and biliary tree: Postsurgical changes of cholecystectomy. Metallic biliary stent seen within the common bile duct. Persistent intra and extrahepatic biliary ductal dilatation with extensive pneumobilia.Pancreas: Unchanged peripherally enhancing cystic structure in the pancreatic neckmeasuring 1.3 cm. In seen is distention of the main pancreatic duct. Unchanged hypodensity of the pancreatic head and uncinate stent with adenocarcinoma.Spleen: No acute findingsAdrenal Glands: No acute findings.Kidneys and ureters: No hydronephrosis or nephrolithiasis. 1.7 cm hypodense left lower pole cystBladder and reproductive organs: Unremarkable. Stomach and Duodenum: No significant findings.Small and large intestine: Moderate stool burden throughout the large bowel. The small large bowel are normal in caliber. No abnormal bowel wall thickening.Appendix: Normal. Major vascular structures: Normal aortic caliber. Periportal edema.Peritoneum and retroperitoneum: Unchanged retroperitoneal lymphadenopathy, for example along the left aspect of the aorta measuring 1.1 cm with central necrosis. Unchanged soft tissue stranding in the peritoneum. No free pneumoperitoneum. Skeleton : No acute bonyabnormality. Degenerative changes lower lumbar spine. Additional findings: None. IMPRESSION: Moderate paraseptal and centrilobular emphysematous changes. Unchanged indeterminate 4 mm pulmonary nodule in the lingula. Grossly unchanged hypodense mass in the pancreatic head with retroperitoneal necrotic lymphadenopathy. Metallic common bile duct stent in place with unchanged intraventricular and extrahepatic biliary ductal dilatation and pneumobilia. Interval increase in size of subcapsular fluid collection along right hepatic lobe measuring up to 4.7 cm with internal air- fluid level concerningfor abscess. Unchanged multiple hypodense hepatic lesions which remain indeterminate on this examination Signed: Fede Ty MDReport Verified Date/Time: 03/02/2019 00:30:24 POCT-LACTIC ACID, [id number] 23:53:00 Test Item Value Reference Range Comments POC-LACTIC ACID, VENOUS 1.4 mmol/L 0.9-1.[address] [facility] [address] ([facility]) (test hzsb=5964) [facility] [address] [id number] 22:28:00 Test Item Value Reference Range Comments PROCALCITONIN ([facility]) (test vpyw=2129) 0.44 ng/mL <0.05 SEPSIS RISK (ng/mL)Low: 0.05-0.50Intermediate: 0.51-2.00High: & gt;=2.01TROPONIN [id number] 21:26:00 Test Item Value Reference Range Comments TROPONIN I ([facility]) (test zpld=010) < ng/mL 0.00-0.03 Troponin I (TnI) levels must be interpreted in the context of the presenting symptoms and the clinical findings. Elevated TnI levels indicate myocardial damage, but are not specific for ischemic heart disease. Elevated TnI levels are seen in patients with other cardiac conditions (including myocarditis and congestive heart failure), and slight TnI elevations occur in patients with other conditions, including sepsis, renal failure, acidosis, acute neurological disease, and persistent tachyarrhythmia.CBC W/PLT COUNT & AUTO [id number] 21:23:00 Test Item Value Reference Range Comments WHITE BLOOD CELL COUNT ([facility]) (test iyta=353) 3.9 K/ L 3.5-10.5 RED BLOOD CELL COUNT ([facility]) (test cijf=448) 3.51 M/ L 4.63-6.08 HEMOGLOBIN (BEAKER) (test hias=433) 10.1 GM/DL 13.7-17.5 HEMATOCRIT (BEAKER) (test wovw=877) 31.0 % 40.1-51.0 MEAN CORPUSCULAR VOLUME (BEAKER) (test sslh=913) 88.3 fL 79.0-92.2 MEAN CORPUSCULAR HEMOGLOBIN (BEAKER) (test 28.8 pg 25.7-32.2 kszb=768) MEAN CORPUSCULAR HEMOGLOBIN CONC (BEAKER) (test 32.6 GM/DL 32.3-36.5 joed=567) RED CELL DISTRIBUTION WIDTH (BEAKER) (test 17.5 % 11.6-14.4 ytof=419) PLATELET COUNT (BEAKER) (test hora=555) 528 K/CU MM 150-450 MEAN PLATELET VOLUME (BEAKER) (test bodt=305) 8.9 fL 9.4-12.4 NUCLEATED RED BLOOD CELLS (BEAKER) (test 0 /100 WBC 0-0 leqa=735) (CELLAVISION MANUAL DIFF)2019-03-01 21:23:00 Test Item Value Reference Range Comments NEUTROPHILS - REL (CELLAVISION)(BEAKER) (test 85 % kxoh=1353) LYMPHOCYTES - REL (CELLAVISION)(BEAKER) (test 10 % nhdf=0989) MONOCYTES - REL (CELLAVISION)(BEAKER) (test 4 % jxqr=1474) BANDS - REL (CELLAVISION)(BEAKER) (test egtv=3826) 1 % 0-10 NEUTROPHILS - ABS (CELLAVISION)(BEAKER) (test 3.32 K/ul 1.78-5.38 nfts=1714) LYMPHOCYTES - ABS (CELLAVISION)(BEAKER) (test 0.39 K/ul 1.32-3.57 hagt=5109) MONOCYTES - ABS (CELLAVISION)(BEAKER) (test 0.16 K/uL 0.30-0.82 gdfc=1080) BANDS - ABS (CELLAVISION)(BEAKER) (test btrh=4377) 0.04 K/uL 0.00-0.80 TOTAL COUNTED (BEAKER) (test jbcp=6349) 100 WBC MORPHOLOGY (BEAKER) (test wslh=064) Normal PLT MORPHOLOGY (BEAKER) (test pvgq=890) Normal ANISOCYTOSIS (BEAKER) (test atnk=119) 1+ few MICROCYTES (BEAKER) (test yyue=778) 1+ few POIKILOCYTES (BEAKER) (test etql=803) 1+ few ARTIFACT (CELLAVISION)(BEAKER) (test slqt=6972) Present PLATELET CONCENTRATION (CELLAVISION)(BEAKER) (test Increased pqan=5550) Received comment: User comments: Slide comments:[id number] 21:20:00 Test Item Value Reference Range Comments PHOSPHORUS (BEAKER) (test qwet=158) 1.8 mg/dL 2.3-4.7 [id number] 21:20:00 Test Item Value Reference Range Comments MAGNESIUM (BEAKER) (test saqp=136) 1.9 mg/dL 1.6-2.6 BASIC METABOLIC [id number] 21:20:00 Test Item Value Reference Range Comments SODIUM (BEAKER) (test 134 meq/L 136-145 vvid=236) POTASSIUM (BEAKER) (test 4.0 meq/L 3.5-5.1 dvld=805) CHLORIDE (BEAKER) (test 99 meq/L 98-107 xqvv=769) CO2 (BEAKER) (test 26 meq/L 22-29 freg=438) BLOOD UREA NITROGEN 18 mg/dL 7-21 (BEAKER) (test ltli=374) CREATININE (BEAKER) (test 0.99 mg/dL 0.57-1.25 uapb=232) GLUCOSE RANDOM (BEAKER) 125 mg/dL 70-105 (test pzgp=530) CALCIUM (BEAKER) (test 9.7 mg/dL 8.4-10.2 lbwj=454) EGFR (BEAKER) (test 76 mL/min/1.73 sq m ESTIMATED GFR IS NOT lvpn=1047) ACCURATE CREATININE CLEARANCE IN PREDICTING GLOMERULAR FILTRATION RATE. ESTIMATED GFR IS NOT APPLICABLE FOR DIALYSIS PATIENTS. HEPATIC FUNCTION [id number] 21:20:00 Test Item Value Reference Range Comments TOTAL PROTEIN (BEAKER) (test btcc=954) 6.7 gm/dL 6.0-8.3 ALBUMIN (BEAKER) (test rtwm=3001) 3.5 g/dL 3.5-5.0 BILIRUBIN TOTAL (BEAKER) (test sigv=321) 0.9 mg/dL 0.2-1.2 BILIRUBIN DIRECT (BEAKER) (test anum=730) 0.4 mg/dL 0.1-0.5 ALKALINE PHOSPHATASE (BEAKER) (test kpbz=740) 241 U/L 40-150 AST (SGOT) (BEAKER) (test gslw=967) 19 U/L 5-34 ALT (SGPT) (BEAKER) (test lkmk=935) 34 U/L 6-55 [id number] 21:20:00 Test Item Value Reference Range Comments LIPASE (BEAKER) (test ipcj=457) 321 U/L 8-78 POCT-LACTIC ACID, [id number] 21:14:00 Test Item Value Reference Range Comments POC-LACTIC ACID, VENOUS 1.3 mmol/L 0.9-1.[address] [facility] [address] [facility] (test oark=9594) [facility] [address] RAD, CHEST, 1 VIEW, NON [id number] 21:11:00Reason for exam:->FEVERReason for exam:->NAUSEAShould this be performed at the bedside?->YesFINAL REPORT Chest, 1 view. History: Fever nausea. Comparison : None available. Findings: Right chest wall Port-A-Cath with tip overlying the cavoatrial junction. The cardiomediastinal silhouette and pulmonary vasculature are within normal limits for a portable exam. The lungs are clear without evidence of consolidation or effusion. The soft tissues and osseous structures areintact.Metallic biliary stent and surgical clips overlie the right upper quadrant. IMPRESSION: No acute cardiopulmonary abnormality. Signed: Fede Ty MDReport Verified Date/Time: 03/01/201921:11:26 [place], [id number] 13:22:00Reason for exam:->biliary stricture,abnormal imagingFINAL REPORT A fluoroscopic unit was utilized for a procedure performed in the operating room. No interpretation was requested. Please refer to the operative report regarding findings. Please refer to PACS for patient radiation dose information. 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 RADIATION DOSE: Total DLP: 1175.18 mGy* cm Estimated effective dose: (DLP x 0.015 x size factor) mSv CTDIvol has been reviewed. It is below the limits set by the Radiation Protocol Committee ( RPC). Dose reduction techniques used: Automated exposure control, adjustment of the mAs and/or kVp according to patient size, standardized low-dose protocol, and/or iterative reconstruction technique. Comparison: CT abdomen/pelvis 2018, CT abdomen/pelvis 07/14/2018, MRI abdomen 07/14/2018. CHEST FINDINGS: Lymph nodes: No enlarged axillary, supraclavicular, mediastinal, or hilar lymph nodes.. Thyroid: Visualized portions are normal. Mediastinum: MediPort catheter terminates in the SVC. There are no filling defects in the great vessels. The ascending aorta measures 4.3 cm in diameter. The main pulmonary artery measures 2.7 cm in diameter. There is a trace pericardial effusion. The heart is top normal in size to mildly enlarged. The esophagus is collapsed. Lungs: Right Lung: Mild centrilobular and paraseptal emphysema. Nodule in the lateral upper lobe measures 2 mm (series 3, image 23). This abuts the pleura. A 1 to 2 mm nodule is in thelateral upper lobe abuts the pleura (series 3, image 61).There is scarring in the posterior lower lobe. Two thin-walled cysts in the posterior lower lobe are stable, each measuring 8 mm. Left Lung: Mild burden of centrilobular and paraseptal emphysema. No discrete nodule. Scarring in the base of the lower lobe is stable. Airways: Patent. Pleura: No pleural effusion or pleural based mass ABDOMEN FINDINGS: Liver: There is air and fluid surrounding the liver consistent with recent surgery. The largestfluid collection is adjacent to segment 4 and measures 17 mm in maximum thickness. This was at the site of a subcapsular metastatic lesion. This collection contains a small amount of debris. There is asubtle subcapsular solid low attenuating lesion in the lateral aspect of segment 6 measuring 5 mm (series 2, image 134). This was not present on previous exam. A 10 mm cystic-appearing lesion in segment 6 is stable. 5-6 low attenuating lesions in the left lobe, the largest measuring 1.2 x 0.8 cm and is stable. A 10 mm cystic-appearing lesion in segment 4 is also stable. The other low attenuating lesions measure approximately 6 mm, are cystic in appearance, and are grossly stable. Gallbladder: Absent. Biliary tree: Diffuse intrahepatic biliary ductal dilatation with the presence of pneumobilia. Thecovered stent is no longer in the common bile duct and resides within the body of the stomach. The common bile duct remains dilated, measuring 1.5 cm in diameter and coming to a very tight taper in thehead of the pancreas. Pancreas: Pancreas duct: Diffusely dilated, measuring 8 mm in maximum diameter. Previously, the common bile duct measured 5 mm.Cystic mass in the pancreas body measures 1.4 x 1.5 cm (previously , 1.3 cm). Cystic mass in the mid body measures 9 mm and is grossly stable. Solid mass in the pancreas head/genu measures 2.5 x 3.5 cm (series 2, image 144 ; series 6, image 35). On the most recent previous CT, this measured 2.5 cm. By EUS, this measured 3.1 x 3.8 cm. SMA: Patent SMV: Patent Portal Vein [place]: Patent Celiac [place]: Patent Celiac [place] and Hepatic Artery Anatomy: Hepatic arteries arise from the SMA Gastroduodenal Artery: Patent Splenic Artery: Patent Splenic Vein: Patent Spleen: Normal in size without mass. Adrenal Glands: No evidence for mass. Kidneys: Right: Normal enhancement. A low attenuating lesion in the lateral lower pole is stable, measuring 4 mm and is likely a cyst. No hydronephrosis. Left: Normal enhancement. Low attenuating lesion in the lower pole is stable measuring 12 mm and is likely a cyst. No hydronephrosis. Lymph Nodes: A lymph node adjacent to the SMA measures 8 x 10 mm in the axial plane (previously, 8 mm in short axis ). It has a central area of hypoattenuation.. A left periaortic lymph node measures 1.5 x 1.4 cm (previously, 1.3 cm in largest transverse dimension). It also has a central area of hypoattenuation. A left periaortic lymph node measures 1.4 x 1.3 cm with central hypoattenuation (previously,1.0 cm). Aorta: Normal in diameter and widely patent. PELVIS FINDINGS: Bowel: Stomach: Contains thecovered biliary stent. No mural thickening or evidence of gastric outlet obstruction.. Small Bowel:Normal in caliber with normal wall thickness. Large Bowel: Normal in caliber with normal wall thickness. Appendix: Not visualized. Bladder: Underdistended.Prostate gland/seminal vesicles: Stable in appearance. Lymph Nodes: No enlarged pelvic or inguinal lymph nodes. Peritoneum/ retroperitoneum: Smallamount of free fluid in the posterior pelvis. There is mild haziness of the small bowel mesentery and several areas of postoperative pneumoperitoneum. No loculated fluid collection. Bones: Mild to moderate degenerative changes of the hips and spine. There are no lytic or blastic lesions. Soft tissues:Small amount of subcutaneous air in the anterior abdominal wall from recent surgery. Stable fat-containing right inguinal hernia. IMPRESSION: 1. Mild burden of centrilobular and paraseptal emphysema. Tiny right pulmonary nodules bear watching. No mediastinal lymphadenopathy to suggest metastasis. Ascending aortic ectasia. 2. Pneumoperitoneum and air in the anterior abdominal wall from recent surgery. A subcapsular fluid collection in segment 4 of the liver corresponds to a resected metastatic lesion. There is a suspected metastatic lesion in the lateral aspect of segment 6. Multiple cystic-appearing lesions in the left lobe appear stable. 3. Covered biliary stent is located in the body of the stomach. Diffuse pneumobilia and biliary ductal dilatation remain. 4. Mass in the pancreas head is slightly smaller. However, two periaortic lymph nodes and a lymph node adjacent to the SMA are stable to slightly larger with central areas of hypoattenuation. 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 RADIATION DOSE: Total DLP: 1175.18 mGy* cm Estimated effective dose: (DLP x 0.015 x size factor) mSv CTDIvol has been reviewed. It is below the limits set by the Radiation Protocol Committee ( RPC). Dose reduction techniques used: Automated exposure control, adjustment of the mAs and/or kVp according to patient size, standardized low-dose protocol, and/or iterative reconstruction technique. Comparison: CT abdomen/pelvis 2018, CT abdomen/pelvis 07/14/2018, MRI abdomen 07/14/2018. CHEST FINDINGS: Lymph nodes: No enlarged axillary, supraclavicular, mediastinal, or hilar lymph nodes.. Thyroid: Visualized portions are normal. Mediastinum: MediPort catheter terminates in the SVC. There are no filling defects in the great vessels. The ascending aorta measures 4.3 cm in diameter. The main pulmonary artery measures 2.7 cm in diameter. There is a trace pericardial effusion. The heart is top normal in size to mildly enlarged. The esophagus is collapsed. Lungs: Right Lung: Mild centrilobular and paraseptal emphysema. Nodule in the lateral upper lobe measures 2 mm (series 3, image 23). This abuts the pleura. A 1 to 2 mm nodule is in thelateral upper lobe abuts the pleura (series 3, image 61).There is scarring in the posterior lower lobe. Two thin-walled cysts in the posterior lower lobe are stable, each measuring 8 mm. Left Lung: Mild burden of centrilobular and paraseptal emphysema. No discrete nodule. Scarring in the base of the lower lobe is stable. Airways: Patent. Pleura: No pleural effusion or pleural based mass ABDOMEN FINDINGS: Liver: There is air and fluid surrounding the liver consistent with recent surgery. The largestfluid collection is adjacent to segment 4 and measures 17 mm in maximum thickness. This was at the site of a subcapsular metastatic lesion. This collection contains a small amount of debris. There is asubtle subcapsular solid low attenuating lesion in the lateral aspect of segment 6 measuring 5 mm (series 2, image 134). This was not present on previous exam. A 10 mm cystic-appearing lesion in segment 6 is stable. 5-6 low attenuating lesions in the left lobe, the largest measuring 1.2 x 0.8 cm and is stable. A 10 mm cystic-appearing lesion in segment 4 is also stable. The other low attenuating lesions measure approximately 6 mm, are cystic in appearance, and are grossly stable. Gallbladder: Absent. Biliary tree: Diffuse intrahepatic biliary ductal dilatation with the presence of pneumobilia. Thecovered stent is no longer in the common bile duct and resides within the body of the stomach. The common bile duct remains dilated, measuring 1.5 cm in diameter and coming to a very tight taper in thehead of the pancreas. Pancreas: Pancreas duct: Diffusely dilated, measuring 8 mm in maximum diameter. Previously, the common bile duct measured 5 mm.Cystic mass in the pancreas body measures 1.4 x 1.5 cm (previously , 1.3 cm). Cystic mass in the mid body measures 9 mm and is grossly stable. Solid mass in the pancreas head/genu measures 2.5 x 3.5 cm (series 2, image 144 ; series 6, image 35). On the most recent previous CT, this measured 2.5 cm. By EUS, this measured 3.1 x 3.8 cm. SMA: Patent SMV: Patent Portal Vein [place]: Patent Celiac [place]: Patent Celiac [place] and Hepatic Artery Anatomy: Hepatic arteries arise from the SMA Gastroduodenal Artery: Patent Splenic Artery: Patent Splenic Vein: Patent Spleen: Normal in size without mass. Adrenal Glands: No evidence for mass. Kidneys: Right: Normal enhancement. A low attenuating lesion in the lateral lower pole is stable, measuring 4 mm and is likely a cyst. No hydronephrosis. Left: Normal enhancement. Low attenuating lesion in the lower pole is stable measuring 12 mm and is likely a cyst. No hydronephrosis. Lymph Nodes: A lymph node adjacent to the SMA measures 8 x 10 mm in the axial plane (previously, 8 mm in short axis ). It has a central area of hypoattenuation.. A left periaortic lymph node measures 1.5 x 1.4 cm (previously, 1.3 cm in largest transverse dimension). It also has a central area of hypoattenuation. A left periaortic lymph node measures 1.4 x 1.3 cm with central hypoattenuation (previously,1.0 cm). Aorta: Normal in diameter and widely patent. PELVIS FINDINGS: Bowel: Stomach: Contains thecovered biliary stent. No mural thickening or evidence of gastric outlet obstruction.. Small Bowel:Normal in caliber with normal wall thickness. Large Bowel: Normal in caliber with normal wall thickness. Appendix: Not visualized. Bladder: Underdistended.Prostate gland/seminal vesicles: Stable in appearance. Lymph Nodes: No enlarged pelvic or inguinal lymph nodes. Peritoneum/ retroperitoneum: Smallamount of free fluid in the posterior pelvis. There is mild haziness of the small bowel mesentery and several areas of postoperative pneumoperitoneum. No loculated fluid collection. Bones: Mild to moderate degenerative changes of the hips and spine. There are no lytic or blastic lesions. Soft tissues:Small amount of subcutaneous air in the anterior abdominal wall from recent surgery. Stable fat-containing right inguinal hernia. IMPRESSION: 1. Mild burden of centrilobular and paraseptal emphysema. Tiny right pulmonary nodules bear watching. No mediastinal lymphadenopathy to suggest metastasis. Ascending aortic ectasia. 2. Pneumoperitoneum and air in the anterior abdominal wall from recent surgery. A subcapsular fluid collection in segment 4 of the liver corresponds to a resected metastatic lesion. There is a suspected metastatic lesion in the lateral aspect of segment 6. Multiple cystic-appearing lesions in the left lobe appear stable. 3. Covered biliary stent is located in the body of the stomach. Diffuse pneumobilia and biliary ductal dilatation remain. 4. Mass in the pancreas head is slightly smaller. However, two periaortic lymph nodes and a lymph node adjacent to the SMA are stable to slightly larger with central areas of hypoattenuation. This may be secondary to treatment response.Signed: Kath Seth MDReport Verified Date/ Time: 01/17/2019 16:37:26 [id number] 15:20:00 Test Item Value Reference Range Comments POC-CREATININE (RADHA) 0.9 mg/dL 0.6-1.[address] [facility] 7200 (test mted=7470) [facility] [address] POC-EGFR (RADHA) (test 84 mL/min/1.73M2 kvdm=2953) TISSUE [id number] 10:38:00Surgical Pathology Report Case: [id number] Authorizing Provider: Viral Pena MD Collected: 01/04/201929 Ordering Location: [facility] Received: 01/04/2019 0844 SERVICES Pathologist: Tamanna Salinas MD Specimens: A) - Biopsy, Liver, left lobe liver lesion B) -Biopsy, Liver , right lobe liver lesion A. LIVER, LEFT LOBE,LESION, EXCISIONAL BIOPSY: - ATYPICAL GLANDULAR PROLIFERATION, INDETERMINATE FOR MALIGNANCY (SEECOMMENT)B. 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 Sections from the left lobe lesion shows scattered atypical glands and fibrosis around the portal areas. Focally, the portal area is significantly expanded with clusters of atypical glands. However, the degree of atypia and proliferation seen in the left lobe are significantly less than the ones seen in right lobe (part B). Given the patient's prior neoadjuvant therapy, this could either represent atypical bile duct proliferation due to obstruction, or metastatic carcinoma with treatment effect. Clinical correlation is recommended. 07742 x 2, 30574 x 2, [id number] ADENOCARCINOMAA. Left lobe liver lesion; B. Liver biopsy right lobe liver lesionThe specimen is received in two parts labeled with the patient's name and MRN number corresponding to requisition slip with the same information.Part A: Received fresh for intraoperative consultation labeled "liver biopsy" is a 0.6 gm, 2 x 1.2 x 0.4 cm portion of tissue. There is an area of 0.8 x 0.5 x 0.4 cm calderon scar identified. The capsule is puckered, The specimen is serially sectioned and submitted entirely in cassettes FSA1 and FSA2. Part B: Received fresh for intraoperative consultation labeled "liver biopsy"is a 1.5 cm spherical brown portion of tissue. The specimen is bisected and submitted entirely in cassette FSB. SO/Hunter SECTION DIAGNOSIS: A. LIVER, LEFT LOBE LESION, BIOPSY: - ATYPICAL GLAND IN FIBROTIC BACKGROUND, SUSPICIOUS FOR MALIGNANCYB. LIVER, RIGHT LOBE LESION, BIOPSY: - ADENOCARCINOMA, COMPATIBLE WITH METASTASIS FROM PATIENT 'S KNOWNPANCREATIC PRIMARYReported by Dr. Salinas on January 04, 2019 , reported to OR- 8. Performed.The interpretation of this case included the use of immunohistochemistry or special stains.Control Slides Examined:In-house known positive controls were evaluated along with the test tissue. These control slides run alongside of the patients sample show appropriate staining. Internal positive and negative controlswhen available are evaluated Immunohistochemistry technical testing was performed at [facility], Pathology Laboratory where it was developed and its performance characteristics were determined. It has not been cleared or approved [...] qualified to perform high complexity clinical laboratory testing.[id number] 13:26: 00 Test Item Value Reference Range Comments HEMOGLOBIN (BEAKER) (test ccze=330) 10.6 GM/DL 13.7-17.5 PLATELET [id number] 13:26:00 Test Item Value Reference Range Comments PLATELET COUNT (BEAKER) (test akuw=460) 288 K/CU MM 150-450 BLOOD [id number] 20:01:00 Test Item Value Reference Range Comments CULTURE (BEAKER) (test kmxz=2667) No growth in 5 days CBC W/PLT COUNT & AUTO [id number] 09:59:00 Test Item Value Reference Range Comments WHITE BLOOD CELL COUNT (BEAKER) (test ahyv=229) 9.4 K/ L 3.5-10.5 RED BLOOD CELL COUNT (BEAKER) (test znre=222) 3.37 M/ L 4.63-6.08 HEMOGLOBIN (BEAKER) (test bpai=610) 9.7 GM/DL 13.7-17.5 HEMATOCRIT (BEAKER) (test olwn=499) 32.1 % 40.1-51.0 MEAN CORPUSCULAR VOLUME (BEAKER) (test wuof=282) 95.3 fL 79.0-92.2 MEAN CORPUSCULAR HEMOGLOBIN (BEAKER) (test 28.8 pg 25.7-32.2 esrf=316) MEAN CORPUSCULAR HEMOGLOBIN CONC (BEAKER) (test 30.2 GM/DL 32.3-36.5 zmyi=588) RED CELL DISTRIBUTION WIDTH (BEAKER) (test 16.2 % 11.6-14.4 qxkz=954) PLATELET COUNT (BEAKER) (test dqkw=679) 216 K/CU MM 150-450 MEAN PLATELET VOLUME (BEAKER) (test kqpc=604) 10.0 fL 9.4-12.4 NUCLEATED RED BLOOD CELLS (BEAKER) (test 0 /100 WBC 0-0 eyaa=030) (CELLAVISION MANUAL DIFF)2018-10-28 09:59:00 Test Item Value Reference Range Comments NEUTROPHILS - REL (CELLAVISION)(BEAKER) (test 88 % kkdo=3197) LYMPHOCYTES - REL (CELLAVISION)(BEAKER) (test 4 % ocfl=7563) MONOCYTES - REL (CELLAVISION)(BEAKER) (test 4 % mrdf=4695) EOSINOPHILS - REL (CELLAVISION)(BEAKER) (test 3 % genw=5119) BASOPHILS - REL (CELLAVISION)(BEAKER) (test 1 % ilbv=7525) NEUTROPHILS - ABS (CELLAVISION)(BEAKER) (test 8.27 K/ul 1.78-5.38 uljf=7569) LYMPHOCYTES - ABS (CELLAVISION)(BEAKER) (test 0.38 K/ul 1.32-3.57 jmab=9566) MONOCYTES - ABS (CELLAVISION)(BEAKER) (test 0.38 K/uL 0.30-0.82 jonq=2447) EOSINOPHILS - ABS (CELLAVISION)(BEAKER) (test 0.28 K/uL 0.04-0.54 cnoh=2547) BASOPHILS - ABS (CELLAVISION)(BEAKER) (test 0.09 K/uL 0.01-0.08 sjgb=1900) TOTAL COUNTED (BEAKER) (test dtfe=8097) 100 WBC MORPHOLOGY (BEAKER) (test xksl=083) Normal PLT MORPHOLOGY (BEAKER) (test ipfc=978) Normal ANISOCYTOSIS (BEAKER) (test ajll=676) 1+ few POIKILOCYTES (BEAKER) (test bjcl=415) 3+ many KUMAR CELLS (BEAKER) (test brlx=148) 2+ moderate ARTIFACT (CELLAVISION)(BEAKER) (test winm=6986) Present PLATELET CONCENTRATION (CELLAVISION)(BEAKER) Adequate (test xfhc=7791) Received comment: User comments: Slide comments:[id number] 07:00:00 Test Item Value Reference Range Comments CORTISOL, TOTAL (BEAKER) (test qrrs=7035) 12.7 ug/dL 3.7-19.4 BASIC METABOLIC [id number] 06:25:00 Test Item Value Reference Range Comments SODIUM (BEAKER) (test 134 meq/L 136-145 cpne=787) POTASSIUM (BEAKER) (test 3.8 meq/L 3.5-5.1 qtdx=966) CHLORIDE (BEAKER) (test 105 meq/L 98-107 rfpy=722) CO2 (BEAKER) (test 24 meq/L 22-29 tafn=968) BLOOD UREA NITROGEN 12 mg/dL 7-21 (BEAKER) (test rnjj=846) CREATININE (BEAKER) (test 0.76 mg/dL 0.57-1.25 pucg=390) GLUCOSE RANDOM (BEAKER) 83 mg/dL 70-105 (test wihu=983) CALCIUM (BEAKER) (test 8.7 mg/dL 8.4-10.2 jruj=146) EGFR (BEAKER) (test 103 mL/min/1.73 sq m ESTIMATED GFR IS NOT gxoh=8115) ACCURATE CREATININE CLEARANCE IN PREDICTING GLOMERULAR FILTRATION RATE. ESTIMATED GFR IS NOT APPLICABLE FOR DIALYSIS PATIENTS. Specimen slightly ictericHEPATIC FUNCTION [id number] 06:25:00 Test Item Value Reference Range Comments TOTAL PROTEIN (BEAKER) (test vibf=945) 5.0 gm/dL 6.0-8.3 ALBUMIN (BEAKER) (test dunw=5305) 2.7 g/dL 3.5-5.0 BILIRUBIN TOTAL (BEAKER) (test qzss=151) 2.4 mg/dL 0.2-1.2 BILIRUBIN DIRECT (BEAKER) (test kfko=150) 1.6 mg/dL 0.1-0.5 ALKALINE PHOSPHATASE (BEAKER) (test fpfz=994) 228 U/L 40-150 AST (SGOT) (BEAKER) (test mgxy=290) 26 U/L 5-34 ALT (SGPT) (BEAKER) (test lufi=012) 26 U/L 6-55 Specimen slightly ictericFL, [id number] 19:14:00Reason for exam:->Bile Duct StrictureFINAL REPORT Fluoroscopic spot imaging was performed at the time of the procedure by the ordering service. This examination is nondiagnostic. Fluoroscopy was not performed by theundersigned, and the radiologist was not present at the time of examination. Interpretation of the images was not requested. Total fluoroscopy time: Not available Total number of films: 9 Please refer to the referring physician's procedure report for complete detail. ERCP was performed. There is dilatation of the biliary system with a common bile duct stent in position. Balloon sweeping was performed. Signed: Boy Salvador MDReport Verified Date/Time: 10/27/2018 19:14:54 Reading Location: [address] Consult Reading Room T4, [id number] 11:33:00 Test Item Value Reference Range Comments FREE T4 (BEAKER) (test ospj=609) 0.74 ng/dL 0.70-1.48 TSH/FREE T4 IF [id number] 09:15:00 Test Item Value Reference Range Comments THYROID STIMULATING HORMONE (BEAKER) (test 6.08 uIU/mL 0.35-4.94 scjb=247) BASIC METABOLIC [id number] 07:06:00 Test Item Value Reference Range Comments SODIUM (BEAKER) (test 138 meq/L 136-145 tjxt=248) POTASSIUM (BEAKER) (test 4.0 meq/L 3.5-5.1 oxoc=911) CHLORIDE (BEAKER) (test 109 meq/L 98-107 jhnm=659) CO2 (BEAKER) (test 23 meq/L 22-29 vzge=371) BLOOD UREA NITROGEN 12 mg/dL 7-21 (BEAKER) (test gxqb=267) CREATININE (BEAKER) (test 0.71 mg/dL 0.57-1.25 stvu=513) GLUCOSE RANDOM (BEAKER) 87 mg/dL 70-105 (test uyuj=993) CALCIUM (BEAKER) (test 8.4 mg/dL 8.4-10.2 tahr=133) EGFR (BEAKER) (test 111 mL/min/1.73 sq m ESTIMATED GFR IS NOT gxam=6876) ACCURATE CREATININE CLEARANCE IN PREDICTING GLOMERULAR FILTRATION RATE. ESTIMATED GFR IS NOT APPLICABLE FOR DIALYSIS PATIENTS. Specimen slightly ictericHEPATIC FUNCTION [id number] 07:06:00 Test Item Value Reference Range Comments TOTAL PROTEIN (BEAKER) (test bvpo=410) 4.4 gm/dL 6.0-8.3 ALBUMIN (BEAKER) (test qfjh=8260) 2.4 g/dL 3.5-5.0 BILIRUBIN TOTAL (BEAKER) (test kohp=998) 2.8 mg/dL 0.2-1.2 BILIRUBIN DIRECT (BEAKER) (test spie=771) 2.1 mg/dL 0.1-0.5 ALKALINE PHOSPHATASE (BEAKER) (test yodb=644) 192 U/L 40-150 AST (SGOT) (BEAKER) (test tntf=830) 42 U/L 5-34 ALT (SGPT) (BEAKER) (test azcd=156) 32 U/L 6-55 Specimen slightly ictericCBC W/PLT COUNT & AUTO [id number] 06:50 :00 Test Item Value Reference Range Comments WHITE BLOOD CELL COUNT (BEAKER) (test gquq=985) 10.4 K/ L 3.5-10.5 RED BLOOD CELL COUNT (BEAKER) (test eubc=711) 2.96 M/ L 4.63-6.08 HEMOGLOBIN (BEAKER) (test emps=898) 8.6 GM/DL 13.7-17.5 HEMATOCRIT (BEAKER) (test lkyk=128) 27.9 % 40.1-51.0 MEAN CORPUSCULAR VOLUME (BEAKER) (test skxp=517) 94.3 fL 79.0-92.2 MEAN CORPUSCULAR HEMOGLOBIN (BEAKER) (test 29.1 pg 25.7-32.2 aimr=373) MEAN CORPUSCULAR HEMOGLOBIN CONC (BEAKER) (test 30.8 GM/DL 32.3-36.5 otjd=709) RED CELL DISTRIBUTION WIDTH (BEAKER) (test 16.2 % 11.6-14.4 qdhv=965) PLATELET COUNT (BEAKER) (test zvjb=638) 180 K/CU MM 150-450 MEAN PLATELET VOLUME (BEAKER) (test twmi=530) 9.6 fL 9.4-12.4 NUCLEATED RED BLOOD CELLS (BEAKER) (test 0 /100 WBC 0-0 urow=624) NEUTROPHILS RELATIVE PERCENT (BEAKER) (test 85 % ryey=027) LYMPHOCYTES RELATIVE PERCENT (BEAKER) (test 4 % ptgp=115) MONOCYTES RELATIVE PERCENT (BEAKER) (test 8 % ujjc=568) EOSINOPHILS RELATIVE PERCENT (BEAKER) (test 1 % nzbo=243) BASOPHILS RELATIVE PERCENT (BEAKER) (test 0 % fgkm=913) NEUTROPHILS ABSOLUTE COUNT (BEAKER) (test 8.85 K/ L 1.78-5.38 likb=604) LYMPHOCYTES ABSOLUTE COUNT (BEAKER) (test 0.41 K/ L 1.32-3.57 wnkk=740) MONOCYTES ABSOLUTE COUNT (BEAKER) (test 0.86 K/ L 0.30-0.82 vnvi=158) EOSINOPHILS ABSOLUTE COUNT (BEAKER) (test 0.15 K/ L 0.04-0.54 rzuk=130) BASOPHILS ABSOLUTE COUNT (BEAKER) (test 0.03 K/ L 0.01-0.08 eiep=831) IMMATURE GRANULOCYTES-RELATIVE PERCENT (BEAKER) 1 % 0-1 (test rqsu=8612) CBC W/PLT COUNT & AUTO [id number] 11:37:00 Test Item Value Reference Range Comments WHITE BLOOD CELL COUNT (BEAKER) (test qtmj=117) 22.2 K/ L 3.5-10.5 RED BLOOD CELL COUNT (BEAKER) (test rkrk=054) 3.15 M/ L 4.63-6.08 HEMOGLOBIN (BEAKER) (test twwr=562) 9.3 GM/DL 13.7-17.5 HEMATOCRIT (BEAKER) (test vjju=244) 29.2 % 40.1-51.0 MEAN CORPUSCULAR VOLUME (BEAKER) (test yczc=212) 92.7 fL 79.0-92.2 MEAN CORPUSCULAR HEMOGLOBIN (BEAKER) (test 29.5 pg 25.7-32.2 gjxz=070) MEAN CORPUSCULAR HEMOGLOBIN CONC (BEAKER) (test 31.8 GM/DL 32.3-36.5 zehz=808) RED CELL DISTRIBUTION WIDTH (BEAKER) (test 15.9 % 11.6-14.4 irgf=940) PLATELET COUNT (BEAKER) (test wwbu=933) 224 K/CU MM 150-450 MEAN PLATELET VOLUME (BEAKER) (test opjz=316) 9.7 fL 9.4-12.4 NUCLEATED RED BLOOD CELLS (BEAKER) (test 0 /100 WBC 0-0 hkbs=234) (CELLAVISION MANUAL DIFF)2018-10-26 11:37:00 Test Item Value Reference Range Comments NEUTROPHILS - REL (CELLAVISION)(BEAKER) (test 92 % mvky=6284) MONOCYTES - REL (CELLAVISION)(BEAKER) (test 6 % hpkx=1271) BANDS - REL (CELLAVISION)(BEAKER) (test 2 % 0-10 ijej=4896) NEUTROPHILS - ABS (CELLAVISION)(BEAKER) (test 20.42 K/ul 1.78-5.38 bigt=0987) MONOCYTES - ABS (CELLAVISION)(BEAKER) (test 1.33 K/uL 0.30-0.82 cooi=7514) BANDS - ABS (CELLAVISION)(BEAKER) (test 0.44 K/uL 0.00-0.80 rozg=6646) TOTAL COUNTED (BEAKER) (test pbiu=6798) 100 WBC MORPHOLOGY (BEAKER) (test wobf=611) Normal PLT MORPHOLOGY (BEAKER) (test fkjs=907) Normal ANISOCYTOSIS (BEAKER) (test ohwm=519) 1+ few MICROCYTES (BEAKER) (test dngd=403) 1+ few POIKILOCYTES (BEAKER) (test zkhu=043) 1+ few OVALOCYTES (BEAKER) (test bvag=145) 1+ few ARTIFACT (CELLAVISION)(BEAKER) (test wwje=3470) Present PLATELET CONCENTRATION (CELLAVISION)(BEAKER) Adequate (test eame=0992) Received comment: User comments: Slide comments:COMPREHENSIVE METABOLIC [id number] 11:17:00 Test Item Value Reference Range Comments TOTAL PROTEIN (BEAKER) 4.8 gm/dL 6.0-8.3 (test ukrg=973) ALBUMIN (BEAKER) (test 2.8 g/dL 3.5-5.0 soov=2447) ALKALINE PHOSPHATASE 222 U/L 40-150 (BEAKER) (test fqwa=639) BILIRUBIN TOTAL (BEAKER) 2.5 mg/dL 0.2-1.2 (test axag=731) SODIUM (BEAKER) (test 138 meq/L 136-145 cgsj=377) POTASSIUM (BEAKER) (test 3.6 meq/L 3.5-5.1 chbt=000) CHLORIDE (BEAKER) (test 105 meq/L 98-107 lemn=602) CO2 (BEAKER) (test 28 meq/L 22-29 dwli=677) BLOOD UREA NITROGEN 10 mg/dL 7-21 (BEAKER) (test bsds=404) CREATININE (BEAKER) (test 0.82 mg/dL 0.57-1.25 etbm=300) GLUCOSE RANDOM (BEAKER) 114 mg/dL 70-105 (test ekdq=464) CALCIUM (BEAKER) (test 8.6 mg/dL 8.4-10.2 ttjk=082) AST (SGOT) (BEAKER) (test 88 U/L 5-34 agtx=929) ALT (SGPT) (BEAKER) (test 50 U/L 6-55 ydvn=446) EGFR (BEAKER) (test 94 mL/min/1.73 sq m ESTIMATED GFR IS NOT wbpd=4318) ACCURATE CREATININE CLEARANCE IN PREDICTING GLOMERULAR FILTRATION RATE. ESTIMATED GFR IS NOT APPLICABLE FOR DIALYSIS PATIENTS. Specimen slightly ictericPROTHROMBIN [id number] 06:49:00 Test Item Value Reference Range Comments PROTIME (BEAKER) (test ptsi=748) 14.4 seconds 11.7-14.7 INR (BEAKER) (test hcie=981) 1.2 <=5.9 RECOMMENDED COUMADIN/WARFARIN INR THERAPY RANGESSTANDARD DOSE: 2.0 - 3.0 Includes: PROPHYLAXIS forvenous thrombosis, systemic embolization; TREATMENT for venous thrombosis and/or pulmonary embolus.HIGH RISK: Target INR is 2.5-3.5 for patients with mechanical heart valves.CT, ABDOMEN, WITHOUT / WITH IV [id number] 11:25:00FINAL REPORT EXAM: CT Abdomen WITHOUT and WITH [...] arterial phase through the liver and venous phasethrough the abdomen. IV CONTRAST: 150 mL of [...] No splenomegaly. PANCREAS: Pancreatic ductal dilatation. Within thebody at midline a 1.3 cm cystic lesion and a 0.9 cm cystic lesion seen on image 40 and 44. These have increased in size. Extending inferiorly and medially from the pancreatic head/uncinate process ill-defined 2.5 cm lesion axial image 61 and coronal image 35. Difficult to measure and comparison CT dueto phase of contrast. No involvement of the superior mesenteric artery or vein. No involvement of the portal vein. The hepatic arteries arise from the superior mesenteric artery Adenopathy: No enlargedlymph nodes ADRENALS: No adrenal nodules KIDNEYS/URETERS: Kidneys [...] TISSUES: Unremarkable. IMPRESSION: 1.Pancreatic adenocarcinoma without vascular involvement.Increase in size of the peripancreatic lymph nodes.2.Common bile duct stent with luminal debris. Mild intrahepatic dilatation and pneumobilia.3.Hypodense liver lesions mostly cysts. The 1 cm right hepatic lobe lesion is indeterminate. Signed: Sancho Knight MDReport Verified Date/Time: 10/13/2018 11:25:26 [id number] 10:20:00 Test Item Value Reference Range Comments POC-CREATININE (BEAKER) 1.1 mg/dL 0.6-1.[address] [facility] 7200 (test giwb=2191) [facility] [address] POC-EGFR (BEAKER) (test 67 mL/min/1.73M2 csom=5872) FINE NEEDLE ASPIRATION BY [id number] 08:47:00Medical Cytology Report Case: [id number] Authorizing Provider: Kalin Duff MD Collected: 2018 1639 Ordering Location: [address] Received : 07/27/2018 0940 SERVICE Pathologist: [...] developed and its performance characteristics determined by [facility], Pathology Laboratory. 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 [facility], [facility] of Pathology, [address] [place] [address], [facility], [facility] of [facility], [address] [place] [address], [facility], Department of Pathology, [address] [place] [address], ABD, TUNNEL CATH CENTRAL INS W/PORT [id number] 11:08: 00Reason for Exam:->C25.0FINAL REPORT Right internal jugular chest port insertion History: Pancreatic cancer. Modality: Sonography and fluoroscopy. Sedation: Versed 1.0 mg and fentanyl 50 mcg given intravenously for conscious sedation. Vital signs were monitored throughout the procedure by a nurse, and remained stable. Physician intra-service time was 20 minutes. Bending Frame Operator: Jozef Pryor MD [employer] Operations Engineer: None. Approach: Right internal jugular vein Estimated [...] needle into the right atrium. A 4 [place] micropuncture sheath was placed. A subcutaneous tunnel [...] ready for immediate use. Signed: Jozef Pryor MDReport Verified Date/Time: 08/09 11:08:23 Reading Location: [place] [id number] Angio Body Reading Room PROTHROMBIN [id number] 06:55:00 Test Item Value Reference Range Comments PROTIME (BEAKER) (test nwhw=957) 13.9 seconds 11.7-14.7 INR (BEAKER) (test nmuk=887) 1.0 <=5.9 RECOMMENDED COUMADIN/WARFARIN INR THERAPY RANGESSTANDARD DOSE: 2.0 - 3.0 Includes: PROPHYLAXIS forvenous thrombosis, systemic embolization; TREATMENT for venous thrombosis and/or pulmonary embolus.HIGH RISK: Target INR is 2.5-3.5 for patients with mechanical heart valves.CBC W/PLT COUNT & AUTO [id number] 06:43:00 Test Item Value Reference Range Comments WHITE BLOOD CELL COUNT (BEAKER) (test rduf=787) 5.6 K/ L 3.5-10.5 RED BLOOD CELL COUNT (BEAKER) (test srlv=835) 3.83 M/ L 4.63-6.08 HEMOGLOBIN (BEAKER) (test gqbr=385) 12.0 GM/DL 13.7-17.5 HEMATOCRIT (BEAKER) (test xmdk=963) 36.9 % 40.1-51.0 MEAN CORPUSCULAR VOLUME (BEAKER) (test qcug=456) 96.3 fL 79.0-92.2 MEAN CORPUSCULAR HEMOGLOBIN (BEAKER) (test 31.3 pg 25.7-32.2 syab=788) MEAN CORPUSCULAR HEMOGLOBIN CONC (BEAKER) (test 32.5 GM/DL 32.3-36.5 bpge=341) RED CELL DISTRIBUTION WIDTH (BEAKER) (test 13.5 % 11.6-14.4 xwdt=451) PLATELET COUNT (BEAKER) (test ucwq=691) 292 K/CU MM 150-450 MEAN PLATELET VOLUME (BEAKER) (test gwag=940) 8.8 fL 9.4-12.4 NUCLEATED RED BLOOD CELLS (BEAKER) (test 0 /100 WBC 0-0 peqg=438) NEUTROPHILS RELATIVE PERCENT (BEAKER) (test 68 % savs=669) LYMPHOCYTES RELATIVE PERCENT (BEAKER) (test 20 % mawu=574) MONOCYTES RELATIVE PERCENT (BEAKER) (test 8 % opte=958) EOSINOPHILS RELATIVE PERCENT (BEAKER) (test 3 % cknj=619) BASOPHILS RELATIVE PERCENT (BEAKER) (test 0 % jhxk=998) NEUTROPHILS ABSOLUTE COUNT (BEAKER) (test 3.77 K/ L 1.78-5.38 rhcx=953) LYMPHOCYTES ABSOLUTE COUNT (BEAKER) (test 1.12 K/ L 1.32-3.57 prwu=780) MONOCYTES ABSOLUTE COUNT (BEAKER) (test 0.46 K/ L 0.30-0.82 thdu=960) EOSINOPHILS ABSOLUTE COUNT (BEAKER) (test 0.18 K/ L 0.04-0.54 urud=411) BASOPHILS ABSOLUTE COUNT (BEAKER) (test 0.01 K/ L 0.01-0.08 gnoa=348) IMMATURE GRANULOCYTES-RELATIVE PERCENT (BEAKER) 0 % 0-1 (test ivwm=0934) [place], [id number] 12:51:00INTRA OP IMAGINGReason for exam:->ABNORMAL IMAGINGPROCEDURE PERFORMED IN O.R. - PLEASE REFER TO THE INTRAOPERATIVE REPORT. FINE NEEDLE ASPIRATE (FNA) [id number] 11:02:00 Test Item Value Reference Range Comments CYTOLOGY RESULT POINTER (BEAKER) (test See Separate Report smku=7062) [id number] 05:31:00 Test Item Value Reference Range Comments MAGNESIUM (BEAKER) (test nknh=051) 2.0 mg/dL 1.6-2.6 BASIC METABOLIC [id number] 05:31:00 Test Item Value Reference Range Comments SODIUM (BEAKER) (test 135 meq/L 136-145 etdu=895) POTASSIUM (BEAKER) (test 4.4 meq/L 3.5-5.1 bxeo=587) CHLORIDE (BEAKER) (test 107 meq/L 98-107 mqao=525) CO2 (BEAKER) (test 23 meq/L 22-29 iarn=975) BLOOD UREA NITROGEN 12 mg/dL 7-21 (BEAKER) (test uubh=962) CREATININE (BEAKER) (test 1.03 mg/dL 0.57-1.25 nqmx=395) GLUCOSE RANDOM (BEAKER) 99 mg/dL 70-105 (test jwgd=684) CALCIUM (BEAKER) (test 9.3 mg/dL 8.4-10.2 edbt=661) EGFR (BEAKER) (test 72 mL/min/1.73 sq m ESTIMATED GFR IS NOT fcjy=6531) ACCURATE CREATININE CLEARANCE IN PREDICTING GLOMERULAR FILTRATION RATE. ESTIMATED GFR IS NOT APPLICABLE FOR DIALYSIS PATIENTS. Specimen moderately ictericHEPATIC FUNCTION [id number] 05:31:00 Test Item Value Reference Range Comments TOTAL PROTEIN (BEAKER) (test ykrg=527) 5.3 gm/dL 6.0-8.3 ALBUMIN (BEAKER) (test tako=4452) 3.3 g/dL 3.5-5.0 BILIRUBIN TOTAL (BEAKER) (test bvyk=909) 7.9 mg/dL 0.2-1.2 BILIRUBIN DIRECT (BEAKER) (test ucku=201) 5.2 mg/dL 0.1-0.5 ALKALINE PHOSPHATASE (BEAKER) (test scvz=951) 231 U/L 40-150 AST (SGOT) (BEAKER) (test xamp=105) 61 U/L 5-34 ALT (SGPT) (BEAKER) (test mehz=481) 264 U/L 6-55 Specimen moderately ictericCBC W/PLT COUNT & AUTO [id number] 05: 07:00 Test Item Value Reference Range Comments WHITE BLOOD CELL COUNT (BEAKER) (test ynhs=438) 3.2 K/ L 3.5-10.5 RED BLOOD CELL COUNT (BEAKER) (test kpau=434) 3.34 M/ L 4.63-6.08 HEMOGLOBIN (BEAKER) (test uvyr=039) 10.5 GM/DL 13.7-17.5 HEMATOCRIT (BEAKER) (test sexu=100) 32.9 % 40.1-51.0 MEAN CORPUSCULAR VOLUME (BEAKER) (test kbcl=289) 98.5 fL 79.0-92.2 MEAN CORPUSCULAR HEMOGLOBIN (BEAKER) (test 31.4 pg 25.7-32.2 kllz=534) MEAN CORPUSCULAR HEMOGLOBIN CONC (BEAKER) (test 31.9 GM/DL 32.3-36.5 yxjh=870) RED CELL DISTRIBUTION WIDTH (BEAKER) (test 14.2 % 11.6-14.4 qdvm=372) PLATELET COUNT (BEAKER) (test lzrz=900) 221 K/CU MM 150-450 MEAN PLATELET VOLUME (BEAKER) (test flmh=668) 10.3 fL 9.4-12.4 NUCLEATED RED BLOOD CELLS (BEAKER) (test 0 /100 WBC 0-0 cdye=087) NEUTROPHILS RELATIVE PERCENT (BEAKER) (test 74 % etgy=193) LYMPHOCYTES RELATIVE PERCENT (BEAKER) (test 17 % yhyd=803) MONOCYTES RELATIVE PERCENT (BEAKER) (test 8 % yxjz=067) EOSINOPHILS RELATIVE PERCENT (BEAKER) (test 1 % cvbw=891) BASOPHILS RELATIVE PERCENT (BEAKER) (test 0 % gsof=098) NEUTROPHILS ABSOLUTE COUNT (BEAKER) (test 2.37 K/ L 1.78-5.38 aiyp=260) LYMPHOCYTES ABSOLUTE COUNT (BEAKER) (test 0.55 K/ L 1.32-3.57 kqwe=257) MONOCYTES ABSOLUTE COUNT (BEAKER) (test 0.26 K/ L 0.30-0.82 eyqf=893) EOSINOPHILS ABSOLUTE COUNT (BEAKER) (test 0.02 K/ L 0.04-0.54 gpcw=013) BASOPHILS ABSOLUTE COUNT (BEAKER) (test 0.01 K/ L 0.01-0.08 rhaa=986) IMMATURE GRANULOCYTES-RELATIVE PERCENT (BEAKER) 0 % 0-1 (test wsbh=0740) [id number] 05:52:00 Test Item Value Reference Range Comments MAGNESIUM (BEAKER) (test oqfo=408) 2.1 mg/dL 1.6-2.6 BASIC METABOLIC [id number] 05:52:00 Test Item Value Reference Range Comments SODIUM (BEAKER) (test 136 meq/L 136-145 fmaa=610) POTASSIUM (BEAKER) (test 3.9 meq/L 3.5-5.1 rzmi=216) CHLORIDE (BEAKER) (test 104 meq/L 98-107 jzgu=802) CO2 (BEAKER) (test 25 meq/L 22-29 uqaw=839) BLOOD UREA NITROGEN 13 mg/dL 7-21 (BEAKER) (test khej=051) CREATININE (BEAKER) (test 1.08 mg/dL 0.57-1.25 ebkc=864) GLUCOSE RANDOM (BEAKER) 84 mg/dL 70-105 (test jasq=278) CALCIUM (BEAKER) (test 9.2 mg/dL 8.4-10.2 prou=946) EGFR (BEAKER) (test 69 mL/min/1.73 sq m ESTIMATED GFR IS NOT nplj=4999) ACCURATE CREATININE CLEARANCE IN PREDICTING GLOMERULAR FILTRATION RATE. ESTIMATED GFR IS NOT APPLICABLE FOR DIALYSIS PATIENTS. Specimen moderately ictericHEPATIC FUNCTION [id number] 05:52:00 Test Item Value Reference Range Comments TOTAL PROTEIN (BEAKER) (test lkce=743) 5.2 gm/dL 6.0-8.3 ALBUMIN (BEAKER) (test jpbq=0500) 3.3 g/dL 3.5-5.0 BILIRUBIN TOTAL (BEAKER) (test vshj=703) 10.6 mg/dL 0.2-1.2 BILIRUBIN DIRECT (BEAKER) (test aaif=685) 7.1 mg/dL 0.1-0.5 ALKALINE PHOSPHATASE (BEAKER) (test zibd=394) 242 U/L 40-150 AST (SGOT) (BEAKER) (test ncvv=066) 80 U/L 5-34 ALT (SGPT) (BEAKER) (test fxjz=179) 321 U/L 6-55 Specimen moderately ictericCBC W/PLT COUNT & AUTO [id number] 05: 35:00 Test Item Value Reference Range Comments WHITE BLOOD CELL COUNT (BEAKER) (test htxx=275) 3.8 K/ L 3.5-10.5 RED BLOOD CELL COUNT (BEAKER) (test khgw=837) 3.34 M/ L 4.63-6.08 HEMOGLOBIN (BEAKER) (test cmhq=289) 10.4 GM/DL 13.7-17.5 HEMATOCRIT (BEAKER) (test vfuq=110) 31.9 % 40.1-51.0 MEAN CORPUSCULAR VOLUME (BEAKER) (test ifpx=113) 95.5 fL 79.0-92.2 MEAN CORPUSCULAR HEMOGLOBIN (BEAKER) (test 31.1 pg 25.7-32.2 upnn=282) MEAN CORPUSCULAR HEMOGLOBIN CONC (BEAKER) (test 32.6 GM/DL 32.3-36.5 oiji=429) RED CELL DISTRIBUTION WIDTH (BEAKER) (test 13.7 % 11.6-14.4 rwoy=530) PLATELET COUNT (BEAKER) (test mqev=820) 215 K/CU MM 150-450 MEAN PLATELET VOLUME (BEAKER) (test uftn=364) 10.9 fL 9.4-12.4 NUCLEATED RED BLOOD CELLS (BEAKER) (test 0 /100 WBC 0-0 etow=906) NEUTROPHILS RELATIVE PERCENT (BEAKER) (test 66 % ngzl=444) LYMPHOCYTES RELATIVE PERCENT (BEAKER) (test 19 % uxtu=468) MONOCYTES RELATIVE PERCENT (BEAKER) (test 11 % yxor=125) EOSINOPHILS RELATIVE PERCENT (BEAKER) (test 3 % acmv=981) BASOPHILS RELATIVE PERCENT (BEAKER) (test 0 % xkgq=910) NEUTROPHILS ABSOLUTE COUNT (BEAKER) (test 2.52 K/ L 1.78-5.38 bdik=154) LYMPHOCYTES ABSOLUTE COUNT (BEAKER) (test 0.74 K/ L 1.32-3.57 jesl=737) MONOCYTES ABSOLUTE COUNT (BEAKER) (test 0.43 K/ L 0.30-0.82 sdlo=311) EOSINOPHILS ABSOLUTE COUNT (BEAKER) (test 0.11 K/ L 0.04-0.54 bwwv=652) BASOPHILS ABSOLUTE COUNT (BEAKER) (test 0.01 K/ L 0.01-0.08 htfx=611) IMMATURE GRANULOCYTES-RELATIVE PERCENT (BEAKER) 0 % 0-1 (test gvdr=8795) [id number] 06:48:00 Test Item Value Reference Range Comments MAGNESIUM (BEAKER) (test ohsn=113) 2.0 mg/dL 1.6-2.6 BASIC METABOLIC [id number] 06:48:00 Test Item Value Reference Range Comments SODIUM (BEAKER) (test 133 meq/L 136-145 haoj=868) POTASSIUM (BEAKER) (test 3.9 meq/L 3.5-5.1 jupt=982) CHLORIDE (BEAKER) (test 98 meq/L 98-107 vtdd=878) CO2 (BEAKER) (test 25 meq/L 22-29 bbpy=953) BLOOD UREA NITROGEN 18 mg/dL 7-21 (BEAKER) (test onui=799) CREATININE (BEAKER) (test 1.09 mg/dL 0.57-1.25 ezjl=756) GLUCOSE RANDOM (BEAKER) 78 mg/dL 70-105 (test cuar=842) CALCIUM (BEAKER) (test 9.5 mg/dL 8.4-10.2 kjha=009) EGFR (BEAKER) (test 68 mL/min/1.73 sq m ESTIMATED GFR IS NOT xkdu=5127) ACCURATE CREATININE CLEARANCE IN PREDICTING GLOMERULAR FILTRATION RATE. ESTIMATED GFR IS NOT APPLICABLE FOR DIALYSIS PATIENTS. Specimen moderately ictericHEPATIC FUNCTION [id number] 06:48:00 Test Item Value Reference Range Comments TOTAL PROTEIN (BEAKER) (test cnpm=393) 5.5 gm/dL 6.0-8.3 ALBUMIN (BEAKER) (test kmlp=9712) 3.4 g/dL 3.5-5.0 BILIRUBIN TOTAL (BEAKER) (test kyit=847) 11.6 mg/dL 0.2-1.2 BILIRUBIN DIRECT (BEAKER) (test gxuf=722) 7.7 mg/dL 0.1-0.5 ALKALINE PHOSPHATASE (BEAKER) (test ykyi=461) 275 U/L 40-150 AST (SGOT) (BEAKER) (test jnna=552) 99 U/L 5-34 ALT (SGPT) (BEAKER) (test cllc=713) 417 U/L 6-55 Specimen moderately ictericCBC W/PLT COUNT & AUTO [id number] 05: 54:00 Test Item Value Reference Range Comments WHITE BLOOD CELL COUNT (BEAKER) (test xbvj=835) 5.3 K/ L 3.5-10.5 RED BLOOD CELL COUNT (BEAKER) (test ojqh=343) 3.95 M/ L 4.63-6.08 HEMOGLOBIN (BEAKER) (test tduu=453) 12.2 GM/DL 13.7-17.5 HEMATOCRIT (BEAKER) (test mmah=936) 37.2 % 40.1-51.0 MEAN CORPUSCULAR VOLUME (BEAKER) (test hgyv=685) 94.2 fL 79.0-92.2 MEAN CORPUSCULAR HEMOGLOBIN (BEAKER) (test 30.9 pg 25.7-32.2 baho=275) MEAN CORPUSCULAR HEMOGLOBIN CONC (BEAKER) (test 32.8 GM/DL 32.3-36.5 zauq=423) RED CELL DISTRIBUTION WIDTH (BEAKER) (test 13.3 % 11.6-14.4 qrab=692) PLATELET COUNT (BEAKER) (test zovj=040) 231 K/CU MM 150-450 MEAN PLATELET VOLUME (BEAKER) (test kwsi=635) 10.7 fL 9.4-12.4 NUCLEATED RED BLOOD CELLS (BEAKER) (test 0 /100 WBC 0-0 tnhj=457) NEUTROPHILS RELATIVE PERCENT (BEAKER) (test 70 % rjld=110) LYMPHOCYTES RELATIVE PERCENT (BEAKER) (test 18 % ffwn=862) MONOCYTES RELATIVE PERCENT (BEAKER) (test 10 % blkt=203) EOSINOPHILS RELATIVE PERCENT (BEAKER) (test 2 % jwqk=370) BASOPHILS RELATIVE PERCENT (BEAKER) (test 0 % qmif=776) NEUTROPHILS ABSOLUTE COUNT (BEAKER) (test 3.75 K/ L 1.78-5.38 oeaw=627) LYMPHOCYTES ABSOLUTE COUNT (BEAKER) (test 0.93 K/ L 1.32-3.57 ixmw=970) MONOCYTES ABSOLUTE COUNT (BEAKER) (test 0.53 K/ L 0.30-0.82 wcqr=954) EOSINOPHILS ABSOLUTE COUNT (BEAKER) (test 0.08 K/ L 0.04-0.54 obou=441) BASOPHILS ABSOLUTE COUNT (BEAKER) (test 0.02 K/ L 0.01-0.08 jkhe=935) IMMATURE GRANULOCYTES-RELATIVE PERCENT (BEAKER) 0 % 0-1 (test qzjx=5267) BASIC METABOLIC [id number] 21:28:00 Test Item Value Reference Range Comments SODIUM (BEAKER) (test 129 meq/L 136-145 pazx=948) POTASSIUM (BEAKER) (test 3.8 meq/L 3.5-5.1 mhxl=968) CHLORIDE (BEAKER) (test 91 meq/L 98-107 irko=554) CO2 (BEAKER) (test 23 meq/L 22-29 dzkm=584) BLOOD UREA NITROGEN 21 mg/dL 7-21 (BEAKER) (test eskp=165) CREATININE (BEAKER) (test 1.22 mg/dL 0.57-1.25 suvy=404) GLUCOSE RANDOM (BEAKER) 86 mg/dL 70-105 (test delk=515) CALCIUM (BEAKER) (test 10.5 mg/dL 8.4-10.2 xpom=525) EGFR (BEAKER) (test 60 mL/min/1.73 sq m ESTIMATED GFR IS NOT rlby=7748) ACCURATE CREATININE CLEARANCE IN PREDICTING GLOMERULAR FILTRATION RATE. ESTIMATED GFR IS NOT APPLICABLE FOR DIALYSIS PATIENTS. Specimen markedly ictericHEPATIC FUNCTION [id number] 21:28:00 Test Item Value Reference Range Comments TOTAL PROTEIN (BEAKER) (test fmua=801) 6.8 gm/dL 6.0-8.3 ALBUMIN (BEAKER) (test bggj=7825) 4.1 g/dL 3.5-5.0 BILIRUBIN TOTAL (BEAKER) (test zopy=903) 13.9 mg/dL 0.2-1.2 BILIRUBIN DIRECT (BEAKER) (test srjr=345) 8.9 mg/dL 0.1-0.5 ALKALINE PHOSPHATASE (BEAKER) (test apxt=253) 337 U/L 40-150 AST (SGOT) (BEAKER) (test rjsm=081) 135 U/L 5-34 ALT (SGPT) (BEAKER) (test nvae=085) 556 U/L 6-55 Specimen markedly [id number] 21:28:00 Test Item Value Reference Range Comments LIPASE (BEAKER) (test qvqb=184) 19 U/L 8-78 Specimen markedly ictericCBC W/PLT COUNT & AUTO [id number] 20:58 :00 Test Item Value Reference Range Comments WHITE BLOOD CELL COUNT (BEAKER) (test peju=809) 6.3 K/ L 3.5-10.5 RED BLOOD CELL COUNT (BEAKER) (test fcpw=518) 4.18 M/ L 4.63-6.08 HEMOGLOBIN (BEAKER) (test tvja=513) 13.0 GM/DL 13.7-17.5 HEMATOCRIT (BEAKER) (test svgc=215) 38.6 % 40.1-51.0 MEAN CORPUSCULAR VOLUME (BEAKER) (test wime=532) 92.3 fL 79.0-92.2 MEAN CORPUSCULAR HEMOGLOBIN (BEAKER) (test 31.1 pg 25.7-32.2 ogfx=272) MEAN CORPUSCULAR HEMOGLOBIN CONC (BEAKER) (test 33.7 GM/DL 32.3-36.5 cwbw=238) RED CELL DISTRIBUTION WIDTH (BEAKER) (test 13.3 % 11.6-14.4 qrfb=149) PLATELET COUNT (BEAKER) (test kdda=547) 296 K/CU MM 150-450 MEAN PLATELET VOLUME (BEAKER) (test jofl=789) 11.4 fL 9.4-12.4 NUCLEATED RED BLOOD CELLS (BEAKER) (test 0 /100 WBC 0-0 bwkd=619) NEUTROPHILS RELATIVE PERCENT (BEAKER) (test 78 % uklb=344) LYMPHOCYTES RELATIVE PERCENT (BEAKER) (test 11 % gbjm=199) MONOCYTES RELATIVE PERCENT (BEAKER) (test 9 % orkr=861) EOSINOPHILS RELATIVE PERCENT (BEAKER) (test 1 % lcvk=148) BASOPHILS RELATIVE PERCENT (BEAKER) (test 0 % cilu=675) NEUTROPHILS ABSOLUTE COUNT (BEAKER) (test 4.92 K/ L 1.78-5.38 qjlq=210) LYMPHOCYTES ABSOLUTE COUNT (BEAKER) (test 0.72 K/ L 1.32-3.57 fejw=923) MONOCYTES ABSOLUTE COUNT (BEAKER) (test 0.59 K/ L 0.30-0.82 iyqa=936) EOSINOPHILS ABSOLUTE COUNT (BEAKER) (test 0.03 K/ L 0.04-0.54 cypq=584) BASOPHILS ABSOLUTE COUNT (BEAKER) (test 0.02 K/ L 0.01-0.08 iqxl=738) IMMATURE GRANULOCYTES-RELATIVE PERCENT (BEAKER) 0 % 0-1 (test gxky=8021)
--- NOTE | 2019-06-23 18:51 | EDPHYS ---
Physician Documentation [facility] Name: Mario Santos Age: 68 yrs Sex: Male : 1950 Arrival Date: 06/23/2019 Time: 17:35 Bed 20 Private MD: Quinn Potts T ED Physician Jian Meeks HPI: 06/23 18:39 This 68 yrs old Male presents to ER via Ambulatory with complaints of Rash. la1 18:39 The patient's rash thought to be caused by an unknown cause. The rash is located on the la1 left supraclavicular area, left clavicle, anterior aspect of left upper chest, left lateral anterior chest and left breast. The rash can be described as patchy, raised, vesicular. Onset: The symptoms/episode began/occurred 3 day(s) ago. Associated signs and symptoms: Pertinent positives: burning pain. Severity of symptoms: At their worst the symptoms were mild in the emergency department the symptoms are unchanged. Treatment given at home: steroid lotion/cream. The patient has not experienced similar symptoms in the past. pt on chemo for pancreatic CA, noticed burning rash a few days ago to left anterior chest wall and over clavicle/shoulder area. Historical: - Allergies: 17:51 lactose; iw - PMHx: 17:51 Hyperlipidemia; Hypertension; Hypothyroidism; pancreatic cancer; iw - PSHx: 17:51 Cholecystectomy; wrist surgery; iw - Immunization history:: Adult Immunizations up to date. - Ebola Screening: : Patient negative for fever greater than or equal to 101.5 degrees Fahrenheit, and additional compatible Ebola Virus Disease symptoms Patient denies exposure to infectious person Patient denies travel to an Ebola-affected area in the 21 days before illness onset No symptoms or risks identified at this time. - Social history:: Smoking status: Patient denies any tobacco usage or history of. ROS: 18:41 Constitutional: Negative for fever, chills, and weight loss, Eyes: Negative for injury, la1 pain, redness, and discharge, Neck: Negative for injury, pain, and swelling, Cardiovascular: Negative for chest pain, palpitations, and edema, Respiratory: Negative for shortness of breath, cough, wheezing, and pleuritic chest pain, Abdomen/GI: Negative for abdominal pain, nausea, vomiting, diarrhea, and constipation, Back: Negative for injury and pain, MS/Extremity: Negative for injury and deformity. 18:41 Neuro: Negative for headache, weakness, numbness, tingling, and seizure. 18:41 Skin: Positive for rash, of the left breast and left lateral anterior chest and anterior aspect of left upper chest and left clavicle and left supraclavicular area. Exam: 18:41 Constitutional: This is a well developed, well nourished patient who is awake, alert, la1 and in no acute distress. Head/Face: Normocephalic, atraumatic. Eyes: . Periorbital areas with no swelling, redness, or edema. ENT: Mucous membranes moist. Neck: Trachea midline Chest/axilla: Normal chest wall appearance and motion. Nontender with no deformity. Cardiovascular: Regular rate and rhythm with a normal S1 and S2. Respiratory: Lungs have equal breath sounds bilaterally, clear to auscultation 18:41 MS/ Extremity: Pulses equal, no cyanosis. Neurovascular intact. Full, normal range of motion. 18:41 Skin: rash a moderate rash is noted, rash can be described as raised, vesicular, zoster, on the left breast and left lateral anterior chest and anterior aspect of left upper chest and left clavicle and left supraclavicular area. Vital Signs: 17:51 BP 129 / 86; Pulse 87; Resp 16; Temp 98.2; Pulse Ox 100% on R/A; Weight 47.63 kg; iw Height 6 ft. 0 in. (182.88 cm); 19:08 BP 125 / 75; Pulse 75; Resp 17; Temp 98.5; Pulse Ox 100% ; bp 17:51 Body Mass Index 14.24 (47.63 kg, 182.88 cm) iw MDM: 18:16 Patient medically screened. la1 18:49 Data reviewed: vital signs, nurses notes, I have discussed the patient's la1 presentation/case with the attending Emergency Department Physician; and as a result, I will discharge patient. Data interpreted: Pulse oximetry: on room air is 100 %. Interpretation: normal. Counseling: I had a detailed discussion with the patient and/or guardian regarding: the historical points, exam findings, and any diagnostic results supporting the discharge/admit diagnosis, the need for outpatient follow up, oncology, to return to the emergency department if symptoms worsen or persist or if there are any questions or concerns that arise at home. ED course: Pt non toxic afebrile, zoster only in one dermatome, strict return precautions given. . Administered Medications: No medications were administered Disposition: 06/23/19 18:51 Discharged to Home. Impression: Zoster [herpes zoster]. - Condition is Stable. - Discharge Instructions: Shingles, Shingles, Pese-xf-Auha. - Prescriptions for Valtrex 1 g Oral Tablet - take 1 tablet by ORAL route every 8 hours for 7 days; 21 tablet. Tramadol 50 mg Oral Tablet - take 1 tablet by ORAL route every 8 hours as needed; 20 tablet. Prednisone 20 mg Oral Tablet - take 1 tablet by ORAL route as directed for 10 days three tablets daily for five days (60mg), two tablets daily for three days (40mg), one tablet daily for two days (20mg) dispense #23; 23 tablet. - Medication Reconciliation Form, Thank You Letter form. - Follow up: Private Physician; When: 2 - 3 days; Reason: Recheck today's complaints, Re-evaluation by your physician. - Problem is new. - Symptoms are unchanged. Addendum: 06/25/2019 19:46 Co-signature as Attending Physician, Jian Meeks MD. r n Signatures: Amalia Eric, RN Jian Hicks MD MD rn Kedar Luciano, [facility] OPERATOR-C [facility] OPERATOR-Cla1 Ethan Chou RN RN bp Corrections: (The following items were deleted from the chart) 06/23 19:11 18:51 06/23/2019 18:51 Discharged to Home. Impression: Zoster [herpes zoster]. bp Condition is Stable. Forms are Medication Reconciliation Form, Thank You Letter, Antibiotic Education, Prescription Opioid Use. Follow up: Private Physician; When: 2 - 3 days; Reason: Recheck today's complaints, Re-evaluation by your physician. Problem is new. Symptoms are unchanged. la1
--- NOTE | 2019-06-23 18:51 | ER ---
Nurse's Notes [facility] Name: Mario Santos Age: 68 yrs Sex: Male : 1950 Arrival Date: 06/23/2019 Time: 17:35 Bed 20 Private MD: Quinn Potts T Diagnosis: Zoster [herpes zoster] Presentation: 06/23 17:49 Presenting complaint: Patient states: hx of pancreatic cancer, had a drain removed from liver on Jun 15 at [facility], developed a rash to left side if chest and neck a day ago , has been putting cortisone cream on it, was worried it might be shingles. Transition of care: patient was not received from another setting of care. Onset of symptoms was June 21, 2019. Risk Assessment: Do you want to hurt yourself or someone else? Patient reports no desire to harm self or others. Initial Sepsis Screen: Does the patient meet any 2 criteria? No. Patient's initial sepsis screen is negative. Does the patient have a suspected source of infection? No. Patient's initial sepsis screen is negative. Care prior to arrival: None. 17:49 Method Of Arrival: Ambulatory 17:49 Acuity: AJ 3 Triage Assessment: 18:00 General: Appears in no apparent distress. comfortable, slender, Behavior is bp cooperative, appropriate for age, anxious. Pain: Denies pain. EENT: No deficits noted. Neuro: No deficits noted. Cardiovascular: No deficits noted. Respiratory: No deficits noted. GI: No signs and/or symptoms were reported involving the gastrointestinal system. : No signs and/or symptoms were reported regarding the genitourinary system. Derm: Rash noted that is vesicular. Musculoskeletal: No deficits noted. Historical: - Allergies: 17:51 lactose; iw - PMHx: 17:51 Hyperlipidemia; Hypertension; Hypothyroidism; pancreatic cancer; iw - PSHx: 17:51 Cholecystectomy; wrist surgery; iw - Immunization history:: Adult Immunizations up to date. - Ebola Screening: : Patient negative for fever greater than or equal to 101.5 degrees Fahrenheit, and additional compatible Ebola Virus Disease symptoms Patient denies exposure to infectious person Patient denies travel to an Ebola-affected area in the 21 days before illness onset No symptoms or risks identified at this time. - Social history:: Smoking status: Patient denies any tobacco usage or history of. Screenin:00 Abuse screen: Denies threats or abuse. Denies injuries from another. Nutritional bp screening: No deficits noted. Tuberculosis screening: No symptoms or risk factors identified. Fall Risk None identified. Assessment: 17:51 General: SEE TRIAGE NOTE. bp 19:09 Reassessment: PT D/C HOME AMBULATORY WITH FAMILY, DX WITH SHINGLES. bp Vital Signs: 17:51 BP 129 / 86; Pulse 87; Resp 16; Temp 98.2; Pulse Ox 100% on R/A; Weight 47.63 kg; iw Height 6 ft. 0 in. (182.88 cm); 19:08 BP 125 / 75; Pulse 75; Resp 17; Temp 98.5; Pulse Ox 100% ; bp 17:51 Body Mass Index 14.24 (47.63 kg, 182.88 cm) ED Course: 17:35 Patient arrived in ED. mr 17:36 Quinn Potts MD is Private Physician. mr 17:50 Triage completed. iw 17:56 Ethan Chou, MELLISA is Primary Nurse. bp 18:00 Patient has correct armband on for positive identification. Bed in low position. Call bp light in reach. Side rails up X2. Adult w/ patient. 18:16 Kedar Luciano FNP-C is [facility]. la1 18:16 Jian Meeks MD is Attending Physician. la1 19:08 Arm band placed on. bp 19:10 No provider procedures requiring assistance completed. Patient did not have IV access bp during this emergency room visit. Administered Medications: No medications were administered Outcome: 18:51 Discharge ordered by . la1 19:10 Discharged to home ambulatory, with family. bp 19:10 Condition: stable 19:10 Discharge instructions given to patient, Instructed on discharge instructions, follow up and referral plans. medication usage, Demonstrated understanding of instructions, follow-up care, medications, Prescriptions given X 3. 19:11 Patient left the ED. bp Signatures: Uyen Farmer Irene, RN RN Kedar Luciano FNP-C [employer]-Cla1 Ethan Chou, RN RN bp Corrections: (The following items were deleted from the chart) 17:50 17:49 Acuity: AJ 4 iw
[2019-06-23 19:20] VITALS: O2SAT 100
[2019-06-23 19:21] VITALS: BP 125/75; TEMP 98.5
== END 2019-06-23 19:11 | disposition home or self-care (01) ==
LOC: ER 17:33
DX: B02.9 Zoster without complications (principal); I10 Essential (primary) hypertension; Z85.07 Personal history of malignant neoplasm of pancreas; Z91.011 Allergy to milk products
CPT/HCPCS: 99282